=== PATIENT | female | born 1930 | race African-American/Black ===

== ENCOUNTER 2016-06-08 14:29 | Emergency (ER) | payer MEDICARE ==
--- NOTE | 2016-06-08 15:13 | ERRECORD ---
[facility] EMERGENCY RECORD PAST MEDICAL HISTORY (14:36 KMOR) MEDICAL HISTORY: Flu vaccine not up to date, Tetanus not up to date, Pneumococcal vaccine not up to date, Past medical history includes history of hyperlipidemia, high cholesterol, currently being treated, Past medical history includes history of hypertension, which has been treated, Patient is compliant. Past medical history includes cardiac history, congestive heart failure. COPD. CAD. FEMALE SURGICAL HISTORY: pacemaker (2012). pacemaker. PM/DEFIB. PSYCHIATRIC HISTORY: No previous psychiatric history. SOCIAL HISTORY: Patient is a former tobacco user, smoked cigarettes, Patient denies alcohol use, Patient denies drug use,. FAMILY HISTORY: Family istory is not significant. KNOWN ALLERGIES No Known Drug Allergies CURRENT MEDICATIONS furosemide: TABLET : Strength - 20 mg : ORAL Patient Dose: 1 tab(s) Oral.Every other day. (14:37 LGIB) spironolactone: TABLET : Strength - 25 mg : ORAL Patient Dose: 1 tab(s) Oral once a day.at lunch. (14:37 LGIB) atorvastatin: TABLET : Strength - 80 mg : ORAL Patient Dose: 1 tab(s) Oral once a day. (14:37 LGIB) aspirin: TABLET : Strength - 325 mg : ORAL Patient Dose: 1 tab(s) Oral once a day. (14:37 LGIB) isosorbide mononitrate: TABLET, EXTENDED RELEASE 24 HR : Strength - 60 mg : ORAL Patient Dose: 1 tab(s) Oral once a day (in the morning). (14:38 LGIB) lisinopril: TABLET : Strength - 2.5 mg : ORAL Patient Dose: 1 tab(s) Oral once a day (in the evening). (14:38 LGIB) Perforomist: VIAL, NEBULIZER (ML) : Strength - 20 mcg/2 mL : INHALATION Patient Dose: 1 vial(s) Nebulize As Needed. (14:39 LGIB) budesonide: AMPUL FOR NEBULIZATION (ML) : Strength - 0.5 mg/2 mL : INHALATION Patient Dose: Unknown. (14:39 LGIB) VITAL SIGNS VITAL SIGNS: BP: 119/93, Pulse: 111, Resp: 20, Pain: 0, O2 sat: 93 on Room Air, Time: 06/08/2016 14:35. (14:35 KMOR) &a-1R&a+25V*p+0X*b6026P*c202B*c15G*c2P*p-0X&a-25V&a+1R Name: Nuha Vivas : 1930 F86 MedRec: [id number] AcctNum: [id number] Prepared: Zully Jun 08, 2016 15:11 by Interface Page 1 of 2 pMD [facility] EMERGENCY RECORD Temp: 98 (Oral), Time: 06/08/2016 14:36. (14:36 LGIB) BP: 95/69, Pulse: 103, Resp: 20 (Non-Labored), Pain: 0, O2 sat: 94 on Room Air, Time: 06/08/2016 15:07. (15:07 LGIB) MEDICATION ADMINISTRATION SUMMARY Drug Name: DuDavidb, Dose Ordered: 3 mL, Route: Nebulize, Status: Given, Time: 14:49 06/08/2016, Detailed record available in Medication Service section. PROBLEM LIST No recorded problems DIAGNOSIS (14:43 MBRI) FINAL: PRIMARY: ACUTE BRONCHITIS UNSPECIFIED. PRESCRIPTION (14:44 MBRI) Mucinex DM: TABLET,EXTENDED RELEASE MULTIPHASE 12 HR : 1,200 mg-60 mg : ORAL (OTC) : Quantity: 1 Unit: tab(s) Route: ORAL Schedule: every 12 hours Dispense: 20 May substitute. Refills: No Refills . NOTES: No refills. Tesjuanita Perles: CAPSULE (HARD, SOFT, ETC.) : 100 mg : ORAL (Rx) : Quantity: 1 Unit: cap(s) Route: ORAL Schedule: every 8 hours PRN Dispense: 21 May substitute. Refills: No Refills . NOTES: ^s=No refills No refills. Zithromax oral: TABLET : 250 mg : ORAL (Rx) : Quantity: 1 Unit: tab(s) Route: ORAL Schedule: once a day Dispense: 6 May substitute. Refills: No Refills . NOTES: 2 tabs po on day 1 then 1 tab po daily for 4 days No refills. predniSONE oral: TABLET : 20 mg : ORAL : Quantity: 3 Unit: tab(s) Route: ORAL Schedule: once a day Dispense: 12 May substitute. Refills: No Refills . NOTES: No refills. DISPOSITION PATIENT: Disposition Type: Discharge, Disposition: *Discharge Home, Condition: Good. (14:43 MBRI) Patient left the department. (15:09 LGIB) Rahman: KMOR=MYLES Suresh, Mary Ellen LGIB=MYLES Alexis, Amaris MBRI=DO Jauregui Matthew &a-1R&a+25V*p+0X*y2747W*c202B*c15G*c2P*p-0X&a-25V&a+1R Name: Nuha Vivas : 1930 F86 MedRec: [id number] AcctNum: [id number] Prepared: Zully Jun 08, 2016 15:11 by Interface Page 2 of 2 pMD MTDD
--- NOTE | 2016-06-08 15:16 | PICIS ---
[facility] EMERGENCY RECORD TRIAGE (14:33 KMOR) TRIAGE NOTES: Nonproductive cough began last night. no fever, no bodyaches no congestion. (14:33 KMOR) PATIENT: NAME: Nuha Vivas, AGE: 86, GENDER: female, : [id number], TIME OF GREET: Sun Jun 08, 2016 14:30, PREFERRED LANGUAGE: Turkmen, ETHNICITY: Not or , ECODE BILLING MAP: [facility], SSN: [id number], Zip Code: [address], KG WEIGHT: 64.86, PHONE: , , , PERSON ID: [id number], PAYMENT: [employer], PCP: DO PAN KRISTEL. (14:33 KMOR) COMPLAINT: cough. (14:33 KMOR) ADMISSION: URGENCY: 4 Non Urgent, ADMISSION SOURCE: Home, TRANSPORT: CAR, BED: ER -03. (14:33 KMOR) ASSESSMENT: Assessment: A&OX4. RR EVEN AND UNLABORED., Symptoms began yesterday. (14:36 KMOR) PAIN: No complaint of pain. (14:36 KMOR) IMMUNIZATIONS: Flu vaccine not up to date, Tetanus not up to date, Pneumococcal vaccine not up to date. (14:36 KMOR) SIRS SCORING: Heart Rate 110-139 (2), Temp range 96.8-101.1 (0), respiratory rate 12-24 (0), Mental Status altered: no (0), Infection or Suspected Infection: No. (14:36 KMOR) TRIAGE SCREENING: Patient denies suicidal ideation, Patient denies presence of domestic violence. (14:36 KMOR) LMP: LMP: Menopause. (14:36 KMOR) PROVIDERS: TRIAGE NURSE: Mary Ellen Suresh RN. (14:33 KMOR) VITAL SIGNS: BP 119/93, Pulse 111, Resp 20, Pain 0, O2 Sat 93, on Room Air, Time 06/08/2016 14:35. (14:35 KMOR) PREVIOUS VISIT ALLERGIES: No Known Drug Allergies. (14:33 KMOR) No Known Drug Allergies. (14:36 KMOR) KNOWN ALLERGIES No Known Drug Allergies CURRENT MEDICATIONS furosemide: TABLET : Strength - 20 mg : ORAL Patient Dose: 1 tab(s) Oral.Every other day. (14:37 LGIB) spironolactone: TABLET : Strength - 25 mg : ORAL Patient Dose: 1 tab(s) Oral once a day.at lunch. (14:37 LGIB) atorvastatin: TABLET : Strength - 80 mg : ORAL Patient Dose: 1 tab(s) Oral once a day. (14:37 LGIB) aspirin: TABLET : Strength - 325 mg : ORAL Patient Dose: 1 tab(s) Oral once a day. (14:37 LGIB) isosorbide mononitrate: TABLET, EXTENDED RELEASE 24 HR : Strength - 60 mg : ORAL &a-1R&a+25V*p+0X*b1293I*c202B*c15G*c2P*p-0X&a-25V&a+1R Name: Nuha Vivas : 1930 F86 MedRec: [id number] AcctNum: [id number] Prepared: Zully Jun 08, 2016 15:14 by Interface Page 1 of 5 pMD [facility] EMERGENCY RECORD Patient Dose: 1 tab(s) Oral once a day (in the morning). (14:38 LGIB) lisinopril: TABLET : Strength - 2.5 mg : ORAL Patient Dose: 1 tab(s) Oral once a day (in the evening). (14:38 LGIB) Perforomist: VIAL, NEBULIZER (ML) : Strength - 20 mcg/2 mL : INHALATION Patient Dose: 1 vial(s) Nebulize As Needed. (14:39 LGIB) budesonide: AMPUL FOR NEBULIZATION (ML) : Strength - 0.5 mg/2 mL : INHALATION Patient Dose: Unknown. (14:39 LGIB) VITAL SIGNS VITAL SIGNS: BP: 119/93, Pulse: 111, Resp: 20, Pain: 0, O2 sat: 93 on Room Air, Time: 06/08/2016 14:35. (14:35 KMOR) Temp: 98 (Oral), Time: 06/08/2016 14:36. (14:36 LGIB) BP: 95/69, Pulse: 103, Resp: 20 (Non-Labored), Pain: 0, O2 sat: 94 on Room Air, Time: 06/08/2016 15:07. (15:07 LGIB) NURSING ASSESSMENT: ENT (14:47 KMOR) CONSTITUTIONAL: Patient arrives ambulatory, Gait steady, History obtained from patient, Patient appears comfortable, Patient cooperative, Patient alert, Oriented to person, place and time, Skin warm, Skin dry, Skin normal in color, Mucous membranes pink, Mucous membranes moist, Patient is well-groomed, Patient complains of cough, Dry cough stated last night, no fever or chills, no congestion. PAIN: Patient rates pain as 0 out of 10. ENT: Ear assessment findings include ear normal to inspection, Nasal assessment findings include nose normal to inspection, Sinuses normal, Nasal mucosa normal, no complaint of congestion, Mouth and throat assessment findings include mouth inspection normal, Uvula normal, Tonsils normal, Mucous membranes pink, and moist, Able to swallow, Speech normal, no associated fever. RESPIRATORY/CHEST: Breath sounds clear, Respiratory assessment findings include respiratory effort easy, Respirations regular, Conversing normally, Neck and chest exam findings include trachea midline, Chest expansion equal, Chest movement symmetrical, no signs of distress, Associated with cough, dry, non-productive, no associated fever. NOTES: Patient tolerated procedure well. NURSING PROCEDURE: DISCHARGE NOTE (15:08 LGIB) DISCHARGE: Patient discharged to home, ambulating without assistance, family driving, accompanied by other family member, Summary of Care printed/ provided, Patient requested and was provided an electronic copy of Discharge Instructions, Discharge instructions given to patient, Simple or moderate discharge teaching performed, Prescriptions given and instructions on side effects given, Above &a-1R&a+25V*p+0X*g4872V*c202B*c15G*c2P*p-0X&a-25V&a+1R Name: Nuha Vivas : 1930 F86 MedRec: [id number] AcctNum: [id number] Prepared: Zully Jun 08, 2016 15:14 by Interface Page 2 of 5 pMD [facility] EMERGENCY RECORD person(s) verbalized understanding of discharge instructions and follow-up care, Patient treated and evaluated by physician. BELONGINGS: Belongings and valuables with patient at time of discharge include:, Belongings remain with patient, Valuables remain with patient. NURSING PROCEDURE: RESPIRATORY INTERVENTIONS RESPIRATORY INTERVENTIONS: Respiratory interventions indicated for wheezing, Notes: DUONEB. (14:49 LGIB) FOLLOW-UP: After procedure, oxygen saturation 94%, on room air. (15:09 LGIB) ORDER DETAILS Order Name: ASHLEY Lafleur Initial Trmt, Status: Active, Time: 14:47 06/08/2016, User: ROHIT, - Ordered for: DO Jauregui Matthew, - Entered by: DO Jauregui Matthew - Zully Jun 08, 2016 14:47, - Quantity: 1. MEDICATION ADMINISTRATION SUMMARY Drug Name: DuoNeb, Dose Ordered: 3 mL, Route: Nebulize, Status: Given, Time: 14:49 06/08/2016, Detailed record available in Medication Service section. MEDICATION SERVICE (14:49 [facility]) DuoNeb: Order: DuoNeb (ipratropium bromide/albuterol sulfate) - Dose: 3 mL : Nebulize Ordered by: Rodrigo Jauregui DO Entered by: DO Zully Bellamy Jun 08, 2016 14:47 Documented as given by: MYLES Galicia Jun 08, 2016 14:49 Patient, Medication, Dose, Route and Time verified prior to administration. Site: Medication administered via Hand-held nebulizer, With oxygen, Correct patient, time, route, dose and medication confirmed prior to administration, Patient advised of actions and side-effects prior to administration, Allergies confirmed and medications reviewed prior to administration, Patient in position of comfort, Side rails up, Cart in lowest position, Family at bedside. PAST MEDICAL HISTORY (14:36 KMOR) MEDICAL HISTORY: Flu vaccine not up to date, Tetanus not up to date, Pneumococcal vaccine not up to date, Past medical history includes history of hyperlipidemia, high cholesterol, currently being treated, Past medical history includes history of hypertension, which has been treated, Patient is compliant. Past medical history includes cardiac history, congestive heart failure. COPD. CAD. FEMALE SURGICAL HISTORY: pacemaker (2012). pacemaker. PM/DEFIB. &a-1R&a+25V*p+0X*u4735S*c202B*c15G*c2P*p-0X&a-25V&a+1R Name: Nuha Vivas : 1930 F86 MedRec: [id number] AcctNum: [id number] Prepared: Zully Jun 08, 2016 15:14 by Interface Page 3 of 5 pMD [facility] EMERGENCY RECORD PSYCHIATRIC HISTORY: No previous psychiatric history. SOCIAL HISTORY: Patient is a former tobacco user, smoked cigarettes, Patient denies alcohol use, Patient denies drug use,. FAMILY HISTORY: Family istory is not significant. EVENTS TRANSFER: Triage to Emergency Emergency Room -03. (Zully Jun 08, 2016 14:33 KMOR) Removed from Emergency Emergency Room -03. (15:09 LGIB) PROBLEM LIST No recorded problems DIAGNOSIS (14:43 MBRI) FINAL: PRIMARY: ACUTE BRONCHITIS UNSPECIFIED. DISPOSITION PATIENT: Disposition Type: Discharge, Disposition: *Discharge Home, Condition: Good. (14:43 MBRI) Patient left the department. (15:09 LGIB) INSTRUCTION (14:45 MBRI) DISCHARGE: BRONCHITIS, ABX [place] (ADULT). FOLLOWUP: DO PAN KRISTEL, [facility], [address] [place] [address] [place] [address], [phone], Follow up with Primary Care Physician in 10-14 days. SPECIAL: Please return for any further issues or concerns, we would be happy to see you. We hope you feel better soon. Follow-up with your primary physician as needed. PRESCRIPTION (14:44 MBRI) Mucinex DM: TABLET,EXTENDED RELEASE MULTIPHASE 12 HR : 1,200 mg-60 mg : ORAL (OTC) : Quantity: 1 Unit: tab(s) Route: ORAL Schedule: every 12 hours Dispense: 20 May substitute. Refills: No Refills . NOTES: No refills. Tessalon Perles: CAPSULE (HARD, SOFT, ETC.) : 100 mg : ORAL (Rx) : Quantity: 1 Unit: cap(s) Route: ORAL Schedule: every 8 hours PRN Dispense: 21 May substitute. Refills: No Refills . NOTES: ^s=No refills No refills. Zithromax oral: TABLET : 250 mg : ORAL (Rx) : Quantity: 1 Unit: tab(s) Route: ORAL Schedule: once a day Dispense: 6 May substitute. Refills: No Refills . NOTES: 2 tabs po on day 1 then 1 tab po daily for 4 days No refills. predniSONE oral: TABLET : 20 mg : ORAL : Quantity: 3 &a-1R&a+25V*p+0X*n7208R*c202B*c15G*c2P*p-0X&a-25V&a+1R Name: Nuha Vivas : 1930 F86 MedRec: [id number] AcctNum: [id number] Prepared: Zully Jun 08, 2016 15:14 by Interface Page 4 of 5 D [facility] EMERGENCY RECORD Unit: tab(s) Route: ORAL Schedule: once a day Dispense: 12 May substitute. Refills: No Refills . NOTES: No refills. IMAGING (15:10 LGIB) *DISCHARGE INSTRUCTIONS RECEIPT: Image captured from scanner. Page 2 added. Image captured from scanner. *SUPPLY CHARGE SHEET: Image captured from scanner. Rahman: KMOR=MYLES Suresh, Mary Ellen LGIB=MYLES Alexis, Amaris MBRI=DO Jauregui Matthew &a-1R&a+25V*p+0X*s1142D*c202B*c15G*c2P*p-0X&a-25V&a+1R Name: Nuha Vivas : 1930 F86 MedRec: [id number] AcctNum: [id number] Prepared: Zully Jun 08, 2016 15:14 by Interface Page 5 of 5 D [facility] MEDICATION RECONCILIATION You were seen in the Emergency Department on: Zully Jun 08, 2016 KNOWN ALLERGIES No Known Drug Allergies MEDICATIONS GIVEN WHILE IN THE EMERGENCY DEPARTMENT DuoNeb (ipratropium bromide/albuterol sulfate) - Dose: 3 milliliter(s) : Nebulize HOME MEDICATIONS CONTINUE PRESCRIBED aspirin : TABLET : Strength - 325 mg : ORAL Continue as prescribed Patient had been takin tab(s) Oral once a day. atorvastatin : TABLET : Strength - 80 mg : ORAL Continue as prescribed Patient had been takin tab(s) Oral once a day. budesonide : AMPUL FOR NEBULIZATION (ML) : Strength - 0.5 mg/2 mL : INHALATION Continue as prescribed Patient had been taking: Dose unknown furosemide : TABLET : Strength - 20 mg : ORAL Continue as prescribed Patient had been takin tab(s) Oral. Comment: Every other day. isosorbide mononitrate : TABLET, EXTENDED RELEASE 24 HR : Strength - 60 mg : ORAL Continue as prescribed Patient had been takin tab(s) Oral once a day (in the morning). lisinopril : TABLET : Strength - 2.5 mg : ORAL Continue as prescribed Patient had been takin tab(s) Oral once a day (in the evening). &a-1R&a+25V*p+0X*h7578V*c202B*c15G*c2P*p-0X&a-25V&a+1R Name: Nuha Vivas : 1930 F86 MedRec: [id number] AcctNum: [id number] Prepared: Zully Jun 08, 2016 15:14 by Interface pMD [facility] MEDICATION RECONCILIATION Perforomist : VIAL, NEBULIZER (ML) : Strength - 20 mcg/2 mL : INHALATION Continue as prescribed Patient had been takin vial(s) Nebulize As Needed. spironolactone : TABLET : Strength - 25 mg : ORAL Continue as prescribed Patient had been takin tab(s) Oral once a day. Comment: at lunch. Notes from the emergency department Reviewed with family PRESCRIPTIONS (4) Printed (4) Mucinex DM : TABLET,EXTENDED RELEASE MULTIPHASE 12 HR : 1,200 mg-60 mg : ORAL (OTC) Quantity: 1, Unit: tab(s), Route: ORAL (OTC), Schedule: every 12 hours, Dispense: 20 Tessalon Perles : CAPSULE (HARD, SOFT, ETC.) : 100 mg : ORAL (Rx) Quantity: 1, Unit: cap(s), Route: ORAL (Rx), Schedule: every 8 hours PRN, Dispense: 21 Zithromax oral : TABLET : 250 mg : ORAL (Rx) Quantity: 1, Unit: tab(s), Route: ORAL (Rx), Schedule: once a day, Dispense: 6 &a-1R&a+25V*p+0X*u6862G*c202B*c15G*c2P*p-0X&a-25V&a+1R Name: Nuha Vivas : 1930 F86 MedRec: [id number] AcctNum: [id number] Prepared: Zully Jun 08, 2016 15:14 by Interface pMD MTDD
== END 2016-06-08 15:11 | disposition home or self-care (01) ==
LOC: BURERS 14:29
DX: J20.9 Acute bronchitis, unspecified (principal); E78.5 Hyperlipidemia, unspecified; I10 Essential (primary) hypertension
CPT/HCPCS: 94640; J7620

== ENCOUNTER 2016-07-05 12:39 | Emergency (ER) | payer MEDICARE ==
[2016-07-05 13:19] LABS: #Basophils 0.1 thou/uL (0.0-0.2); #Eosinphils 0.2 thou/uL (0.0-0.7); #Lymphocytes 1.7 thou/uL (1.20-3.40); #Monocytes 0.4 thou/uL (0.11-0.59); #Neutrophils 3.5 thou/uL (1.40-6.50); %Basophils 1.5 % (0.0-1.0); %Eosinophils 2.6 % (0.0-10.0); %Monocytes 7.6 % (0.0-10.0); Hematocrit 43.9 % (36.0-47.0); Mean Platelet Volume 6.8 fL (7.4-10.4); Red Blood Cell (RBC) Count 4.58 mill/uL (4.20-5.40); White Blood Cell (WBC) Count 5.8 thou/uL (4.8-10.8)
[2016-07-05 13:32] LABS: ALT (SGPT) 23 U/L (0-55); AST (SGOT) 28 U/L (5-34); Alkaline Phosphatase 110 U/L (40-150); Anion Gap 11 mmol/L (10-20); BUN (Urea Nitrogen) 19 mg/dL (9.8-20.1); Bilirubin, Total 0.4 mg/dL (0.2-1.2); Calc. Creatinine Clearance 0 mL/min (70-130); Calcium 9.7 mg/dL (7.8-10.44); Carbon Dioxide 28 mmol/L (23-31); Chloride 105 mmol/L (98-107); Estimated GFR-MDRD 74; Protein, Total 6.2 g/dL (5.8-8.1)
[2016-07-05 13:36] LABS: Troponin I 0.024 ng/mL (< 0.028)
--- NOTE | 2016-07-05 15:10 | PICIS ---
[facility] EMERGENCY RECORD TRIAGE ([facility] Jul 05, 2016 12:52 LGIB) TRIAGE NOTES: cp for 2 hours. ([facility] Jul 05, 2016 12:52 LGIB) PATIENT: NAME: Nuha Vivas, AGE: 86, GENDER: female, : [id number], TIME OF GREET: Sat Jul 05, 2016 12:39, PREFERRED LANGUAGE: Romansh, ETHNICITY: Not or , ECODE BILLING MAP: [facility], SSN: [id number], Zip Code: [address], KG WEIGHT: 64.41, PHONE: , , , PERSON ID: [id number], PAYMENT: [place], PCP: DO PAN KRISTEL. ([facility] Jul 05, 2016 12:52 LGIB) COMPLAINT: HIGH RISK COMPLAINT: Chest Pain. ([facility] Jul 05, 2016 12:52 LGIB) ADMISSION: URGENCY: 2 Emergent, ADMISSION SOURCE: Home, TRANSPORT: CAR, BED: ER -02. ([facility] Jul 05, 2016 12:52 LGIB) SIRS SCORING: Heart Rate 55-109 (0), Temp range 96.8-101.1 (0), respiratory rate 12-24 (0), Mental Status altered: no (0). (13:43 LGIB) PROVIDERS: TRIAGE NURSE: Amaris Alexis RN. ([facility] Jul 05, 2016 12:52 LGIB) PREVIOUS VISIT ALLERGIES: No Known Drug Allergies. ([facility] Jul 05, 2016 12:52 LGIB) No Known Drug Allergies. (13:43 LGIB) KNOWN ALLERGIES No Known Allergies (Unconfirmed) No Known Drug Allergies (Unconfirmed) CURRENT MEDICATIONS (14:21 LGIB) furosemide: TABLET : Strength - 20 mg : ORAL Patient Dose: 1 tab(s) Oral.Every other day. spironolactone: TABLET : Strength - 25 mg : ORAL Patient Dose: 1 tab(s) Oral once a day.at lunch. atorvastatin: TABLET : Strength - 80 mg : ORAL Patient Dose: 1 tab(s) Oral once a day. aspirin: TABLET : Strength - 325 mg : ORAL Patient Dose: 1 tab(s) Oral once a day. isosorbide mononitrate: TABLET, EXTENDED RELEASE 24 HR : Strength - 60 mg : ORAL Patient Dose: 1 tab(s) Oral once a day (in the morning). lisinopril: TABLET : Strength - 2.5 mg : ORAL Patient Dose: 1 tab(s) Oral once a day (in the evening). Perforomist: VIAL, NEBULIZER (ML) : Strength - 20 mcg/2 mL : INHALATION Patient Dose: 1 vial(s) Nebulize As Needed. budesonide: &a-1R&a+25V*p+0X*e7425M*c202B*c15G*c2P*p-0X&a-25V&a+1R Name: Nuha Vivas : 1930 F86 MedRec: [id number] AcctNum: [id number] Prepared: Sat Jul 05, 2016 19:52 by Interface Page [address] [facility] EMERGENCY RECORD AMPUL FOR NEBULIZATION (ML) : Strength - 0.5 mg/2 mL : INHALATION Patient Dose: Unknown. VITAL SIGNS VITAL SIGNS: BP: 159/107, Pulse: 99, Resp: 18 (Non-Labored), Temp: 98.1 (Oral), O2 sat: 95 on Room Air, Time: 07/05/2016 12:47. (12:47 LGIB) Pain: utd, Time: 07/05/2016 12:53. (12:53 LGIB) Pain: 0, Time: 07/05/2016 14:21. (14:21 LGIB) BP: 134/99, Pulse: 81, Resp: 18 (Non-Labored), O2 sat: 95 on Room Air, Time: 07/05/2016 14:15. (14:15 LGIB) BP: 134/87, Pulse: 85, Resp: 18, Temp: 98.4 (Oral), Pain: 0, O2 sat: 93 on Room Air, Time: 07/05/2016 14:46. (14:46 AHOO) NURSING ASSESSMENT: FALL RISK (14:19 LGIB) FALL RISK: Fall risk assessment findings include: no history of falls (0), No bed rest greater than 2 days (0), No use of level of consciousness altering agents with mentation or cognitive changes (0), No change in blood pressure (0), No sensory deficits (0), Impaired mobility (3), No neurologic diagnosis (0), No elimination problems (0), No confusion (0), Total score 3. 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 NAD, RR EVEN AND UNLABORED. DESCRIBES PAIN TINGLING. PT STATES SHE HAS SOB BUT IS NOT SYMPTOMATIC. PAIN: tingling pain, to the left chest, PATIENT CANNOT GIVE A NUMERIC SCALE, Pain exacerbated by nothing. RESPIRATORY/CHEST: Breath sounds clear, Respiratory assessment findings include respiratory effort easy, Respirations regular, Conversing normally, Neck and chest exam findings include trachea midline, Chest expansion equal, Chest movement symmetrical, no signs of distress, no retractions noted, no cyanosis, no associated cough noted, no associated fever. ENT: Ear assessment findings include ear normal to inspection, Nasal assessment findings include nose normal to inspection, Mouth and throat assessment findings include mouth inspection normal. SAFETY: Side rails up, Cart/Stretcher in lowest position, Family at bedside, Call light within reach, Hospital ID band on. NURSING ASSESSMENT: SKIN (14:51 AHOO) CONSTITUTIONAL: Complex assessment performed, Patient arrives ambulatory, Gait steady, History obtained from patient, Patient appears comfortable, Patient cooperative, Patient alert, Oriented to &a-1R&a+25V*p+0X*r5224N*c202B*c15G*c2P*p-0X&a-25V&a+1R Name: Nuha Vivas : 1930 F86 MedRec: [id number] AcctNum: [id number] Prepared: [place] Jul 05, 2016 19:52 by Interface Page [address] [facility] EMERGENCY RECORD person, place and time, Skin warm, Skin dry, Skin normal in color, Mucous membranes pink, Mucous membranes moist, Patient is well-groomed, Patient complains of CHEST PAIN. LISSET SCALE: (4) Sensory perception has no impairment, (4) Skin is rarely moist, (4) Patient walks frequently, (4) No mobility limitations, (3) Adequate nutrition, (2) Patient has potential problem moving, Lisset Risk Total: 21. NURSING PROCEDURE: BEDSIDE RADIOLOGY (12:59 LGIB) BEDSIDE RADIOLOGY: Portable chest x-ray performed. NURSING PROCEDURE: BEDSIDE SIRS TESTING (14:48 AHOO) SCORES: Heart Rate 55-109 (0), Temp range 96.8-101.1 (0), respiratory rate 12-24 (0), Latest WBC 3-14.9 (0), Mental Status altered: no (0), Infection or Suspected Infection: No. NURSING PROCEDURE: IV IV SITE 1: IV therapy indicated for medication administration, IV established, to the right antecubital, using a 20 gauge catheter, in one attempt, Saline lock established, Flushed with normal saline (mls): 10, Labs drawn at time of placement, labeled in the presence of the patient and sent to lab. (13:00 LGIB) FOLLOW-UP SITE 1: After procedure, sterile transparent dressing applied, After procedure, no drainage at IV site, After procedure, no swelling at IV site, After procedure, no redness at IV site, Notes: IV PATENT UPON TRANSFER WITHOUT ANY SWELLING, BRUISING OR BLEEDING. (14:49 AHOO) NURSING PROCEDURE: NURSE NOTES (14:21 LGIB) NURSES NOTES: Notes: NAD, RR EVEN AND UNLABORED. NO NEEDS AT THIS TIME. PT IS PAIN FREE. NURSING PROCEDURE: TRANSFER TRANSFER: Reason for transfer need for specialized care, Diagnosis: CHEST PAIN, Accepting institution: [facility], Accepting physician: DR CLEMENT, Referring physician: DR LEE, Transported by urgent ambulance, Summary of Care printed, Copy of patient record prepared for receiving facility, Medication reconciliation form prepared and sent to receiving facility, Patient consent for transfer signed, Family member contacted, PT FAMILY AT BEDSIDE AND NOTIFIED, Notes: 1426 CALLED TRANSFER CENTER AND SPOKE WITH BRYANT, 1431 DR CLEMENT ACCEPTED, 1431 ACCEPTIN AD IS [facility], 1435 CALLED EMS AND SPOKE WITH MAYE, 1450 EMS ARRIVED TO ER, 1457 EMS LEFT WITH THE PT. (14:57 AHOO) Report called to receiving facility, MYLES VOSS, Provided opportunity to answer questions. (15:00 LGIB) ORDER DETAILS Order Name: B type Natriuretic Peptide, Status: Active, Time: 12:53 &a-1R&a+25V*p+0X*c1827P*c202B*c15G*c2P*p-0X&a-25V&a+1R Name: Nuha Vivas : 1930 F86 MedRec: [id number] AcctNum: [id number] Prepared: Sat Jul 05, 2016 19:52 by Interface Page [address] [facility] EMERGENCY RECORD 07/05/2016, User: WMEI, - Ordered for: DO Lee William, - Entered by: DO Lee William - Sat Jul 05, 2016 12:53, - Quantity: 1, Order Name: Cardiac Profile w/CKMB & Troponin - I, Status: Active, Time: 12:53 07/05/2016, User: WMEI, - Ordered for: DO Lee William, - Entered by: DO Lee William - Sat Jul 05, 2016 12:53, - Quantity: 1, Order Name: CBC with Differential, Status: Active, Time: 12:53 07/05/2016, User: WMEI, - Ordered for: DO Lee William, - Entered by: DO Lee William - Sat Jul 05, 2016 12:53, - Quantity: 1, Order Name: Comprehensive Metabolic Panel, Status: Active, Time: 12:53 07/05/2016, User: WMEI, - Ordered for: DO Lee William, - Entered by: DO Lee William - Sat Jul 05, 2016 12:53, - Quantity: 1, Order Name: EKG 12 Lead in Emergency Room, Status: Active, Time: 12:53 07/05/2016, User: WMEI, - Ordered for: DO Lee William, - Entered by: DO Lee William - Sat Jul 05, 2016 12:53, - Quantity: 1, Order Name: SALINE LOCK, Status: Done, Time: 12:54 07/05/2016, User: LGIB, - Ordered for: DO Lee William, - Entered by: DO Lee William - Sat Jul 05, 2016 12:53, - Quantity: 1, Order Name: XR Chest 1 View Portable, Status: Active, Time: 12:53 07/05/2016, User: [facility], - Ordered for: DO Lee William, - Entered by: DO Lee William - Sat Jul 05, 2016 12:53, - Quantity: 1. MEDICATION ADMINISTRATION SUMMARY Drug Name: aspirin oral, Dose Ordered: 324 mg, Route: Oral, Status: Given, Time: 12:59 07/05/2016, Detailed record available in Medication Service section. MEDICATION SERVICE aspirin oral: Order: aspirin oral (aspirin) - Dose: 324 mg : Oral Ordered by: Nikita Lee DO Entered by: Nikita Lee DO Sat Jul 05, 2016 12:53 , Acknowledged by: Amaris Alexis RN Sat Jul 05, 2016 12:54 Documented as given by: Amaris Alexis RN Sat Jul 05, 2016 12:59 Patient, Medication, Dose, Route and Time verified prior to administration. &a-1R&a+25V*p+0X*b7092A*c202B*c15G*c2P*p-0X&a-25V&a+1R Name: Nuha Vivas : 1930 F86 MedRec: [id number] AcctNum: [id number] Prepared: Sat Jul 05, 2016 19:52 by Interface Page [address] [facility] EMERGENCY RECORD Site: Medication administered P.O., Correct patient, time, route, dose and medication confirmed prior to administration, Patient advised of actions and side-effects prior to administration, Allergies confirmed and medications reviewed prior to administration, Patient in position of comfort, Side rails up, Cart in lowest position, Family at bedside. : Follow Up : Response assessment performed, No signs or symptoms of allergic reaction noted. (14:49 AHOO) HPI CHEST PAIN (12:53 [facility]) CHIEF COMPLAINT: Patient presents for evaluation of chest pain, ongoing, Patient presents for evaluation of stent? 2 yrs ago. HISTORIAN: History provided by patient, for 2 hrs substernal better but still present. LOCATION: Symptoms are localized, most severe in substernal area. QUALITY: Pain is dull in nature. TIME COURSE: Sudden onset of symptoms. ASSOCIATED WITH: No associated chills, No associated fever, Associated with shortness of breath, intermittent. EXACERBATED BY: Patient's condition not exacerbated by cough, Patient's condition not exacerbated by deep breaths. RELIEVED BY: Patient's condition relieved by nothing. ROS (12:55 WMEI) CONSTITUTIONAL: Historian denies chills, denies fever. EYES: Historian denies eye pain, denies eye discharge. ENT: Historian denies otalgia, denies sore throat. CARDIOVASCULAR: Historian reports chest pain, substernal, no radiation. RESPIRATORY: Historian denies cough, reports shortness of breath. see hpi. GI: Historian denies abdominal pain, denies nausea, denies vomiting. GENITOURINARY FEMALE: Historian denies dysuria, denies urgency. MUSCULOSKELETAL: Historian denies injury, denies joint swelling. SKIN: Historian denies skin changes, denies skin lesions. NEUROLOGIC: Historian denies focal weakness, denies mental status changes. PSYCHIATRIC: Historian denies alcohol abuse, denies depression, denies drug abuse, denies emotional lability. PAST MEDICAL HISTORY (13:43 LGIB) MEDICAL HISTORY: Flu vaccine not up to date, Tetanus not up to date, Pneumococcal vaccine not up to date, Past medical history includes history of hyperlipidemia, high cholesterol, currently being treated, Past medical history includes history of hypertension, which has been treated, Patient is compliant. Past medical history includes &a-1R&a+25V*p+0X*x1394Y*c202B*c15G*c2P*p-0X&a-25V&a+1R Name: Nuha Vivas : 1930 F86 MedRec: [id number] AcctNum: [id number] Prepared: [place] Jul 05, 2016 19:52 by Interface Page [address] [facility] EMERGENCY RECORD cardiac history, congestive heart failure. COPD. CAD. verified 07/05/16. FEMALE SURGICAL HISTORY: PM/DEFIB. VERIFIED 07/05/16. PSYCHIATRIC HISTORY: No previous psychiatric history. VERIFIED 07/05/16. SOCIAL HISTORY: Patient is a former tobacco user, smoked cigarettes, Patient denies alcohol use, Patient denies drug use,. VERIFIED 07/05/16. FAMILY HISTORY: Family istory is not significant. PHYSICAL EXAM (12:57 WMEI) CONSTITUTIONAL: Vital Signs Reviewed, Patient appears non toxic, Patient alert and oriented to person, place and time. HEAD: Head exam included findings of head atraumatic, normocephalic. EYES: Conjunctiva normal, Sclera normal. ENT: Ear exam normal, Nose exam normal, Pharynx exam normal. NECK: Neck exam included findings of normal range of motion, Trachea midline. RESPIRATORY CHEST: Respiratory exam included findings of no respiratory distress, Breath sounds clear, Chest exam included findings of chest movement symmetrical. CARDIOVASCULAR: Heart rate regular rate and rhythm, Heart sounds normal. ABDOMEN FEMALE: Abdominal exam included findings of abdomen nontender, Liver normal, Spleen normal. BACK: Back exam included findings of normal inspection, range of motion normal. LOWER EXTREMITY: Lower extremity exam included findings of inspection normal, Range of motion normal, Motor strength normal. NEURO: Danica coma scale 15, Neuro exam findings include patient oriented to person, place and time, Speech normal, Gait normal. SKIN: Skin exam included findings of skin warm, dry, and normal in color. LYMPHATIC: Lymphatic exam normal. PSYCHIATRIC: Psychiatric exam included findings of patient oriented to person place and time, Normal affect, Judgment normal, Insight normal. EVENTS TRANSFER: Triage to Emergency Emergency Room -02. (Sat Jul 05, 2016 12:52 LGIB) Removed from Emergency Emergency Room -02. (14:58 LGIB) RADIOLOGYINTERPRETATION (14:32 WMEI) MANAGER PARTY: Preliminary review of x-rays by, ED Physician, no change from chest last yr. PROBLEM LIST No recorded problems &a-1R&a+25V*p+0X*a9930N*c202B*c15G*c2P*p-0X&a-25V&a+1R Name: Nuha Vivas : 1930 F86 MedRec: [id number] AcctNum: [id number] Prepared: Sat Jul 05, 2016 19:52 by Interface Page [address] [facility] EMERGENCY RECORD DIAGNOSIS (14:01 WMEI) FINAL: PRIMARY: chest pain r/o mi. DISPOSITION PATIENT: Disposition Type: Discharge, Disposition: *Discharge Home. (14:01 WMEI) Disposition Type: Transfer, Disposition: Transfer to [facility], Disposition Transport: Ambulance, Condition: Fair. (14:01 WMEI) Patient left the department. (14:58 LGIB) PRESCRIPTION No recorded prescriptions IMAGING *EKG: Image captured from scanner. (14:01 AHOO) CONSENTS: Image captured from scanner. (14:55 AHOO) *MEMORANDUM OF TRANSFER: Image captured from scanner. (14:56 AHOO) PHYSICIAN CERTIFICATION STATEMENT: Image captured from scanner. (14:56 AHOO) *SUPPLY CHARGE SHEET: Image captured from scanner. (14:56 AHOO) ADMIN (19:48 [facility]) DIGITAL SIGNATURE: DO Lee William. RESULTS (14:52 LGIB) LABORATORY: B type Natriuretic Peptide Collection DT: [facility] Jul 05, 2016 13:15, *B type Natriuretic Peptide 106.8 - H pg/mL, Range (0-100). Cardiac Profile w/CKMB & TropI Collection DT: [facility] Jul 05, 2016 13:15, CKMB 3.2 ng/mL, Range (0-6.6), Troponin I 0.024 ng/mL, Range (< 0.028), Reference Range , 0.00 - 0.028 ng/mL Negative 0.029 - 0.29 ng/mL , Indeterminate Greater or Equal to 0.3 ng/mL Strongly suggests [place] , . Comprehensive Metabolic Panel Collection DT: [facility] Jul 05, 2016 13:15, Sodium 140 mmol/L, Range (136-145), Potassium 4.0 mmol/L, Range (3.5-5.1), Chloride 105 mmol/L, Range (98-107), Carbon Dioxide 28 mmol/L, Range (23-31), Anion Gap 11 mmol/L, Range (10-20), BUN (Urea Nitrogen) 19 mg/dL, Range (9.8-20.1), Creatinine 0.88 mg/dL, Range (0.6-1.1), Estimated GFR-MDRD 74 , Reference Range for Estimated GFR: Greater than 90, mL/min/1.73 m2 &a-1R&a+25V*p+0X*j4227K*c202B*c15G*c2P*p-0X&a-25V&a+1R Name: Nuha Vivas : 1930 F86 MedRec: [id number] AcctNum: [id number] Prepared: Sat Jul 05, 2016 19:52 by Interface Page [address] [facility] EMERGENCY RECORD NOTE: The MDRD equation has not been validated for use, with the elderly (over 70 years of age), women, patients with, serious comorbid condition or persons with extremes of body size, muscle, mass, or nutritional status. , *Glucose 140 - H mg/dL, Range (83-110), Calcium 9.7 mg/dL, Range (7.8-10.44), Bilirubin, Total 0.4 mg/dL, Range (0.2-1.2), Protein, Total 6.2 g/dL, Range (5.8-8.1), NOTE: Plasma values are generally 0.3 to 0.5 g/dL higher than serum values, due to the presence of fibrinogen. , *Albumin 3.2 - L g/dL, Range (3.4-4.8), Globulin 3.0 g/dL, Range (2.4-3.5), *Alb/Glob Ratio 1.1 - L g/dL, Range (1.2-2.2), Alkaline Phosphatase 110 U/L, Range (40-150), AST (SGOT) 28 U/L, Range (5-34), ALT (SGPT) 23 U/L, Range (0-55). CBC with Differential Collection DT: Sat Jul 05, 2016 13:15, White Blood Cell (WBC) Count 5.8 thou/uL, Range (4.8-10.8), Red Blood Cell (RBC) Count 4.58 mill/uL, Range (4.20-5.40), Hemoglobin 13.9 g/dL, Range (12.0-16.0), Hematocrit 43.9 %, Range (36.0-47.0), Mean Corpuscular Volume 95.8 fl, Range (81.0-99.0), Mean Corpuscular Hemoglobin 30.3 pg, Range (27.0-31.0), *Mean Corpuscular HGB CONC 31.6 - L g/dL, Range (32.0-36.0), RBC Distribution Width 13.5 %, Range (11.5-14.5), Platelet Count 272 thou/uL, Range (130-400), *Mean Platelet Volume 6.8 - L fL, Range (7.4-10.4), %Neutrophils 59.9 %, Range (42.0-75.0), %Lymphocytes 28.4 %, Range (21.0-51.0), %Monocytes 7.6 %, Range (0.0-10.0), %Eosinophils 2.6 %, Range (0.0-10.0), *%Basophils 1.5 - H %, Range (0.0-1.0), #Neutrophils 3.5 thou/uL, Range (1.40-6.50), #Lymphocytes 1.7 thou/uL, Range (1.20-3.40), #Monocytes 0.4 thou/uL, Range (0.11-0.59), #Eosinphils 0.2 thou/uL, Range (0.0-0.7), #Basophils 0.1 thou/uL, Range (0.0-0.2). Rahman: AHOO=JOHN Ramirez, September LGIB=MYLES Alexis, Amaris WMEI=DO Lee William &a-1R&a+25V*p+0X*l8801P*c202B*c15G*c2P*p-0X&a-25V&a+1R Name: Nuha Vivas : 1930 F86 MedRec: [id number] AcctNum: [id number] Prepared: [place] Jul 05, 2016 19:52 by Interface Page 8 of 8 pMD MTDD
--- NOTE | 2016-07-05 15:20 | ERRECORD ---
[facility] EMERGENCY RECORD HPI CHEST PAIN (12:53 WMEI) CHIEF COMPLAINT: Patient presents for evaluation of chest pain, ongoing, Patient presents for evaluation of stent? 2 yrs ago. HISTORIAN: History provided by patient, for 2 hrs substernal better but still present. LOCATION: Symptoms are localized, most severe in substernal area. QUALITY: Pain is dull in nature. TIME COURSE: Sudden onset of symptoms. ASSOCIATED WITH: No associated chills, No associated fever, Associated with shortness of breath, intermittent. EXACERBATED BY: Patient's condition not exacerbated by cough, Patient's condition not exacerbated by deep breaths. RELIEVED BY: Patient's condition relieved by nothing. ROS (12:55 WMEI) CONSTITUTIONAL: Historian denies chills, denies fever. EYES: Historian denies eye pain, denies eye discharge. ENT: Historian denies otalgia, denies sore throat. CARDIOVASCULAR: Historian reports chest pain, substernal, no radiation. RESPIRATORY: Historian denies cough, reports shortness of breath. see hpi. GI: Historian denies abdominal pain, denies nausea, denies vomiting. GENITOURINARY FEMALE: Historian denies dysuria, denies urgency. MUSCULOSKELETAL: Historian denies injury, denies joint swelling. SKIN: Historian denies skin changes, denies skin lesions. NEUROLOGIC: Historian denies focal weakness, denies mental status changes. PSYCHIATRIC: Historian denies alcohol abuse, denies depression, denies drug abuse, denies emotional lability. PAST MEDICAL HISTORY (13:43 LGIB) MEDICAL HISTORY: Flu vaccine not up to date, Tetanus not up to date, Pneumococcal vaccine not up to date, Past medical history includes history of hyperlipidemia, high cholesterol, currently being treated, Past medical history includes history of hypertension, which has been treated, Patient is compliant. Past medical history includes cardiac history, congestive heart failure. COPD. CAD. verified 07/05/16. FEMALE SURGICAL HISTORY: PM/DEFIB. VERIFIED 07/05/16. PSYCHIATRIC HISTORY: No previous psychiatric history. VERIFIED 07/05/16. SOCIAL HISTORY: Patient is a former tobacco user, smoked cigarettes, Patient denies alcohol use, Patient denies drug use,. VERIFIED 07/05/16. FAMILY HISTORY: Family istory is not significant. &a-1R&a+25V*p+0X*[id number]*c202B*c15G*c2P*p-0X&a-25V&a+1R Name: Nuha Vivas : 1930 F86 MedRec: [id number] AcctNum: [id number] Prepared: Sat Jul 05, 2016 19:52 by Interface Page 1 of 3 pMD [facility] EMERGENCY RECORD KNOWN ALLERGIES No Known Allergies (Unconfirmed) No Known Drug Allergies (Unconfirmed) CURRENT MEDICATIONS (14:21 LGIB) furosemide: TABLET : Strength - 20 mg : ORAL Patient Dose: 1 tab(s) Oral.Every other day. spironolactone: TABLET : Strength - 25 mg : ORAL Patient Dose: 1 tab(s) Oral once a day.at lunch. atorvastatin: TABLET : Strength - 80 mg : ORAL Patient Dose: 1 tab(s) Oral once a day. aspirin: TABLET : Strength - 325 mg : ORAL Patient Dose: 1 tab(s) Oral once a day. isosorbide mononitrate: TABLET, EXTENDED RELEASE 24 HR : Strength - 60 mg : ORAL Patient Dose: 1 tab(s) Oral once a day (in the morning). lisinopril: TABLET : Strength - 2.5 mg : ORAL Patient Dose: 1 tab(s) Oral once a day (in the evening). Perforomist: VIAL, NEBULIZER (ML) : Strength - 20 mcg/2 mL : INHALATION Patient Dose: 1 vial(s) Nebulize As Needed. budesonide: AMPUL FOR NEBULIZATION (ML) : Strength - 0.5 mg/2 mL : INHALATION Patient Dose: Unknown. VITAL SIGNS VITAL SIGNS: BP: 159/107, Pulse: 99, Resp: 18 (Non-Labored), Temp: 98.1 (Oral), O2 sat: 95 on Room Air, Time: 07/05/2016 12:47. (12:47 LGIB) Pain: utd, Time: 07/05/2016 12:53. (12:53 LGIB) Pain: 0, Time: 07/05/2016 14:21. (14:21 LGIB) BP: 134/99, Pulse: 81, Resp: 18 (Non-Labored), O2 sat: 95 on Room Air, Time: 07/05/2016 14:15. (14:15 LGIB) BP: 134/87, Pulse: 85, Resp: 18, Temp: 98.4 (Oral), Pain: 0, O2 sat: 93 on Room Air, Time: 07/05/2016 14:46. (14:46 AHOO) PHYSICAL EXAM (12:57 WMEI) CONSTITUTIONAL: Vital Signs Reviewed, Patient appears non toxic, Patient alert and oriented to person, place and time. HEAD: Head exam included findings of head atraumatic, normocephalic. EYES: Conjunctiva normal, Sclera normal. ENT: Ear exam normal, Nose exam normal, Pharynx exam normal. NECK: Neck exam included findings of normal range of motion, &a-1R&a+25V*p+0X*[id number]*c202B*c15G*c2P*p-0X&a-25V&a+1R Name: Nuha Vivas : 1930 F86 MedRec: [id number] AcctNum: [id number] Prepared: Sat Jul 05, 2016 19:52 by Interface Page 2 of 3 pMD [facility] EMERGENCY RECORD Trachea midline. RESPIRATORY CHEST: Respiratory exam included findings of no respiratory distress, Breath sounds clear, Chest exam included findings of chest movement symmetrical. CARDIOVASCULAR: Heart rate regular rate and rhythm, Heart sounds normal. ABDOMEN FEMALE: Abdominal exam included findings of abdomen nontender, Liver normal, Spleen normal. BACK: Back exam included findings of normal inspection, range of motion normal. LOWER EXTREMITY: Lower extremity exam included findings of inspection normal, Range of motion normal, Motor strength normal. NEURO: Danica coma scale 15, Neuro exam findings include patient oriented to person, place and time, Speech normal, Gait normal. SKIN: Skin exam included findings of skin warm, dry, and normal in color. LYMPHATIC: Lymphatic exam normal. PSYCHIATRIC: Psychiatric exam included findings of patient oriented to person place and time, Normal affect, Judgment normal, Insight normal. RADIOLOGYINTERPRETATION (14:32 WMEI) CENTRAL SUPPLY TECH: Preliminary review of x-rays by, ED Physician, no change from chest last yr. MEDICATION ADMINISTRATION SUMMARY Drug Name: aspirin oral, Dose Ordered: 324 mg, Route: Oral, Status: Given, Time: 12:59 07/05/2016, Detailed record available in Medication Service section. PROBLEM LIST No recorded problems DIAGNOSIS (14:01 WMEI) FINAL: PRIMARY: chest pain r/o mi. PRESCRIPTION No recorded prescriptions DISPOSITION PATIENT: Disposition Type: Discharge, Disposition: *Discharge Home. (14:01 WMEI) Disposition Type: Transfer, Disposition: Transfer to [facility], Disposition Transport: Ambulance, Condition: Fair. (14:01 WMEI) Patient left the department. (14:58 LGIB) Rahman: AHOO=JOHN Ramirez, September LGIB=MYLES Alexis, Amaris WMEI=DO Lee William &a-1R&a+25V*p+0X*[id number]*c202B*c15G*c2P*p-0X&a-25V&a+1R Name: Nuha Vivas : 1930 F86 MedRec: [id number] AcctNum: [id number] Prepared: [place]on Jul 05, 2016 19:52 by Interface Page 3 of 3 pMD MTDD
--- NOTE | 2016-07-05 19:50 | RAD ---
PORTABLE CHEST 07/05/16 An AP portable film at 1254 is compared with a 12/23/15 study. The heart size is stable being minimally enlarged. There are no clear congestive findings or pleural effusions. An AICD remains in place. No focal pulmonary infiltrates are seen. IMPRESSION: No acute thoracic findings. POS: HOME
== END 2016-07-05 14:57 | disposition short-term general hospital (02) ==
LOC: BURERS 12:39
DX: R07.2 Precordial pain (principal); I11.0 Hypertensive heart disease with heart failure; I50.9 Heart failure, unspecified; J44.9 Chronic obstructive pulmonary disease, unspecified; I25.10 Atherosclerotic heart disease of native coronary artery without angina pectoris; E78.00 Pure hypercholesterolemia, unspecified; E78.5 Hyperlipidemia, unspecified; Z87.891 Personal history of nicotine dependence; Z79.82 Long term (current) use of aspirin; Z79.899 Other long term (current) drug therapy
CPT/HCPCS: 71010; 80053; 82553; 83880; 84484; 85025; 93005

== ENCOUNTER 2016-12-05 16:32 | Outpatient (CLI) | payer MEDICARE ==
--- NOTE | 2016-12-05 20:24 | RAD ---
CHEST TWO VIEWS: Date: 12-05-16 Comparison: 07-05-16 FINDINGS: COPD is present with flattening of the diaphragm as usual. The heart size has not changed over the i nterval. An AICD remains in place. Arterial sclerotic changes are prominent in the aortic arch. I see no focal consolidation to suggest pneumonia. There is a little increased fluid in the major fi ssure on the lateral view, more so than was present on the prior exam. Nevertheless, the vasculature itself does not appear to be terribly congested, so I cannot reliably diagnose congestive heart emily lure at this moment. Further follow up may be in order. The bones are osteopenia. IMPRESSION: 1. COPD and arterial sclerosis. 2. Trace of fluid in the major fissure on the lateral view without clear cut current findings of CHF or pneumonia. Further follow up could be needed. POS: HOME
== END 2016-12-05 16:33 | disposition home or self-care (01) ==
LOC: BURRAD 16:32
PROVIDERS: ATTEND Family Medicine
DX: R09.02 Hypoxemia (principal); J44.9 Chronic obstructive pulmonary disease, unspecified
CPT/HCPCS: 71020

== ENCOUNTER 2017-07-10 07:12 | Emergency (ER) | payer MEDICARE | END 2017-07-10 07:49 | disposition home or self-care (01) | LOC: BURERS 07:12 | DX: J20.9 Acute bronchitis, unspecified (principal); E78.5 Hyperlipidemia, unspecified; I11.0 Hypertensive heart disease with heart failure; I50.9 Heart failure, unspecified; J44.9 Chronic obstructive pulmonary disease, unspecified; I25.10 Atherosclerotic heart disease of native coronary artery without angina pectoris; Z87.891 Personal history of nicotine dependence; Z79.82 Long term (current) use of aspirin; Z79.899 Other long term (current) drug therapy | CPT/HCPCS: 99283 ==

== ENCOUNTER 2017-07-10 14:33 | Inpatient (IN) | payer MEDICARE ==
[2017-07-10 15:28] LABS: ALT (SGPT) 22 U/L (8-55); AST (SGOT) 26 U/L (5-34); Albumin 3.2 g/dL (3.4-4.8); Alkaline Phosphatase 110 U/L (40-150); Anion Gap 15 mmol/L (10-20); BUN (Urea Nitrogen) 19 mg/dL (9.8-20.1); Bilirubin, Total 0.2 mg/dL (0.2-1.2); Calc. Creatinine Clearance 0 mL/min (70-130); Calcium 9.5 mg/dL (7.8-10.44); Carbon Dioxide 27 mmol/L (23-31); Chloride 100 mmol/L (98-107); Estimated GFR-MDRD 89; Glucose 114 mg/dL (83-110); Potassium 3.8 mmol/L (3.5-5.1); Protein, Total 6.2 g/dL (6.0-8.3); Sodium 138 mmol/L (136-145)
[2017-07-10 15:30] LABS: CKMB 1.6 ng/mL (0-6.6); Troponin I Less than 0.010 ng/mL (< 0.028)
[2017-07-10 15:33] LABS: Hemoglobin 14.8 g/dL (12.0-16.0); Mean Corpuscular HGB CONC 34.8 g/dL (32.0-36.0); Mean Corpuscular Hemoglobin 32.5 pg (27.0-31.0); Mean Corpuscular Volume 93.3 fl (81.0-99.0); Mean Platelet Volume 6.5 fL (7.4-10.4); Platelet Count 189 thou/uL (130-400); RBC Distribution Width 12.5 % (11.5-14.5); Red Blood Cell (RBC) Count 4.56 mill/uL (4.20-5.40); White Blood Cell (WBC) Count 5.9 thou/uL (4.8-10.8)
[2017-07-10 15:37] LABS: #Basophils 0.1 thou/uL (0.0-0.2); #Lymphocytes 0.5 thou/uL (1.20-3.40); #Monocytes 0.6 thou/uL (0.11-0.59); #Neutrophils 4.7 thou/uL (1.40-6.50); %Basophils 1.6 % (0.0-1.0); %Eosinophils 0.2 % (0.0-10.0); %Lymphocytes 8.2 % (21.0-51.0); %Monocytes 9.8 % (0.0-10.0); %Neutrophils 80.3 % (42.0-75.0); Lymphocytes 6 % (21-51); MDiff Complete? YES; Monocytes 8 % (0-10); Neutrophil 85 % (42-75); Reactive Lymphocytes 1 % (0-10)
[2017-07-10] MEDS ORDERED: Furosemide 40 MG/4 ML VIAL ONE (15:48)
[2017-07-10] MEDS ORDERED: methylPREDNISolone Sod Succ/PF 125 MG/2 ML VIAL ONE (17:10)
[2017-07-10 17:58] VITALS: BMI 25.9
--- NOTE | 2017-07-10 18:04 | RAD ---
PORTABLE CHEST 07/10/17 An AP portable film at 1450 is compared with a 12/05/16 study. Mild cardiomegaly is no different than before. Dense arteriosclerosis is seen in the aorta. An AICD i s in place as usual There is no vascular congestion, edema, or pleural effusion. A little haziness in the lung bases is probably due to overlying tissues and portable technique. No lobar consolidation c ould be confirmed. The lungs are hyperexpanded. IMPRESSION: Cardiomegaly and chronic changes as noted, but no acute thoracic finding. POS: HOME
[2017-07-10] MEDS ORDERED: Benzonatate 100 MG CAP PO PRN (18:26)
[2017-07-10] MEDS ORDERED: Ipratropium Bromide 2.5 ml Neb NEB PRN (18:26)
[2017-07-10] MEDS ORDERED: Albuterol Sulfate 2.5 mg/3 ml Neb NEB PRN (18:26)
--- NOTE | 2017-07-10 20:13 | HP ---
CHIEF COMPLAINT: Hypoxia. HISTORY OF PRESENT ILLNESS: An 87-year-old female with underlying chronic obstructive pulmonary disease and congestive heart failure who presented to the [facility] Emergency Department via her son earlier today with URI symptoms. She was evaluated and subsequently discharged home with a course of p.o. prednisone and Zithromax. She returned back to the Emergency Department this afternoon with her son secondary to being lethargic with a poor appetite today. The patient reports having cough yesterday that has been largely nonproductive with accompanying clear rhinorrhea. She denies having fever, chills or diaphoresis. She denies having respiratory distress. She has taken Mucinex and the first round of Zithromax that had been prescribed earlier today. The son who is with her at present states that he did not feel things were right and thus brought her back to the Emergency Department. Subsequent evaluation revealed the patient to be hypoxic on room air. Her labs were evaluated and shown to have a slight elevation of her BMP at 150.6. The patient does not have home oxygen available to her and notably desatted with exertional activity. Secondary to this and her underlying comorbidities of CHF and COPD, it has been decided to admit this patient for further treatment and arrangements of supplemental home oxygen. Her outside sales consultant is Dr. Holguin and her customer order clerk is Dr. Irby. PAST MEDICAL HISTORY: Diastolic congestive heart failure with last known echocardiogram done on 07/06/2016 showing left ventricular ejection fraction of 50% to 55%, mild to moderate concentric left ventricular hypertrophy, mild mitral regurg and tricuspid regurg, pacemaker lead present and grade 1 diastolic dysfunction. Other past medical history includes hypertension, hyperlipidemia and COPD. PAST SURGICAL HISTORY: AICD placement. SOCIAL HISTORY: The patient lives alone with family members nearby. She is a former smoker. ALLERGIES: No known drug allergies. FAMILY HISTORY: Noncontributory. CURRENT MEDICATIONS: Aspirin 325 mg p.o. daily, Lasix 20 mg every other day, Atrovent p.r.n., albuterol nebs p.r.n., Crestor 40 mg p.o. at bedtime, Pulmicort 0.25 mg nebs b.i.d., Perforomist 20 mcg inhaled b.i.d., lisinopril 2.5 mg p.o. at bedtime, daily multivitamin, Ranexa 500 mg p.o. b.i.d. and spironolactone 25 mg p.o. daily. REVIEW OF SYSTEMS: General: The patient denies fever, chills or diaphoresis. ENT: Complains of clear nasal discharge. Denies sore throat. Cardiovascular: Denies chest pain or palpitations. Respiratory: Complains of cough. Denies shortness of breath Gastrointestinal: Denies abdominal pain, nausea, vomiting , diarrhea or constipation. Genitourinary: Denies dysuria. Musculoskeletal: Denies joint swelling. Dermatologic: Denies rash. Neurologic: Denies headache. PHYSICAL EXAMINATION: VITAL SIGNS: Temperature is 99.7, pulse is 104, respiratory rate is 18, oxygen is 91% on 2 liters and blood pressure is 130/91. GENERAL: The patient is alert and oriented, in no acute distress. EYES: Pupils are equal, round and reactive to light. Extraocular muscles are intact bilaterally. HENT: Head is normocephalic and atraumatic. Moist mucous membranes. NECK: Supple, with no lymphadenopathy. CARDIOVASCULAR: Borderline tachycardia. Normal S1 and S2, 2/6 systolic murmur. RESPIRATORY: Few scattered crackles. No wheezes or increased work of breathing. GASTROINTESTINAL: Abdomen is soft, nontender to palpation, normal bowel sounds. EXTREMITIES: No clubbing, cyanosis or edema. SKIN: Normal with no rash. NEUROLOGIC: Cranial nerves II-XII grossly intact. No focal deficits. Peripheral pulses are 2+ and intact bilaterally. LABORATORY AND IMAGING DATA: White blood cell count is 5.9, hemoglobin and hematocrit is 14.8 and 42.5, platelets are 189. Sodium 138, potassium 3.8, BUN 19, creatinine 0.75 with a GFR 89, glucose is 114, calcium 9.5. AST 26, ALT 22 , normal cardiac enzymes, BNP is 150.6. Chest x-ray showed cardiomegaly and chronic changes, but no acute thoracic finding. ASSESSMENT AND PLAN: 1. Hypoxia. We will provide patient supplemental oxygen here. She meets qualifications for home oxygen and thus will pursue this to have set up available for her at the time of discharge. We will hold the antibiotics here secondary to reassuring chest x-ray and no leukocytosis or fever. We will follow patient's vitals and labs accordingly. 2. Chronic obstructive pulmonary disease. We will resume her usual medications and provide nebulized treatments and resume the patient on 20 mg prednisone p.o. b.i.d. 3. Diastolic congestive heart failure. The patient does not appear to have volume overload by exam, although she did receive IV Lasix in the Emergency Department. Her BNP is minimally elevated at 150.6. We will repeat this tomorrow morning and resume her home p.o. Lasix dosing. 4. Hypertension. The patient is hemodynamically stable. We will resume her home blood pressure medications. 5. Hyperlipidemia. We will resume patient's home statin. 6. Prophylaxis. We will provide famotidine and Lovenox. DISPOSITION: We will likely be able to discharge this patient upon obtainment of home oxygen. She does have [facility] set up. [facility], [place]ATTAN[place]ab[place]
[2017-07-10] MEDS ORDERED: FLU VACC TS2017-18 (>65YR) 0.5 ML SYRINGE IM ONE (21:00)
[2017-07-10] MEDS ORDERED: (Formoterol Fumarate [Perforomist] 20 MCG) NEB SCH (21:00)
[2017-07-10] MEDS ORDERED: Atorvastatin Calcium 40 MG TAB PO SCH (21:00)
[2017-07-10] MEDS ORDERED: Rosuvastatin 10 MG TAB PO SCH (21:15)
[2017-07-10] MEDS: Famotidine 20 MG TAB PO SCH (21:35)
[2017-07-10] MEDS: Lisinopril 5 MG TAB PO SCH (21:39)
[2017-07-10] MEDS: guaiFENesin/DM ER PO SCH (21:40)
[2017-07-10] MEDS: Arformoterol 15 MCG/2 ML NEB NEB SCH (21:41)
[2017-07-10] MEDS: Enoxaparin Sodium 30 MG/0.3 ML SYRINGE SC SCH (21:41)
[2017-07-10] MEDS: Budesonide 0.5 MG/2 ML NEB NEB SCH (21:42)
[2017-07-11] MEDS ORDERED: Ondansetron ODT 4 MG TAB SL PRN (02:46)
[2017-07-11] MEDS ORDERED: Acetaminophen 325 MG TAB PO PRN (02:46)
[2017-07-11] MEDS ORDERED: Ondansetron HCl/PF 4 MG/2 ML Vial IVP PRN (02:46)
[2017-07-11 06:03] LABS: #Lymphocytes 0.5 thou/uL (1.20-3.40); #Monocytes 0.1 thou/uL (0.11-0.59); %Basophils 0.8 % (0.0-1.0); %Lymphocytes 11.1 % (21.0-51.0); %Monocytes 1.7 % (0.0-10.0); %Neutrophils 86.4 % (42.0-75.0); Hemoglobin 12.7 g/dL (12.0-16.0); Mean Corpuscular HGB CONC 33.8 g/dL (32.0-36.0); Mean Corpuscular Hemoglobin 31.8 pg (27.0-31.0); Mean Corpuscular Volume 94.1 fl (81.0-99.0); Mean Platelet Volume 6.9 fL (7.4-10.4); Platelet Count 187 thou/uL (130-400); RBC Distribution Width 12.8 % (11.5-14.5); Red Blood Cell (RBC) Count 4.01 mill/uL (4.20-5.40); White Blood Cell (WBC) Count 4.6 thou/uL (4.8-10.8)
[2017-07-11 06:14] LABS: Anion Gap 14 mmol/L (10-20)
[2017-07-11 06:37] LABS: Bilirubin, Total Less than 0.2 mg/dL (0.2-1.2)
[2017-07-11 06:39] LABS: ALT (SGPT) 19 U/L (8-55); AST (SGOT) 25 U/L (5-34); Albumin 2.7 g/dL (3.4-4.8); Alkaline Phosphatase 87 U/L (40-150); BUN (Urea Nitrogen) 26 mg/dL (9.8-20.1); Calc. Creatinine Clearance 48 mL/min (70-130); Calcium 8.7 mg/dL (7.8-10.44); Carbon Dioxide 27 mmol/L (23-31); Chloride 102 mmol/L (98-107); Estimated GFR-MDRD 82; Globulin 2.5 g/dL (2.4-3.5); Glucose 153 mg/dL (83-110); Potassium 3.6 mmol/L (3.5-5.1); Protein, Total 5.2 g/dL (6.0-8.3); Sodium 139 mmol/L (136-145)
[2017-07-11] MEDS: Furosemide 20 MG TAB PO SCH (09:41)
[2017-07-11] MEDS: Multivit, Therapeutic 1 TAB PO SCH (09:41)
[2017-07-11] MEDS: predniSONE 20 MG TAB PO SCH ×2 (09:41→17:35)
[2017-07-11] MEDS: Aspirin 325 MG TAB PO SCH (09:41)
[2017-07-11] MEDS: Famotidine 20 MG TAB PO SCH ×2 (09:42→20:37)
[2017-07-11] MEDS: Arformoterol 15 MCG/2 ML NEB NEB SCH ×2 (09:43→20:36)
[2017-07-11] MEDS: guaiFENesin/DM ER PO SCH ×2 (09:54→23:44)
[2017-07-11] MEDS: Budesonide 0.5 MG/2 ML NEB NEB SCH ×2 (09:55→20:34)
--- NOTE | 2017-07-11 11:01 | RAD ---
PORTABLE CHEST: DATE: 07/11/17. FINDINGS: An AP portable film at 0655 is compared with a 07/10 study. Cardiomegaly is about the same. There is still some slight congestion of vessels, but this has proba hodan improved slightly in the interval. There are no large effusions. No new infiltrates were seen. An AICD is noted as usual. Arteriosclerotic change is seen in the aorta. IMPRESSION: Mild congestive change, perhaps with slight improvement since yesterday. The overall change is only slight. POS: HOME
[2017-07-11] MEDS: Spironolactone 25 MG TAB PO SCH (12:41)
[2017-07-11] MEDS: Lisinopril 5 MG TAB PO SCH (20:37)
[2017-07-11] MEDS: Enoxaparin Sodium 30 MG/0.3 ML SYRINGE SC SCH (20:38)
[2017-07-11] MEDS ORDERED: Rosuvastatin 10 MG TAB PO SCH (21:00)
[2017-07-12] MEDS: Famotidine 20 MG TAB PO SCH ×2 (08:20→20:40)
[2017-07-12] MEDS: Arformoterol 15 MCG/2 ML NEB NEB SCH ×2 (08:21→20:43)
[2017-07-12] MEDS: Aspirin 325 MG TAB PO SCH (08:21)
[2017-07-12] MEDS: predniSONE 20 MG TAB PO SCH ×2 (08:21→17:49)
[2017-07-12] MEDS: Multivit, Therapeutic 1 TAB PO SCH (08:34)
[2017-07-12] MEDS: guaiFENesin/DM ER PO SCH (08:35)
[2017-07-12] MEDS: Budesonide 0.5 MG/2 ML NEB NEB SCH ×2 (08:50→20:48)
[2017-07-12] MEDS: Spironolactone 25 MG TAB PO SCH (12:06)
[2017-07-12] MEDS: Lisinopril 5 MG TAB PO SCH (20:40)
[2017-07-12] MEDS: guaiFENesin ER 600 MG TAB PO SCH (20:40)
[2017-07-12] MEDS: Enoxaparin Sodium 30 MG/0.3 ML SYRINGE SC SCH (20:40)
[2017-07-12] MEDS ORDERED: Atorvastatin Calcium 40 MG TAB PO SCH (21:00)
[2017-07-13 06:29] VITALS: BP 111/65; TEMP 98.1
[2017-07-13] MEDS: Famotidine 20 MG TAB PO SCH (08:34)
[2017-07-13] MEDS: predniSONE 20 MG TAB PO SCH (08:34)
[2017-07-13] MEDS: guaiFENesin ER 600 MG TAB PO SCH (08:34)
[2017-07-13] MEDS: Furosemide 20 MG TAB PO SCH (08:35)
[2017-07-13] MEDS: Multivit, Therapeutic 1 TAB PO SCH (08:35)
[2017-07-13] MEDS: Aspirin 325 MG TAB PO SCH (08:35)
[2017-07-13] MEDS: Arformoterol 15 MCG/2 ML NEB NEB SCH (08:35)
[2017-07-13] MEDS: Budesonide 0.5 MG/2 ML NEB NEB SCH (08:58)
[2017-07-13] MEDS: Spironolactone 25 MG TAB PO SCH (11:41)
--- NOTE | 2017-07-13 14:59 | DIS ---
DATE OF ADMISSION: 07/10/2017 DATE OF DISCHARGE: 07/13/2017 ADMISSION DIAGNOSES: 1. Hypoxia. 2. Chronic obstructive pulmonary disease exacerbation. 3. Diastolic congestive heart failure. DISCHARGE DIAGNOSES: 1. Hypoxia. 2. Chronic obstructive pulmonary disease exacerbation. 3. Diastolic congestive heart failure. ATTENDING PHYSICIANS: Dr. Grey Forbes with Dr. Mary Merida, taking over care for primary care physician on the date of discharge. PROCEDURES PERFORMED: 1. Chest x-ray from the date of admission showing cardiomegaly and chronic changes, but no acute thoracic findings. 2. Chest x-ray from 07/11/2017 showing mild congestive change, perhaps with slight improvement since yesterday. The overall changes only slight. 3. CBC with white count on admission 5.9, hemoglobin and hematocrit normal, platelets normal. 4. Chemistry profile significant for glucose of 114 and albumin of 3.2. 5. Negative cardiac enzymes. 6. B-type natriuretic peptide on the date of admission 150.6, down to 124.6 on 07/11. HISTORY AND PHYSICAL EXAMINATION: Please see dictated report from admitting physician Dr. Grey Forbes from the date of admission. HOSPITAL COURSE: Ms. Vivas is an 87-year-old -[place] female with past medical history of cardiomyopathy, last having transthoracic echocardiogram in 06/2016 documenting left ventricular ejection fraction of 50% to 55% with grade I diastolic dysfunction, who in the outpatient setting experienced increasing cough and dyspnea and presented to the emergency room on 07/10. She was diagnosed with COPD exacerbation and given a prescription for antibiotic and steroid taper. She was discharged to home. However, later in the evening, it was noted that she had become increasingly more somnolent and her son brought her back to the emergency room and she was admitted for further care. The patient did have some noted hypoxia on room air and was not on home O2. She was given supportive O2, nebulizer treatments, steroid therapy. She did not have a white count or fever, so antibiotics were not continued. She has qualified for home O2 and this has been arranged to be delivered today upon her discharge and she will follow up with me in the clinic in 7 days resuming her prednisone and antibiotic prescription she was given on Thursday. She reports feeling much improved and requesting discharge today. Her lungs are clear to auscultation. DISPOSITION: Discharge to home. CONDITION: Good. MEDICATIONS: 1. Prednisone 20 mg taper. 2. Tessalon 100 mg p.o. t.i.d. p.r.n. cough. 3. Aldactone 25 mg p.o. q. day. 4. Ranexa 500 mg p.o. b.i.d. 5. Multivitamin 1 p.o. q. day. 6. Zestril 2.5 mg p.o. at bedtime. 7. Atrovent 1 inhalation q.6 hours p.r.n. shortness of breath. 8. Lasix 20 mg p.o. every other day. 9. Perforomist 20 mcg inhaled b.i.d. 10. Budesonide 0.25 mg nebulized b.i.d. 11. Lipitor 80 mg p.o. at bedtime. 12. Aspirin 325 mg p.o. q. day. 13. Albuterol 1 unit dose inhaled q.6 hours p.r.n. shortness of breath. 14. Mucinex extended release 600 mg p.o. q.12 hours p.r.n. expectorant. FOLLOWUP: Will be with me, Dr. Mary Merida, in approximately 7 days. MTDD
--- NOTE | 2017-07-21 09:36 | PQF ---
JASSI PAIGE KRISTEL DO [id number] CLINICAL DOCUMENTATION CLARIFICATION FORM: POST DISCHARGE Addendum to original discharge summary date: 07/13/17 Late entry note date: 07/25/17 DATE: 07/21/2017 ATTN: DR. PAN / DR. BUCKLEY Please exercise your independent, professional judgment in responding to the clarification form. Clinical indicators are provided on the bottom of this form for your review Please check appropriate box(s): [ ] Acute Respiratory Failure: [ ] with Hypoxia[ ] with Hypercapnia [ x ] Acute On Chronic Respiratory Failure: [ x ] with Hypoxia [ x ] with Hypercapnia [ x ] Acute Respiratory Failure due to: (etiology) copd [ ] Acute Respiratory Insufficiency following (if applicable): [ ] trauma [ ] surgery [ ] Chronic Respiratory Failure only [ ] with Hypoxia [ ] with Hypercapnia [ ] Hypoxia [ ] Other diagnosis [ ] Unable to determine In addition, please specify: Present on Admission (POA): [ ] Yes [ ] No [ ] Unable to determine For continuity of documentation, please document condition throughout progress notes and discharge summary. Thank You. CLINICAL INDICATORS - SIGNS / SYMPTOMS / LABS: VITALS: PULSE: 104, RESP: 18, OXYGEN 91% ON 2L, BP: 130/91 ER: BREATH SOUNDS DIMINISHED, SIGNS OF DISTRESS, MILD DISTRESS H&P: HYPOXIA ON ROOM AIR - PROVIDE SUPPLEMENTAL OXYGEN CHEST X-RAY - SHOWED CARDIOMEGALY & CHRONIC CHANGES PN: HYPOXIA - ON SUPPLEMENTAL O2 DS: HYPOXIA COPD EXACERBATION DIASTOLIC CHF RISK FACTORS: COPD exacerbation CHF TREATMENTS: Oxygen NEBULIZER TREATMENTS STEROID THERAPY (This form is maintained as a part of the permanent medical record) 2014 [employer]. All Rights Reserved Leonardo Robbins, CCS, COMMERCIAL COLLECTIONS DRIVER-H [email or web address] [phone] ALYSSA
== END 2017-07-13 14:30 | disposition home health service (06) | DRG 291 ==
LOC: BURERS 14:33 → BURMED 17:11
PROVIDERS: ADMIT Family Medicine; ATTEND Family Medicine
DX: I11.0 Hypertensive heart disease with heart failure (principal); J96.01 Acute respiratory failure with hypoxia; J96.02 Acute respiratory failure with hypercapnia; J44.1 Chronic obstructive pulmonary disease with (acute) exacerbation; I50.32 Chronic diastolic (congestive) heart failure; Z95.810 Presence of automatic (implantable) cardiac defibrillator; E78.5 Hyperlipidemia, unspecified; Z87.891 Personal history of nicotine dependence; Z79.82 Long term (current) use of aspirin
CPT/HCPCS: 36415; 71045; 80053; 82553; 83880; 84484; 85025; 93005; 94640; 96374; 96375; 99283; J1650; J1940; J2930; J7506; J7620; J7626

== ENCOUNTER 2017-07-24 07:38 | Inpatient (IN) | payer MEDICARE ==
[2017-07-24] MEDS ORDERED: Acetaminophen 325 MG TAB PO PRN (08:00)
[2017-07-24] MEDS ORDERED: D5 1/2 NS w/20 mEq KCL 1,000 ML IV SCH (08:00)
[2017-07-24] MEDS ORDERED: Ondansetron HCl/PF 4 MG/2 ML Vial IVP PRN (08:00)
[2017-07-24] MEDS ORDERED: Ondansetron ODT 4 MG TAB SL PRN (08:00)
[2017-07-24 08:13] LABS: #Basophils 0.1 thou/uL (0.0-0.2); #Eosinphils 0.1 thou/uL (0.0-0.7); #Lymphocytes 1.6 thou/uL (1.20-3.40); #Monocytes 0.8 thou/uL (0.11-0.59); #Neutrophils 6.6 thou/uL (1.40-6.50); %Lymphocytes 17.4 % (21.0-51.0); %Neutrophils 71.6 % (42.0-75.0); Hemoglobin 14.7 g/dL (12.0-16.0); Mean Corpuscular Hemoglobin 31.9 pg (27.0-31.0); Mean Corpuscular Volume 96.6 fl (81.0-99.0); Mean Platelet Volume 7.8 fL (7.4-10.4); Platelet Count 215 thou/uL (130-400); White Blood Cell (WBC) Count 9.3 thou/uL (4.8-10.8)
[2017-07-24 08:30] LABS: Bilirubin Small (Negative); Blood, Urine Large (Negative); Clarity Slightly Cloudy (Clear); Glucose, Urine (Dipstick) Negative (Negative); Leukocyte Trace (Negative); Nitrite Negative (Negative); Protein, Urine (Dipstick) > or equal to 300 mg/dL (Neg-Trace)
[2017-07-24 08:31] LABS: ALT (SGPT) 27 U/L (8-55); AST (SGOT) 27 U/L (5-34); Alkaline Phosphatase 94 U/L (40-150); Anion Gap 15 mmol/L (10-20); BUN (Urea Nitrogen) 21 mg/dL (9.8-20.1); Bilirubin, Total 0.4 mg/dL (0.2-1.2); CKMB 2.4 ng/mL (0-6.6); Calc. Creatinine Clearance 0 mL/min (70-130); Calcium 9.7 mg/dL (7.8-10.44); Carbon Dioxide 36 mmol/L (23-31); Estimated GFR-MDRD 64; Globulin 2.9 g/dL (2.4-3.5); Glucose 113 mg/dL (83-110); Protein, Total 5.9 g/dL (6.0-8.3); Troponin I 0.016 ng/mL (< 0.028)
[2017-07-24 08:35] LABS: Chloride 96 mmol/L (98-107); Potassium 3.3 mmol/L (3.5-5.1); Sodium 144 mmol/L (136-145)
[2017-07-24 08:50] LABS: Bacteria/HPF 3+ HPF (None Seen); Crystals/HPF 1+ AMORPH PHOS HPF (Negative); Renal Epithelial 0-3 HPF (0-3); Squamous Epithelial 0-3 HPF (0-3); Transitional Epithelial 0-3 HPF (0-3)
[2017-07-24] MEDS ORDERED: Oseltamivir 75 MG CAP ONE ×2 (08:57→20:14)
[2017-07-24] MEDS ORDERED: Sulfameth/Trimethoprim DS 800-160mg TAB ONE (08:57)
[2017-07-24] MEDS ORDERED: Potassium Chloride 20 MEQ TAB ONE (09:33)
[2017-07-24] MEDS ORDERED: cefTRIAXone\\ROCEPHIN 1 GM VIAL ONE (09:33)
[2017-07-24] MEDS ORDERED: PROVENTIL INHALER 6.7 G (200 INHALATIONS) INH PRN (12:58)
[2017-07-24] MEDS ORDERED: Prevnar 13-Val Conj/PF 0.5 ML SYRINGE IM ONE (14:00)
[2017-07-24] MEDS ORDERED: FLU VACC TS2017-18 (>65YR) 0.5 ML SYRINGE IM ONE (14:00)
--- NOTE | 2017-07-24 16:53 | RAD ---
PORTABLE CHEST 07/24/17 Comparison is made with the 07/11 study. The heart is moderately enlarged but no different than before. The upper lobe vessels are not congest ed, nor are there any pleural effusions. Dense arteriosclerosis is seen in the aorta. An AICD is in p lace. The left lung is clear within the limitations of this portable study. There is some haziness around t he right hilum. This has been true on prior films. Currently, this area is not seen well enough to be sure if there is any pathology here or not. I suspect the changes are actually all chronic. If she c ontinues with symptoms, however, followup chest x-rays and maybe even a CT could be needed to resolve it. IMPRESSION: 1. Cardiomegaly and arteriosclerosis. 2. Some haziness around the right hilum but the area is indeterminate on this chest x-ray. Consi bradley at least chest x-ray followup on her. Code T POS: HOME
[2017-07-24] MEDS: Budesonide 0.5 MG/2 ML NEB NEB SCH (18:38)
[2017-07-24] MEDS: Arformoterol 15 MCG/2 ML NEB NEB SCH (18:48)
[2017-07-24] MEDS: Lisinopril 5 MG TAB PO SCH (20:33)
[2017-07-24] MEDS: Rosuvastatin 10 MG TAB PO SCH (20:33)
[2017-07-24] MEDS: Oseltamivir 75 MG CAP PO SCH (20:34)
[2017-07-25] MEDS ORDERED: Ondansetron ODT 4 MG TAB SL PRN (00:06)
[2017-07-25] MEDS ORDERED: Ondansetron HCl/PF 4 MG/2 ML Vial SLOW IVP PRN (00:06)
[2017-07-25] MEDS ORDERED: Promethazine HCl 25 MG SUPP PR PRN (00:07)
[2017-07-25] MEDS ORDERED: Acetaminophen 325 MG TAB PO PRN (00:08)
[2017-07-25] MEDS: Arformoterol 15 MCG/2 ML NEB NEB SCH ×2 (06:17→18:18)
[2017-07-25] MEDS: Budesonide 0.5 MG/2 ML NEB NEB SCH ×2 (06:18→18:29)
[2017-07-25 06:53] LABS: Anion Gap 14 mmol/L (10-20); BUN (Urea Nitrogen) 15 mg/dL (9.8-20.1); Calc. Creatinine Clearance 44 mL/min (70-130); Calcium 8.8 mg/dL (7.8-10.44); Carbon Dioxide 35 mmol/L (23-31); Chloride 98 mmol/L (98-107); Estimated GFR-MDRD 73; Glucose 108 mg/dL (83-110); Potassium 4.3 mmol/L (3.5-5.1); Sodium 143 mmol/L (136-145)
[2017-07-25 07:16] LABS: %Eosinophils 0.8 % (0.0-10.0); %Lymphocytes 10.5 % (21.0-51.0); %Monocytes 8.8 % (0.0-10.0); %Neutrophils 78.9 % (42.0-75.0); Hemoglobin 13.5 g/dL (12.0-16.0); Manual Diff?? NO; Mean Corpuscular HGB CONC 32.2 g/dL (32.0-36.0); Mean Corpuscular Hemoglobin 31.4 pg (27.0-31.0); Mean Corpuscular Volume 97.4 fL (81.0-99.0); Mean Platelet Volume 8.8 fL (7.4-10.4); Platelet Count 178 thou/uL (130-400); RBC Distribution Width 12.8 % (11.5-14.5); Red Blood Cell (RBC) Count 4.29 mill/uL (4.20-5.40); White Blood Cell (WBC) Count 11.1 thou/uL (4.8-10.8)
[2017-07-25 07:17] LABS: #Basophils 0.1 thou/uL (0.0-0.2); #Eosinphils 0.1 thou/uL (0.0-0.7); #Neutrophils 8.8 thou/uL (1.40-6.50); MDiff Complete? YES
[2017-07-25] MEDS ORDERED: Oseltamivir 75 MG CAP ONE ×2 (08:20→20:11)
[2017-07-25] MEDS ORDERED: cefTRIAXone\\ROCEPHIN 1 GM in Sodium Chloride 0.9% 100 ML IVPB SCH (09:00)
[2017-07-25] MEDS ORDERED: Sodium Chloride 0.9% 500 ML IV ONE (09:00)
[2017-07-25] MEDS ORDERED: Iopamidol 370 76% 100 ML VIAL ONE (09:00)
[2017-07-25] MEDS: Multivit, Therapeutic 1 TAB PO SCH (09:33)
[2017-07-25] MEDS: Potassium Chloride 20 MEQ TAB PO SCH (09:33)
[2017-07-25] MEDS: Loratadine 10 MG TAB PO SCH (09:34)
[2017-07-25] MEDS: Aspirin 325 MG TAB PO SCH (09:34)
[2017-07-25] MEDS: Oseltamivir 75 MG CAP PO SCH ×2 (09:34→20:46)
[2017-07-25] MEDS: cefTRIAXone\\ROCEPHIN 1 GM VIAL SLOW IVP SCH (10:27)
--- NOTE | 2017-07-25 10:42 | RAD ---
PORTABLE CHEST: DATE: 07/25/17. FINDINGS: An AP portable film at 0843 is compared with the . There is a little less streaking in the right lung around the right hilum than there was previously. The left lung is relatively clear. Th e vasculature may be marginally more prominent today than before, however. The cardiac size is the s alec. There is still general prominence of the right hilum. IMPRESSION: 1. Mild improvement of streaking around the right hilum since yesterday. 2. Vessels are a little more prominent today than yesterday which could signify some borderline rachna estion. 3. There continues to be some right hilar prominence. It might be well to do an elective CT on the patient to before sure there is no pathology there. POS: HOME
[2017-07-25] MEDS: Spironolactone 25 MG TAB PO SCH (12:58)
--- NOTE | 2017-07-25 13:16 | CT ---
CT OF THE CHEST WITH CONTRAST: DATE: 07/25/17. FINDINGS: Spiral CT of the thorax was done in response to a persistently abnormal chest x-ray, particularly in the area of the right hilum. Axial slices were acquired after giving IV contrast. Coronal reconstru ctions were then done. There is a rounded area in the right hilum that appears to be atelectatic lung as it has air bronchog fito running into it. One cannot rule out endobronchial obstruction as a cause, but no other patholo gy was seen here. Elsewhere, there are a few areas of streaking throughout the lungs that are scarri ng or atelectasis, particularly in the lingula of the left upper lobe. There are no effusions. The mediastinum shows severe arteriosclerotic change in the aorta and coronary vessels. The patient' s main pulmonary artery is rather large, measuring 4 cm in diameter. This sometimes can signify pulm onary arterial hypertension, though the more peripheral pulmonary arteries are not large. The heart is enlarged. There is no mediastinal mass or significant adenopathy. There is a mixed density mass in the left lobe of the thyroid that measures about 2 cm in size. Scans into the upper abdomen showed a few subcentimeter cysts in the kidneys and liver. No gross mas ses in the upper abdomen were apparent. The patient's spleen is rather small. IMPRESSION: 1. Area of rounded atelectatic lung in the right middle lobe with air bronchograms in it. This appe ars to be the cause of the right hilar prominence. This easily could be infected. There could be an endobronchial lesion (even something as simple as a mucus plug) as a cause. 2. Some scarring or atelectasis scattered throughout the lungs elsewhere, particularly in the lingul a of the left upper lobe. 3. A 2 cm left thyroid mass, mixed density. 4. Small hepatic and renal cysts. 5. Large main pulmonary artery (4 cm wide). 6. Cardiomegaly and arteriosclerotic changes throughout. POS: HOME
--- NOTE | 2017-07-25 16:18 | HP ---
Late entry dictation for 07/24/2017 at 12:30 p.m. CHIEF COMPLAINT: Malaise. HISTORY OF PRESENT ILLNESS: Ms. Vivas is an 87-year-old -[place] female with a past medical history of COPD and diastolic congestive heart failure, former smoker, who presented to the emergency room early this a.m. with complaint of malaise/fatigue. The patient was admitted a little over a week ago with complaint of malaise and shortness of breath. She was hospitalized at this facility for acute on chronic respiratory failure with hypoxia and hypercapnia, presumed secondary to COPD and chronic diastolic CHF. She was discharged home on oxygen, prednisone 20 mg taper, and extended release Mucinex. She felt improved at the time of her discharge, but admits to being noncompliant with O2 during activity at home. She saw me in the clinic 07/20 for followup and seemed to be doing well. Subsequently, she saw her vice president digital strategist yesterday and seemed to be doing well at that time. Today, she is experiencing mild dyspnea and cough productive of clear sputum. Reports compliance with her medication regimen. In the ER, found to have a positive influenza A and B testing as well as urinalysis suspicious for infection as well as hypokalemia, and I was asked to admit the patient due to her comorbidities. PAST MEDICAL HISTORY: 1. Diastolic congestive heart failure with most recent echocardiogram in 2016, noting a left ventricular ejection fraction of 50%-55% with grade I diastolic dysfunction. 2. COPD followed by Dr. Holguin with Pulmonology, now O2 dependent, former smoker. 3. Hypertension. 4. Carotid stenosis. 5. Hyperlipidemia. PAST SURGICAL HISTORY: 1. Heart catheterization. 2. Hernia repair. 3. Defibrillator placement, 05/2013. FAMILY HISTORY: Father from dementia. Mother is . SOCIAL HISTORY: Former smoker, but quit approximately 6 years ago. No alcohol or illicit drug use. ALLERGIES: Benzonatate causes dizziness, otherwise no known drug allergies. CURRENT MEDICATIONS: 1. Albuterol nebs 1 inhalation q.4 h. p.r.n. 2. Rosuvastatin 40 mg p.o. at bedtime. 3. Loratadine 10 mg p.o. daily. 4. Aspirin 325 mg p.o. daily. 5. Lasix 20 mg p.o. every other day. 6. Perforomist 20 mcg inhaled b.i.d. 7. Pulmicort 0.25 mg b.i.d. 8. Ranexa 500 mg p.o. b.i.d. 9. Multivitamin 1 p.o. daily. 10. Zestril 2.5 mg p.o. at bedtime. 11. Spironolactone 25 mg p.o. daily. REVIEW OF SYSTEMS: GENERAL: Denies fever, chills. Positive fatigue/myalgias. HEENT: Chronic clear intermittent rhinorrhea. Minor postnasal drip. Denies ear pain or sore throat. RESPIRATORY: Minimally productive cough of clear sputum. No hemoptysis. Chronic dyspnea and dyspnea on exertion. CARDIOVASCULAR: Denies chest pain, orthopnea, PND. GASTROINTESTINAL: Denies nausea, vomiting, diarrhea, constipation, abdominal pain. GENITOURINARY: Denies dysuria, frequency, urgency, malodorous urine. LYMPHATICS: Denies edema. HEMATOLOGIC: Denies bleeding. NEUROLOGIC: Denies focal weakness, paresthesias, numbness, confusion, headaches , blurred vision, speech change. PSYCHIATRIC: Denies anxiety or depression. PHYSICAL EXAMINATION: VITAL SIGNS: Temperature 98.8, pulse 96, respirations 20, 99% O2 sat on 3 liters per minute, blood pressure 130/86. GENERAL: Well-developed, thin -[place] female, in no acute distress. Alert and oriented x3, nasal cannula in place. HEENT: Normocephalic, atraumatic. Pupils equal, round, and reactive to light and accommodation. Extraocular muscles intact. Nares are patent without discharge. Tongue protrudes in the midline. NECK: Supple, without lymphadenopathy, thyromegaly or JVD. HEART: Regular rate and rhythm with distant heart tones. No murmurs, clicks, rubs, or gallops. LUNGS: Diminished air entry throughout with bilateral basilar expiratory wheezing. No crackles. ABDOMEN: Positive bowel sounds in all four quadrants, soft, nontender, nondistended, no masses, guarding, or rebound tenderness. EXTREMITIES: No cyanosis, clubbing or edema. NEURO: Cranial nerves II-XII grossly intact. No focal deficits. LABORATORY DATA: White count 9.3 with 71% neutrophils, 17% lymphocytes, hemoglobin 14.7, hematocrit 44.5, platelets 215. Sodium 144, potassium 3.3, chloride 96, CO2 of 36, BUN 21, creatinine 0.99, glucose 113, lactic acid 0.8, calcium 9.7, total bilirubin 0.4, normal LFTs, CK-MB 2.4, troponin I 0.016, BNP 64, albumin 3. Urinalysis significant for greater than or equal to 300 protein , large blood, small bilirubin, 2.0 urobilinogen, trace leukocyte esterase, 4-6 rbc, 11-20 wbc, 3+ bacteria. IMAGING: Chest x-ray: Cardiomegaly, arteriosclerosis, haziness around the right hilum, but indeterminate. Influenza A and B positive. ASSESSMENT AND PLAN: 1. Influenza A/influenza B. The patient has been placed on Tamiflu with anti- pyretics and anti-emetics p.r.n. She was given IV fluids in the ED. We will follow clinically. 2. Hypokalemia. The patient was given potassium in the ED. We will recheck basic metabolic profile in the a.m. 3. Acute cystitis with hematuria. Blood cultures x2, urine culture. Rocephin was given in the ED. We will continue that. Repeat CBC in the a.m. 4. Diastolic heart failure, chronic, present on admission. We will saline lock intravenous fluids for now. Continue home regimen. Monitor closely for signs of fluid overload. 5. Right hilar prominence. Per x-ray, indeterminate. We will repeat chest x- ray in the a.m. 6. Chronic hypercapnic and hypoxic respiratory failure due to chronic obstructive pulmonary disease, present on admission. We will order DuoNebs, no evidence of exacerbation at present with minimal wheezing on exam and recent treatment. Continue home nebulizer regimen. 7. Hyperlipidemia. Will continue statin therapy. 8. Prophylaxis. We will place SCDs and start a PPI. CODE STATUS: FULL CODE desired. MTDD
[2017-07-25] MEDS: Rosuvastatin 10 MG TAB PO SCH (20:45)
[2017-07-25] MEDS: Lisinopril 5 MG TAB PO SCH (20:46)
[2017-07-26] MEDS: Arformoterol 15 MCG/2 ML NEB NEB SCH ×2 (06:09→18:25)
[2017-07-26] MEDS: Budesonide 0.5 MG/2 ML NEB NEB SCH ×2 (06:11→18:31)
[2017-07-26] MEDS: cefTRIAXone\\ROCEPHIN 1 GM VIAL SLOW IVP SCH (08:41)
[2017-07-26] MEDS: Sterile Water 10 ML VIAL IVP SCH (08:41)
[2017-07-26] MEDS: Loratadine 10 MG TAB PO SCH (08:42)
[2017-07-26] MEDS: Aspirin 325 MG TAB PO SCH (08:43)
[2017-07-26] MEDS: Multivit, Therapeutic 1 TAB PO SCH (08:43)
[2017-07-26] MEDS: Famotidine 20 MG TAB PO SCH (08:43)
[2017-07-26] MEDS: Potassium Chloride 20 MEQ TAB PO SCH (08:43)
[2017-07-26] MEDS ORDERED: Furosemide 20 MG TAB PO SCH (09:00)
[2017-07-26] MEDS ORDERED: Oseltamivir 75 MG CAP ONE ×2 (09:06→21:02)
[2017-07-26] MEDS: Oseltamivir 75 MG CAP PO SCH ×2 (09:14→21:03)
[2017-07-26 10:49] LABS: #Basophils 0.1 thou/uL (0.0-0.2); #Eosinphils 0.1 thou/uL (0.0-0.7); #Lymphocytes 1.4 thou/uL (1.20-3.40); #Monocytes 1.1 thou/uL (0.11-0.59); #Neutrophils 7.5 thou/uL (1.40-6.50); %Basophils 0.9 % (0.0-1.0); %Eosinophils 0.8 % (0.0-10.0); %Lymphocytes 13.8 % (21.0-51.0); %Monocytes 10.5 % (0.0-10.0); %Neutrophils 74.1 % (42.0-75.0); Hemoglobin 13.4 g/dL (12.0-16.0); Mean Corpuscular HGB CONC 33.8 g/dL (32.0-36.0); Mean Corpuscular Hemoglobin 32.7 pg (27.0-31.0); Mean Corpuscular Volume 96.5 fl (81.0-99.0); Platelet Count 165 thou/uL (130-400); RBC Distribution Width 12.8 % (11.5-14.5); Red Blood Cell (RBC) Count 4.11 mill/uL (4.20-5.40); White Blood Cell (WBC) Count 10.1 thou/uL (4.8-10.8)
[2017-07-26 11:01] LABS: Anion Gap 12 mmol/L (10-20); BUN (Urea Nitrogen) 15 mg/dL (9.8-20.1); Calc. Creatinine Clearance 35 mL/min (70-130); Calcium 8.6 mg/dL (7.8-10.44); Carbon Dioxide 31 mmol/L (23-31); Chloride 99 mmol/L (98-107); Estimated GFR-MDRD 57; Glucose 132 mg/dL (83-110); Potassium 3.9 mmol/L (3.5-5.1); Sodium 138 mmol/L (136-145)
[2017-07-26] MEDS ORDERED: Promethazine 25 MG TAB PO PRN (12:54)
[2017-07-26] MEDS: Sodium Chloride 0.9% 1,000 ML IV SCH (13:35)
[2017-07-26] MEDS: Spironolactone 25 MG TAB PO SCH (13:43)
[2017-07-26] MEDS: Rosuvastatin 10 MG TAB PO SCH (20:55)
[2017-07-26] MEDS: guaiFENesin ER 600 MG TAB PO SCH (20:55)
[2017-07-26] MEDS: Lisinopril 5 MG TAB PO SCH (20:56)
[2017-07-27] MEDS: Sodium Chloride 0.9% 1,000 ML IV SCH (03:29)
[2017-07-27 04:21] VITALS: BMI 25.2
[2017-07-27] MEDS: Arformoterol 15 MCG/2 ML NEB NEB SCH (06:14)
[2017-07-27] MEDS: Budesonide 0.5 MG/2 ML NEB NEB SCH (06:23)
[2017-07-27 06:34] LABS: #Basophils 0.1 thou/uL (0.0-0.2); #Eosinphils 0.1 thou/uL (0.0-0.7); #Lymphocytes 0.8 thou/uL (1.20-3.40); #Monocytes 1.1 thou/uL (0.11-0.59); #Neutrophils 11.3 thou/uL (1.40-6.50); %Basophils 0.7 % (0.0-1.0); %Eosinophils 0.6 % (0.0-10.0); %Lymphocytes 6.1 % (21.0-51.0); %Monocytes 8.4 % (0.0-10.0); %Neutrophils 84.2 % (42.0-75.0); Hemoglobin 13.2 g/dL (12.0-16.0); Mean Corpuscular HGB CONC 33.4 g/dL (32.0-36.0); Mean Corpuscular Hemoglobin 32.4 pg (27.0-31.0); Mean Corpuscular Volume 96.9 fl (81.0-99.0); Mean Platelet Volume 8.5 fL (7.4-10.4); Platelet Count 127 thou/uL (130-400); RBC Distribution Width 12.8 % (11.5-14.5); Red Blood Cell (RBC) Count 4.07 mill/uL (4.20-5.40); White Blood Cell (WBC) Count 13.4 thou/uL (4.8-10.8)
[2017-07-27 06:45] LABS: Anion Gap 12 mmol/L (10-20); BUN (Urea Nitrogen) 13 mg/dL (9.8-20.1); Calc. Creatinine Clearance 36 mL/min (70-130); Calcium 8.2 mg/dL (7.8-10.44); Carbon Dioxide 24 mmol/L (23-31); Chloride 107 mmol/L (98-107); Estimated GFR-MDRD 56; Glucose 107 mg/dL (83-110); Sodium 139 mmol/L (136-145)
[2017-07-27] MEDS: Multivit, Therapeutic 1 TAB PO SCH (08:56)
[2017-07-27] MEDS: Aspirin 325 MG TAB PO SCH (08:56)
[2017-07-27] MEDS: Loratadine 10 MG TAB PO SCH (08:56)
[2017-07-27] MEDS: guaiFENesin ER 600 MG TAB PO SCH (08:56)
[2017-07-27] MEDS: Famotidine 20 MG TAB PO SCH (08:56)
[2017-07-27] MEDS: Sterile Water 10 ML VIAL IVP SCH (10:57)
[2017-07-27] MEDS: Oseltamivir 75 MG CAP PO SCH (13:48)
--- NOTE | 2017-07-27 14:12 | DIS ---
DATE OF ADMISSION: 07/24/2017 DATE OF DISCHARGE: 07/27/2017 ADMISSION DIAGNOSES: 1. Influenza A. 2. Influenza B. 3. Acute cystitis with hematuria 4. Hypokalemia. 5. Chronic diastolic heart failure, present on admission. 6. Right hilar prominence. 7. Chronic hypercapnic and hypoxic respiratory failure due to chronic obstructive pulmonary disease, present on admission. 8. Hyperlipidemia. DISCHARGE DIAGNOSES: 1. Influenza A. 2. Influenza B. 3. Acute cystitis with hematuria 4. Hypokalemia 5. Chronic diastolic heart failure, present on admission. 6. Right middle lobe atelectasis. 7. Chronic hypercapnic and hypoxic respiratory failure due to chronic obstructive pulmonary disease, present on admission. 8. Hyperlipidemia. 9. Hyperlipidemia 10. Thyroid mass. ATTENDING PHYSICIAN: Dr. Mary Merida. PROCEDURES PERFORMED: 1. Blood cultures x2 from the date of admission negative for growth at 48 hours. 2. Influenza A and B positive. 3. Urine culture performed from the date of admission showing 10-25,000 mixed skin and enteric dell. 4. Chest x-ray from the date of admission showing cardiomegaly and arteriosclerosis, haziness around the right hilum, indeterminate. 5. Chest x-ray on 07/25/2017 showing mild improvement of streaking around the right hilum since yesterday. Vessels are little more prominent today than yesterday. Continue to be some right hilar prominence. 6. CT scan of the chest performed on 06/24/2017 showing an area of rounded atelectatic lung and the right middle lobe with air bronchograms in it. This appears to be the cause of the right hilar prominence. This easily could be infected. There could be a bronchial lesion (even something as simple as mucus plug) as a cause. Some scarring or atelectasis scattered throughout the lungs elsewhere, particularly in the lingula of the left upper lobe, a 2 cm left thyroid mass that is mixed density. Small hepatic and renal cyst. Large main pulmonary artery. Cardiomegaly and arteriosclerotic changes. HISTORY AND PHYSICAL EXAMINATION: Please see dictated report from the date of admission. HOSPITAL COURSE: Ms. Vivas is an 87-year-old -[place]inames[place] female with past medical history of COPD, chronic cardiomyopathy, status post AICD, and chronic diastolic heart failure who presented to the Emergency Department on the date of admission with worsening dyspnea on exertion and malaise. She was found to be positive for both influenza A and B and started on Tamiflu. In addition, her urinalysis was suspicious for infection. Blood and urine cultures were performed and she was placed on Rocephin empirically. She felt a little worse in the first 24 hours while we were waiting on the urine culture, so I added low dose Levaquin. Due to the presence of right hilar prominence, the patient had a CT scan of the chest. Infection could not be completely ruled out in the area of atelectasis so the Levaquin dose was increased to cover for lung infection. She was given neb treatments, and her shortness of breath improved. She also received some fluid resuscitation during her hospitalization. When the urine culture results were back, the Rocephin was discontinued. The hypokalemia was corrected during this hospitalization and it is 4.0 on the date of discharge. The patient incidentally found to have a thyroid mass with CT. We discussed further workup of this that can be obtained as an outpatient with probable ENT referral. She likely would not be a good candidate secondary to her pulmonary and cardiovascular status. The patient has a history of chronic diastolic heart failure. It did not appear that she had any exacerbation of this during the hospitalization. Her meds were continued throughout her hospitalization with the exception of the Aldactone due to some low blood pressures early in the morning. It looks like this has been going on as an outpatient as well per the son's log that he brought in for my review. Today on examination, the patient is feeling much better. She felt like she did well with her physical therapy evaluation and would benefit from therapy for deconditioning in our swing bed unit. She denies shortness of breath. Her dyspnea on exertion is improved from admission. The malaise is improved. She has a minimally productive cough and is on Mucinex for that. The patient will be transferred to our swing bed unit to complete her course of Tamiflu and IV Levaquin. We will get PT and OT evaluation. DISPOSITION: Transfer to swing bed. CONDITION: Good. MEDICATIONS: 1. Brovana 15 mcg nebulized b.i.d. 2. Aspirin 325 mg p.o. q. day. 3. Pulmicort 0.25 mg nebulized b.i.d. 4. Pepcid 20 mg p.o. q. day. 5. Lasix 20 mg p.o. every other day. 6. Mucinex ER 1200 mg p.o. q.12 hours. 7. Levaquin 500 mg IV q.24 hours. 8. Zestril 2.5 mg p.o. at bedtime. 9. Claritin 10 mg p.o. q. day. 10. Multivitamin 1 p.o. q. day. 11. Tamiflu 75 mg p.o. b.i.d. 12. Ranexa 500 mg p.o. b.i.d. 13. Crestor 40 mg p.o. at bedtime. 14. Sodium chloride fluid at 70 mL per hour. 15. Tylenol 650 mg p.o. q.4 hours p.r.n. pain or fever. 16. DuoNeb 3 mL nebulized q.i.d. p.r.n. 17. Promethazine suppositories 25 mg per rectum q.6 hours p.r.n. nausea. 18. Promethazine 25 mg p.o. q.6 hours p.r.n. nausea. FOLLOWUP: Follow up to be arranged per swing bed disposition. MTDD
[2017-07-27 16:26] VITALS: TEMP 97.8
[2017-07-27 16:27] VITALS: BP 104/60
== END 2017-07-27 16:27 | disposition swing bed (61) | DRG 194 ==
LOC: BURERS 07:38 → BURMED 08:55
PROVIDERS: ADMIT Family Medicine; ATTEND Family Medicine
DX: J10.1 Influenza due to other identified influenza virus with other respiratory manifestations (principal); J96.11 Chronic respiratory failure with hypoxia; J96.12 Chronic respiratory failure with hypercapnia; I95.9 Hypotension, unspecified; I42.9 Cardiomyopathy, unspecified; I11.0 Hypertensive heart disease with heart failure; I50.32 Chronic diastolic (congestive) heart failure; I65.29 Occlusion and stenosis of unspecified carotid artery; N30.01 Acute cystitis with hematuria; J98.11 Atelectasis; R53.81 Other malaise; Z99.81 Dependence on supplemental oxygen; J44.9 Chronic obstructive pulmonary disease, unspecified; Z87.891 Personal history of nicotine dependence; E87.6 Hypokalemia; E78.5 Hyperlipidemia, unspecified; Z95.810 Presence of automatic (implantable) cardiac defibrillator; Z79.82 Long term (current) use of aspirin; Z79.51 Long term (current) use of inhaled steroids
CPT/HCPCS: 36415; 71045; 71260; 80048; 80053; 81003; 81015; 82553; 83605; 83880; 84484; 85025; 87040; 87086; 87804; 94640; 94760; 96365; 96375; A4216; J0696; J1956; J7620; J7626; Q0162

== ENCOUNTER 2017-07-27 16:27 | Inpatient (IN) | payer MEDICARE ==
[2017-07-27] MEDS ORDERED: PROVENTIL INHALER 6.7 G (200 INHALATIONS) INH PRN (17:08)
[2017-07-27] MEDS ORDERED: Acetaminophen 325 MG TAB PO PRN (17:09)
[2017-07-27] MEDS ORDERED: Promethazine HCl 25 MG SUPP PR PRN (17:13)
[2017-07-27] MEDS ORDERED: Promethazine 25 MG TAB PO PRN (17:13)
[2017-07-27] MEDS ORDERED: Lorazepam 0.5 MG TAB PO PRN (18:14)
[2017-07-27] MEDS: Sodium Chloride 0.9% 1,000 ML IV SCH (19:20)
[2017-07-27] MEDS: Budesonide 0.5 MG/2 ML NEB NEB SCH (19:21)
[2017-07-27] MEDS: Arformoterol 15 MCG/2 ML NEB NEB SCH (19:24)
[2017-07-27] MEDS ORDERED: Oseltamivir 75 MG CAP ONE (20:34)
[2017-07-27] MEDS: Oseltamivir 75 MG CAP PO SCH (20:44)
[2017-07-27] MEDS: Rosuvastatin 10 MG TAB PO SCH (20:45)
[2017-07-27] MEDS: guaiFENesin ER 600 MG TAB PO SCH (20:46)
[2017-07-27] MEDS ORDERED: Lisinopril 5 MG TAB PO SCH (21:00)
[2017-07-28] MEDS: Budesonide 0.5 MG/2 ML NEB NEB SCH ×2 (06:01→18:43)
[2017-07-28] MEDS: Arformoterol 15 MCG/2 ML NEB NEB SCH ×2 (06:01→18:42)
[2017-07-28] MEDS ORDERED: FLU VACC TS2017-18 (>65YR) 0.5 ML SYRINGE IM ONE (09:00)
[2017-07-28 09:27] LABS: Hemoglobin 14.8 g/dL (12.0-16.0); Mean Corpuscular HGB CONC 32.9 g/dL (32.0-36.0); Mean Corpuscular Hemoglobin 32.5 pg (27.0-31.0); Mean Corpuscular Volume 98.7 fl (81.0-99.0); Mean Platelet Volume 10.2 fL (7.4-10.4); Platelet Count 127 thou/uL (130-400); RBC Distribution Width 13.1 % (11.5-14.5); Red Blood Cell (RBC) Count 4.55 mill/uL (4.20-5.40); White Blood Cell (WBC) Count 14.1 thou/uL (4.8-10.8)
[2017-07-28 09:31] LABS: Anion Gap 16 mmol/L (10-20); BUN (Urea Nitrogen) 13 mg/dL (9.8-20.1); Calc. Creatinine Clearance 33 mL/min (70-130); Calcium 8.5 mg/dL (7.8-10.44); Carbon Dioxide 19 mmol/L (23-31); Chloride 110 mmol/L (98-107); Estimated GFR-MDRD 52; Glucose 104 mg/dL (83-110); Potassium 3.7 mmol/L (3.5-5.1); Sodium 141 mmol/L (136-145)
[2017-07-28 09:42] LABS: Lymphocytes 5 % (21-51); MDiff Complete? YES; Monocytes 3 % (0-10); Neutrophil 92 % (42-75); PLT Morphology Comment Appears Decreased; RBC Morphology Normal
[2017-07-28] MEDS ORDERED: Oseltamivir 75 MG CAP ONE ×2 (09:45→20:35)
[2017-07-28] MEDS: Aspirin 325 MG TAB PO SCH (09:53)
[2017-07-28] MEDS: Multivit, Therapeutic 1 TAB PO SCH (09:53)
[2017-07-28] MEDS: guaiFENesin ER 600 MG TAB PO SCH ×2 (09:53→20:38)
[2017-07-28] MEDS: Famotidine 20 MG TAB PO SCH (09:53)
[2017-07-28] MEDS: Loratadine 10 MG TAB PO SCH (09:54)
[2017-07-28] MEDS: Furosemide 20 MG TAB PO SCH (09:54)
[2017-07-28] MEDS: Oseltamivir 75 MG CAP PO SCH ×2 (09:54→20:37)
[2017-07-28] MEDS: Sterile Water 10 ML VIAL IVP SCH (09:55)
[2017-07-28] MEDS ORDERED: Albuterol Sulfate 2.5 mg/3 ml Neb NEB PRN (10:20)
[2017-07-28] MEDS: Sodium Chloride 0.9% 1,000 ML IV SCH (12:06)
--- NOTE | 2017-07-28 19:31 | RAD ---
CHEST TWO VIEWS 07/28/17 Comparison is made with the prior study of 07/25/17. There is less infiltrate around the right hilum and less density in this region than before. This is probably the best that this area has looked in the last week or so. There continues to be some streak ing in the left lung, strictly the lingula. There are no large effusions. There are no congestive ch anges today. The heart size is stable. IMPRESSION: Significant improvement in the right hilar region since the prior study. POS: HOME
[2017-07-28] MEDS: Rosuvastatin 10 MG TAB PO SCH (20:38)
[2017-07-29] MEDS: Sodium Chloride 0.9% 1,000 ML IV SCH ×4 (02:29→18:51)
[2017-07-29 06:21] LABS: Anion Gap 12 mmol/L (10-20); BUN (Urea Nitrogen) 12 mg/dL (9.8-20.1); Calc. Creatinine Clearance 29 mL/min (70-130); Calcium 8.1 mg/dL (7.8-10.44); Carbon Dioxide 22 mmol/L (23-31); Chloride 111 mmol/L (98-107); Estimated GFR-MDRD 44; Glucose 104 mg/dL (83-110); Sodium 142 mmol/L (136-145)
[2017-07-29 06:32] LABS: #Basophils 0.1 thou/uL (0.0-0.2); #Eosinphils 0.1 thou/uL (0.0-0.7); #Lymphocytes 0.8 thou/uL (1.20-3.40); #Monocytes 0.9 thou/uL (0.11-0.59); #Neutrophils 7.5 thou/uL (1.40-6.50); %Eosinophils 0.7 % (0.0-10.0); %Lymphocytes 8.2 % (21.0-51.0); %Monocytes 9.1 % (0.0-10.0); Hemoglobin 12.4 g/dL (12.0-16.0); Mean Corpuscular Hemoglobin 32.8 pg (27.0-31.0); Mean Corpuscular Volume 96.6 fl (81.0-99.0); Mean Platelet Volume 8.9 fL (7.4-10.4); Platelet Count 131 thou/uL (130-400); RBC Distribution Width 13.1 % (11.5-14.5); Red Blood Cell (RBC) Count 3.78 mill/uL (4.20-5.40); White Blood Cell (WBC) Count 9.3 thou/uL (4.8-10.8)
[2017-07-29] MEDS: Arformoterol 15 MCG/2 ML NEB NEB SCH ×2 (07:00→19:04)
[2017-07-29] MEDS: Budesonide 0.5 MG/2 ML NEB NEB SCH ×2 (07:01→18:56)
[2017-07-29] MEDS ORDERED: Oseltamivir 75 MG CAP ONE (08:12)
[2017-07-29] MEDS ORDERED: Potassium Chloride 20 MEQ TAB PO SCH (08:30)
[2017-07-29] MEDS: guaiFENesin ER 600 MG TAB PO SCH ×2 (09:18→20:43)
[2017-07-29] MEDS: Aspirin 325 MG TAB PO SCH (09:18)
[2017-07-29] MEDS: Famotidine 20 MG TAB PO SCH (09:18)
[2017-07-29] MEDS: Loratadine 10 MG TAB PO SCH (09:18)
[2017-07-29] MEDS: Oseltamivir 75 MG CAP PO SCH (09:18)
[2017-07-29] MEDS: Multivit, Therapeutic 1 TAB PO SCH (09:18)
[2017-07-29] MEDS: Sterile Water 10 ML VIAL IVP SCH (09:19)
[2017-07-29] MEDS: Rosuvastatin 10 MG TAB PO SCH (20:44)
--- NOTE | 2017-07-29 21:18 | HP ---
DATE OF ADMISSION: 07/27/2017 CHIEF COMPLAINT: Rehabilitation. HISTORY OF PRESENT ILLNESS: Ms. Vivas is an 87-year-old -Martiniquais female with past medical history of COPD, chronic cardiomyopathy, status post AICD placement, chronic diastolic heart failure who presented to the emergency department on 07/24/2017 with complaint of worsening dyspnea on exertion and malaise. She was found to be positive for both influenza A and B and was started on Tamiflu. In addition, her urinalysis was suspicious for infection. Blood and urine cultures were performed as she was placed on Rocephin empirically. She felt a little worse in the first 24 hours while we were awaiting on the urine cultures , so I added low-dose Levaquin. Due to presence of right hilar prominence, the patient had a CT scan of her chest. Infection could not be completely ruled out in the area of atelectasis, so the Levaquin dose was increased to cover for lung infection. She was given neb treatments, and her shortness of breath improved. She also received some fluid resuscitation during her hospitalization. When the urine culture results were back, the Rocephin was discontinued. The hypokalemia was corrected during the hospitalization was 4.0 today. She was also incidentally found to have a thyroid mass with CT scan. We discussed further workup of this to be obtained as an outpatient with probable ENT referral. She likely would not be a good candidate secondary to her pulmonary and cardiovascular status for surgical treatment. Patient has a history of chronic diastolic heart failure. It did not appear that she had any exacerbation of this during the hospitalization. Her medications were continued throughout her hospitalization with the exceptions of the Aldactone due to some low blood pressures early in the morning. She has been having this go on as an outpatient per the son's log prior to her hospitalization. Today, she is feeling much better, she felt like she did well with physical therapy evaluation and would benefit from therapy for deconditioning and therefore has been admitted to our swing bed unit. She currently denies shortness of breath. Her dyspnea on exertion has improved from admission. Malaise has improved. She has a minimally productive cough and is on Mucinex. We plan to continue her course of Tamiflu and Levaquin here and to get PT and OT evaluation. PAST MEDICAL HISTORY: 1. Diastolic congestive heart failure with most recent echocardiogram in 2016, noting a left ventricular ejection fraction of 50-55% with grade I diastolic dysfunction. 2. Chronic obstructive pulmonary disease followed by Dr. Holguin with Pulmonology, now O2 dependent, former smoker. 3. Hypertension. 4. Carotid stenosis. 5. Hyperlipidemia. 6. Recently found thyroid mass per CT scan. PAST SURGICAL HISTORY: 1. Heart catheterization. 2. Hernia repair. 3. AICD placement in 05/2013. FAMILY HISTORY: Father from dementia. Mother is . SOCIAL HISTORY: Former smoker, but quit approximately 6 years ago. No alcohol or illicit drug use. ALLERGIES: BENZONATATE causes dizziness, otherwise no known drug allergies. CURRENT MEDICATIONS: 1. Brovana 15 mcg nebulized b.i.d. 2. Aspirin 325 mg p.o. daily. 3. Pulmicort 0.25 mg nebulized b.i.d. 4. Pepcid 20 mg p.o. daily. 5. Lasix 20 mg p.o. every other day. 6. Mucinex ER 1200 mg p.o. q.12 hours. 7. Levaquin 500 mg IV q.24 hours to complete a 7-day course. 8. Zestril 2.5 mg p.o. at bedtime. 9. Claritin 10 mg p.o. daily. 10. Multivitamin 1 p.o. daily. 11. Tamiflu 75 mg p.o. b.i.d. to complete a 5-day course. 12. Ranexa 500 mg p.o. b.i.d. 13. Crestor 40 mg p.o. at bedtime. 14. Sodium chloride at 70 mL per hour. 15. Tylenol 650 mg p.o. q.4 hours p.r.n. pain or fever. 16. DuoNeb 3 mL nebulized q.i.d. p.r.n. 17. Promethazine suppositories 25 mg per rectum q.6 hours p.r.n. nausea. 18. Promethazine 25 mg p.o. q.6 hours p.r.n. nausea. REVIEW OF SYSTEMS: General: Denies fever, chills. Positive fatigue. Myalgias have improved. HEENT: Chronic clear intermittent rhinorrhea. The postnasal drip has resolved. Denies ear pain, or sore throat. Respiratory: Minimally productive cough of clear sputum. No hemoptysis. Chronic dyspnea on exertion. Cardiovascular: Denies chest pain, orthopnea, or PND. Gastrointestinal: Denies nausea, vomiting, diarrhea, constipation, abdominal pain. Genitourinary: Denies dysuria, frequency, urgency, malodorous urine. Lymphatics: Denies edema. Hematologic: Denies bleeding. Neurologic: Denies focal weakness, paresthesias, numbness, confusion, headaches, blurred vision, speech changes. Psychiatric: Denies anxiety or depression. PHYSICAL EXAMINATION: VITAL SIGNS: Temperature 97.5, pulse 74, respirations 20, O2 saturation 97% on 2 liters, blood pressure 104/60. GENERAL: Well-developed, thin -Martiniquais female in no acute distress, alert and oriented x3, nasal cannula in place. HEENT: Normocephalic, atraumatic. Pupils are equal, round, and reactive to light and accommodation. Extraocular muscles are intact. Nares are patent without discharge. Tongue protrudes in the midline. NECK: Supple, no lymphadenopathy, thyromegaly or JVD. HEART: Regular rate and rhythm with distant heart sounds. No murmurs, clicks, rubs, or gallops. LUNGS: Diminished air entry throughout with minimal fine basilar crackles. No wheezing. ABDOMEN: Positive bowel sounds in all four quadrants, soft, nontender, nondistended. No masses, guarding, or rebound tenderness. EXTREMITIES: No cyanosis, clubbing or edema. NEUROLOGIC: Cranial nerves II-XII grossly intact. No focal deficits. LABORATORY DATA: White count 13.4, hemoglobin 13.2, hematocrit 39.4, platelets 127 with 84% neutrophils and 6% lymphocytes. Sodium 139, potassium 4.0, chloride 107, bicarb 24, BUN 13, creatinine 1.11, glucose 107, calcium 8.2, B- type natriuretic peptide on 07/25/2017 was 88 and this a.m. was 41.6. Blood culture x2 from 07/24/2017 has no growth and urine culture from 07/24/2017 showed 10-25,000 colony forming units of mixed skin and enteric dell. Influenza A and B swab from 07/24/2017 positive. IMAGING: Please see the discharge summary from today's date from her hospital stay. ASSESSMENT AND PLAN: 1. Physical deconditioning. Patient will have PT and OT evaluation and treatment. 2. Influenza A/B. The patient will complete her 5-day course of Tamiflu. 3. Acute cystitis with hematuria. Her urine culture was nondiagnostic. She will continue Levaquin for 7-day course. 4. Chronic diastolic heart failure, present on admission. We will continue her current regimen holding the Aldactone due to hypotension. She is actually a little intravascularly volume depleted and so we will continue her IV fluids until her p.o. intake improves. 5. Right middle lobe atelectasis. On the CT scan, we could not exclude an infectious process. Therefore, the Levaquin will be continued at 500 mg IV daily for 7-day course. 6. Chronic hypoxic respiratory failure due to chronic obstructive pulmonary disease, present on admission. The patient will be continued on her oxygen and current nebulizer regimen. 7. Hyperlipidemia. Patient will be continued on her statin medication. 8. Thyroid mass. We will address this as an outpatient with ENT referral. 9. Prophylaxis. The patient will be continued on a proton pump inhibitor and will place SCDs while she is in bed. CODE STATUS: FULL CODE desired. MTDD
[2017-07-30] MEDS: Sodium Chloride 0.9% 1,000 ML IV SCH ×3 (04:12→09:12)
[2017-07-30] MEDS: Budesonide 0.5 MG/2 ML NEB NEB SCH ×2 (06:16→18:21)
[2017-07-30] MEDS: Arformoterol 15 MCG/2 ML NEB NEB SCH ×2 (06:24→18:27)
[2017-07-30] MEDS: Multivit, Therapeutic 1 TAB PO SCH (08:47)
[2017-07-30] MEDS: Furosemide 20 MG TAB PO SCH (08:48)
[2017-07-30] MEDS: Famotidine 20 MG TAB PO SCH (08:48)
[2017-07-30] MEDS: Loratadine 10 MG TAB PO SCH (08:48)
[2017-07-30] MEDS: guaiFENesin ER 600 MG TAB PO SCH ×2 (08:48→20:57)
[2017-07-30] MEDS: Aspirin 325 MG TAB PO SCH (08:48)
[2017-07-30] MEDS: Sterile Water 10 ML VIAL IVP SCH (09:12)
[2017-07-30] MEDS: Rosuvastatin 10 MG TAB PO SCH (20:56)
[2017-07-31] MEDS: Sodium Chloride 0.9% 1,000 ML IV SCH ×2 (01:24→17:26)
[2017-07-31 05:42] LABS: Chloride 115 mmol/L (98-107); Potassium 3.2 mmol/L (3.5-5.1); Sodium 143 mmol/L (136-145)
[2017-07-31 05:50] LABS: Calc. Creatinine Clearance 26 mL/min (70-130); Carbon Dioxide 21 mmol/L (23-31); Estimated GFR-MDRD 38; Glucose 105 mg/dL (83-110)
[2017-07-31 06:00] LABS: BUN (Urea Nitrogen) 8 mg/dL (9.8-20.1)
[2017-07-31 06:03] LABS: Anion Gap 10 mmol/L (10-20)
[2017-07-31] MEDS: Arformoterol 15 MCG/2 ML NEB NEB SCH ×2 (06:07→18:41)
[2017-07-31] MEDS: Budesonide 0.5 MG/2 ML NEB NEB SCH ×2 (06:08→18:20)
[2017-07-31] MEDS ORDERED: Potassium Chloride 20 MEQ TAB PO SCH (08:15)
[2017-07-31] MEDS: guaiFENesin ER 600 MG TAB PO SCH ×2 (09:07→20:20)
[2017-07-31] MEDS: Famotidine 20 MG TAB PO SCH (09:07)
[2017-07-31] MEDS: Multivit, Therapeutic 1 TAB PO SCH (09:08)
[2017-07-31] MEDS: Aspirin 325 MG TAB PO SCH (09:08)
[2017-07-31] MEDS: Loratadine 10 MG TAB PO SCH (09:08)
[2017-07-31] MEDS: Sterile Water 10 ML VIAL IVP SCH (09:13)
[2017-07-31] MEDS: Rosuvastatin 10 MG TAB PO SCH (20:20)
[2017-08-01] MEDS: Arformoterol 15 MCG/2 ML NEB NEB SCH ×2 (06:11→18:27)
[2017-08-01] MEDS: Budesonide 0.5 MG/2 ML NEB NEB SCH ×2 (06:12→18:11)
[2017-08-01] MEDS: Loratadine 10 MG TAB PO SCH (09:24)
[2017-08-01] MEDS: Aspirin 325 MG TAB PO SCH (09:24)
[2017-08-01] MEDS: Multivit, Therapeutic 1 TAB PO SCH (09:24)
[2017-08-01] MEDS: Famotidine 20 MG TAB PO SCH (09:25)
[2017-08-01] MEDS: guaiFENesin ER 600 MG TAB PO SCH ×2 (09:25→20:23)
[2017-08-01] MEDS: Sterile Water 10 ML VIAL IVP SCH (09:32)
[2017-08-01] MEDS: Rosuvastatin 10 MG TAB PO SCH (20:24)
[2017-08-02] MEDS: Arformoterol 15 MCG/2 ML NEB NEB SCH ×2 (06:02→18:19)
[2017-08-02] MEDS: Budesonide 0.5 MG/2 ML NEB NEB SCH ×2 (06:04→18:20)
[2017-08-02] MEDS: Loratadine 10 MG TAB PO SCH (08:58)
[2017-08-02] MEDS: Famotidine 20 MG TAB PO SCH (08:58)
[2017-08-02] MEDS: Aspirin 325 MG TAB PO SCH (08:58)
[2017-08-02] MEDS: guaiFENesin ER 600 MG TAB PO SCH ×2 (08:58→20:38)
[2017-08-02] MEDS: Multivit, Therapeutic 1 TAB PO SCH (08:58)
[2017-08-02] MEDS: Sterile Water 10 ML VIAL IVP SCH (08:59)
[2017-08-02] MEDS: Rosuvastatin 10 MG TAB PO SCH (20:37)
[2017-08-02 21:35] VITALS: BMI 25.2
[2017-08-03] MEDS: Budesonide 0.5 MG/2 ML NEB NEB SCH (06:03)
[2017-08-03 06:07] VITALS: TEMP 97.8
[2017-08-03] MEDS: Arformoterol 15 MCG/2 ML NEB NEB SCH (06:08)
[2017-08-03] MEDS: Loratadine 10 MG TAB PO SCH (09:19)
[2017-08-03] MEDS: Multivit, Therapeutic 1 TAB PO SCH (09:19)
[2017-08-03] MEDS: guaiFENesin ER 600 MG TAB PO SCH (09:19)
[2017-08-03] MEDS: Aspirin 325 MG TAB PO SCH (09:19)
[2017-08-03] MEDS: Famotidine 20 MG TAB PO SCH (09:20)
[2017-08-03] MEDS: Sterile Water 10 ML VIAL IVP SCH (09:21)
[2017-08-03 13:21] LABS: Anion Gap 11 mmol/L (10-20); BUN (Urea Nitrogen) 12 mg/dL (9.8-20.1); Calc. Creatinine Clearance 19 mL/min (70-130); Calcium 8.8 mg/dL (7.8-10.44); Carbon Dioxide 27 mmol/L (23-31); Chloride 105 mmol/L (98-107); Estimated GFR-MDRD 26; Glucose 92 mg/dL (83-110); Sodium 140 mmol/L (136-145)
[2017-08-03 13:26] LABS: Potassium 2.7 mmol/L (3.5-5.1)
[2017-08-03] MEDS ORDERED: Potassium Chloride 20 MEQ TAB PO SCH (14:00)
[2017-08-03 14:35] VITALS: BP 137/66
== END 2017-08-03 16:20 | disposition short-term general hospital (02) | DRG 948 ==
LOC: BURMED 16:27
PROVIDERS: ADMIT Family Medicine; ATTEND Family Medicine
DX: R53.1 Weakness (principal); N17.9 Acute kidney failure, unspecified; I95.9 Hypotension, unspecified; J96.11 Chronic respiratory failure with hypoxia; I42.9 Cardiomyopathy, unspecified; I11.0 Hypertensive heart disease with heart failure; I50.32 Chronic diastolic (congestive) heart failure; I65.29 Occlusion and stenosis of unspecified carotid artery; N30.01 Acute cystitis with hematuria; J98.11 Atelectasis; Z99.81 Dependence on supplemental oxygen; J44.9 Chronic obstructive pulmonary disease, unspecified; Z95.810 Presence of automatic (implantable) cardiac defibrillator; E87.6 Hypokalemia; Z87.891 Personal history of nicotine dependence; E78.5 Hyperlipidemia, unspecified; Z79.82 Long term (current) use of aspirin; Z79.51 Long term (current) use of inhaled steroids; J10.1 Influenza due to other identified influenza virus with other respiratory manifestations; E07.9 Disorder of thyroid, unspecified
CPT/HCPCS: 36415; 71046; 80048; 85007; 85025; 85027; 94640; A4216; G8978-GP-CM; G8979-GP-CI; G8987-GO-CK; G8988-GO-CI; J1956; J7620; J7626

== ENCOUNTER 2017-08-06 14:59 | Inpatient (IN) | payer MEDICARE ==
[2017-08-06] MEDS ORDERED: Furosemide 20 MG TAB PO PRN (18:43)
[2017-08-06] MEDS ORDERED: Albuterol Sulfate 2.5 mg/3 ml Neb NEB PRN (18:43)
[2017-08-06] MEDS: Arformoterol 15 MCG/2 ML NEB NEB SCH (21:31)
[2017-08-06] MEDS: Docusate 100 MG CAP PO SCH (21:36)
[2017-08-06] MEDS: Rosuvastatin 10 MG TAB PO SCH (21:36)
[2017-08-06] MEDS: Budesonide 0.5 MG/2 ML NEB NEB SCH (21:47)
[2017-08-07 06:24] LABS: Anion Gap 16 mmol/L (10-20); BUN (Urea Nitrogen) 10 mg/dL (9.8-20.1); Calc. Creatinine Clearance 32 mL/min (70-130); Calcium 9.5 mg/dL (7.8-10.44); Carbon Dioxide 25 mmol/L (23-31); Chloride 104 mmol/L (98-107); Estimated GFR-MDRD 50; Glucose 92 mg/dL (83-110); Sodium 141 mmol/L (136-145)
[2017-08-07 06:29] LABS: Potassium 3.6 mmol/L (3.5-5.1)
[2017-08-07] MEDS: Multivitamin W/ Minerals 1 TAB PO SCH (09:33)
[2017-08-07] MEDS: Docusate 100 MG CAP PO SCH ×2 (09:34→21:28)
[2017-08-07] MEDS: Aspirin 325 MG TAB PO SCH (09:34)
[2017-08-07] MEDS: Potassium Chloride 20 MEQ TAB PO SCH ×2 (09:34→18:19)
[2017-08-07] MEDS: Loratadine 10 MG TAB PO SCH (09:34)
[2017-08-07] MEDS: Arformoterol 15 MCG/2 ML NEB NEB SCH ×2 (09:35→21:26)
[2017-08-07] MEDS: Budesonide 0.5 MG/2 ML NEB NEB SCH ×2 (09:46→21:28)
[2017-08-07] MEDS ORDERED: FLU VACC TS2017-18 (>65YR) 0.5 ML SYRINGE IM ONE (21:00)
[2017-08-07] MEDS: Rosuvastatin 10 MG TAB PO SCH (21:27)
[2017-08-08 06:05] LABS: Anion Gap 16 mmol/L (10-20); BUN (Urea Nitrogen) 13 mg/dL (9.8-20.1); Calc. Creatinine Clearance 34 mL/min (70-130); Calcium 8.8 mg/dL (7.8-10.44); Carbon Dioxide 25 mmol/L (23-31); Chloride 106 mmol/L (98-107); Estimated GFR-MDRD 54; Glucose 88 mg/dL (83-110); Potassium 4.2 mmol/L (3.5-5.1); Sodium 143 mmol/L (136-145)
[2017-08-08] MEDS: Budesonide 0.5 MG/2 ML NEB NEB SCH ×2 (08:28→20:06)
[2017-08-08] MEDS: Aspirin 325 MG TAB PO SCH (08:29)
[2017-08-08] MEDS: Loratadine 10 MG TAB PO SCH (08:29)
[2017-08-08] MEDS: Multivitamin W/ Minerals 1 TAB PO SCH (08:29)
[2017-08-08] MEDS: Docusate 100 MG CAP PO SCH ×2 (08:29→20:06)
[2017-08-08] MEDS: Potassium Chloride 20 MEQ TAB PO SCH ×2 (08:30→17:59)
[2017-08-08] MEDS: Arformoterol 15 MCG/2 ML NEB NEB SCH ×2 (10:31→20:10)
[2017-08-08] MEDS: Rosuvastatin 10 MG TAB PO SCH (20:06)
[2017-08-09 06:13] LABS: Anion Gap 16 mmol/L (10-20); BUN (Urea Nitrogen) 13 mg/dL (9.8-20.1); Calc. Creatinine Clearance 35 mL/min (70-130); Calcium 9.3 mg/dL (7.8-10.44); Carbon Dioxide 26 mmol/L (23-31); Chloride 104 mmol/L (98-107); Estimated GFR-MDRD 55; Glucose 89 mg/dL (83-110); Potassium 3.8 mmol/L (3.5-5.1)
[2017-08-09 06:21] LABS: Sodium 142 mmol/L (136-145)
[2017-08-09] MEDS: Aspirin 325 MG TAB PO SCH (08:32)
[2017-08-09] MEDS: Docusate 100 MG CAP PO SCH ×2 (08:32→20:48)
[2017-08-09] MEDS: Multivitamin W/ Minerals 1 TAB PO SCH (08:33)
[2017-08-09] MEDS: Loratadine 10 MG TAB PO SCH (08:34)
[2017-08-09] MEDS: Arformoterol 15 MCG/2 ML NEB NEB SCH ×2 (08:36→20:51)
[2017-08-09] MEDS: Budesonide 0.5 MG/2 ML NEB NEB SCH ×2 (08:42→21:08)
[2017-08-09] MEDS: Rosuvastatin 10 MG TAB PO SCH (20:48)
[2017-08-10] MEDS: Docusate 100 MG CAP PO SCH ×2 (08:39→20:40)
[2017-08-10] MEDS: Aspirin 325 MG TAB PO SCH (08:39)
[2017-08-10] MEDS: Loratadine 10 MG TAB PO SCH (08:39)
[2017-08-10] MEDS: Arformoterol 15 MCG/2 ML NEB NEB SCH ×2 (08:39→20:38)
[2017-08-10] MEDS: Multivitamin W/ Minerals 1 TAB PO SCH (08:39)
[2017-08-10] MEDS: Budesonide 0.5 MG/2 ML NEB NEB SCH ×2 (08:44→20:39)
[2017-08-10 10:43] VITALS: BMI 25.2
[2017-08-10] MEDS: Rosuvastatin 10 MG TAB PO SCH (20:40)
[2017-08-11] MEDS: Multivitamin W/ Minerals 1 TAB PO SCH (10:17)
[2017-08-11] MEDS: Aspirin 325 MG TAB PO SCH (10:17)
[2017-08-11] MEDS: Docusate 100 MG CAP PO SCH ×2 (10:17→20:37)
[2017-08-11] MEDS: Loratadine 10 MG TAB PO SCH (10:18)
[2017-08-11] MEDS: Budesonide 0.5 MG/2 ML NEB NEB SCH ×2 (10:19→20:38)
[2017-08-11] MEDS: Arformoterol 15 MCG/2 ML NEB NEB SCH ×2 (10:20→20:37)
[2017-08-11] MEDS: Rosuvastatin 10 MG TAB PO SCH (20:37)
[2017-08-12 06:21] VITALS: BP 119/57; TEMP 98.3
[2017-08-12] MEDS: Multivitamin W/ Minerals 1 TAB PO SCH (08:47)
[2017-08-12] MEDS: Arformoterol 15 MCG/2 ML NEB NEB SCH (08:47)
[2017-08-12] MEDS: Docusate 100 MG CAP PO SCH (08:47)
[2017-08-12] MEDS: Aspirin 325 MG TAB PO SCH (08:47)
[2017-08-12] MEDS: Loratadine 10 MG TAB PO SCH (08:47)
[2017-08-12] MEDS: Budesonide 0.5 MG/2 ML NEB NEB SCH (08:53)
== END 2017-08-12 12:45 | disposition home or self-care (01) | DRG 683 ==
LOC: BURMED 16:38
PROVIDERS: ADMIT Family Medicine; ATTEND Family Medicine
DX: N17.9 Acute kidney failure, unspecified (principal); I50.32 Chronic diastolic (congestive) heart failure; J96.10 Chronic respiratory failure, unspecified whether with hypoxia or hypercapnia; I42.8 Other cardiomyopathies; I11.0 Hypertensive heart disease with heart failure; J44.9 Chronic obstructive pulmonary disease, unspecified; E78.5 Hyperlipidemia, unspecified; I25.10 Atherosclerotic heart disease of native coronary artery without angina pectoris; Z87.891 Personal history of nicotine dependence; Z99.81 Dependence on supplemental oxygen; Z95.810 Presence of automatic (implantable) cardiac defibrillator; Z79.82 Long term (current) use of aspirin; E87.6 Hypokalemia
CPT/HCPCS: 36415; 80048; 90471; 90682; G0008; G8978-GP-CK; G8979-GP-CI; G8987-GO-CK; G8988-GO-CI; J7626; Q2036

== ENCOUNTER 2018-07-05 07:13 | Emergency (ER) | payer MEDICARE ==
[2018-07-05 07:53] LABS: #Basophils 0.1 thou/uL (0.0-0.2); #Eosinphils 0.1 thou/uL (0.0-0.7); #Lymphocytes 1.3 thou/uL (1.20-3.40); #Monocytes 0.6 thou/uL (0.11-0.59); #Neutrophils 3.3 thou/uL (1.40-6.50); %Basophils 1.2 % (0.0-1.0); %Eosinophils 2.6 % (0.0-10.0); %Lymphocytes 24.1 % (21.0-51.0); %Monocytes 10.1 % (0.0-10.0); %Neutrophils 61.9 % (42.0-75.0); Hemoglobin 13.9 g/dL (12.0-16.0); Mean Corpuscular HGB CONC 31.9 g/dL (32.0-36.0); Mean Corpuscular Hemoglobin 30.1 pg (27.0-31.0); Mean Corpuscular Volume 94.3 fL (78.0-98.0); Mean Platelet Volume 6.7 fL (7.4-10.4); Platelet Count 235 thou/uL (130-400); RBC Distribution Width 13.8 % (11.5-14.5); Red Blood Cell (RBC) Count 4.61 mill/uL (4.20-5.40); White Blood Cell (WBC) Count 5.4 thou/uL (4.8-10.8)
[2018-07-05 08:07] LABS: ALT (SGPT) 24 U/L (8-55); AST (SGOT) 29 U/L (5-34); Albumin 3.3 g/dL (3.4-4.8); Alkaline Phosphatase 86 U/L (40-150); Anion Gap 12 mmol/L (10-20); BUN (Urea Nitrogen) 23 mg/dL (9.8-20.1); Bilirubin, Total 0.3 mg/dL (0.2-1.2); Calc. Creatinine Clearance 0 mL/min (70-130); Calcium 9.5 mg/dL (7.8-10.44); Carbon Dioxide 29 mmol/L (23-31); Chloride 104 mmol/L (98-107); Estimated GFR-MDRD 51; Globulin 3.1 g/dL (2.4-3.5); Glucose 108 mg/dL (83-110); Potassium 4.3 mmol/L (3.5-5.1); Protein, Total 6.4 g/dL (6.0-8.3); Sodium 141 mmol/L (136-145)
[2018-07-05] MEDS ORDERED: methylPREDNISolone Sod Succ/PF 125 MG/2 ML VIAL ONE (08:29)
--- NOTE | 2018-07-05 19:00 | RAD ---
PORTABLE CHEST: Date: 07-05-18 An AP portable film at 0724 is compared with a 09-24-17 study. FINDINGS: The heart is basically normal in size for a portable study. There are no congestive changes or pleura l effusions. An AICD is in place as usual. The upper lobes are clear. There is increased haziness in the right lung base compared to before. A part of this could be due to portable technique and the pat ient being turned slightly. I cannot exclude a minimal infiltrate here. Arteriosclerotic change is se en in the aorta. IMPRESSION: 1. No evidence of congestive change. 2. Right basilar haziness which may or may not be significant. Correlate with clinical symptoms. POS: HOME
== END 2018-07-05 08:41 | disposition home or self-care (01) ==
LOC: BURERS 07:13
DX: J44.1 Chronic obstructive pulmonary disease with (acute) exacerbation (principal); I11.0 Hypertensive heart disease with heart failure; I50.9 Heart failure, unspecified; E78.5 Hyperlipidemia, unspecified; Z87.891 Personal history of nicotine dependence; Z79.82 Long term (current) use of aspirin; Z79.899 Other long term (current) drug therapy
CPT/HCPCS: 71045; 80053; 83880; 84484; 85025; 93005; 94640; 94760; 96374; J2930; J7620

== ENCOUNTER 2019-12-06 07:15 | Inpatient (IN) | payer MEDICARE ==
[2019-12-06 07:53] LABS: #Basophils 0.1 thou/uL (0.0-0.2); #Eosinphils 0.2 thou/uL (0.0-0.7); #Lymphocytes 1.2 thou/uL (1.20-3.40); #Monocytes 0.5 thou/uL (0.11-0.59); #Neutrophils 3.8 thou/uL (1.40-6.50); %Basophils 1.2 % (0.0-1.0); %Eosinophils 3.2 % (0.0-10.0); %Lymphocytes 20.2 % (21.0-51.0); %Neutrophils 66.3 % (42.0-75.0); Hemoglobin 11.5 g/dL (12.0-16.0); Mean Corpuscular HGB CONC 29.5 g/dL (32.0-36.0); Mean Corpuscular Hemoglobin 28.4 pg (27.0-31.0); Mean Corpuscular Volume 96.3 fL (78.0-98.0); Mean Platelet Volume 6.6 fL (7.4-10.4); Platelet Count 252 thou/uL (130-400); RBC Distribution Width 15.3 % (11.5-14.5); Red Blood Cell (RBC) Count 4.06 mill/uL (4.20-5.40); White Blood Cell (WBC) Count 5.7 thou/uL (4.8-10.8)
[2019-12-06 08:09] LABS: ALT (SGPT) 16 U/L (8-55); AST (SGOT) 23 U/L (5-34); Albumin 3.3 g/dL (3.4-4.8); Alkaline Phosphatase 113 U/L (40-110); Anion Gap 14 mmol/L (10-20); BUN (Urea Nitrogen) 25 mg/dL (9.8-20.1); Bilirubin, Total 0.4 mg/dL (0.2-1.2); CK (CPK) 87 U/L (29-168); Calc. Creatinine Clearance 0 mL/min (70-130); Calcium 9.6 mg/dL (7.8-10.44); Carbon Dioxide 30 mmol/L (23-31); Chloride 102 mmol/L (98-107); Estimated GFR-MDRD 27; Globulin 3.2 g/dL (2.4-3.5); Glucose 118 mg/dL (83-110); Lipase 23 U/L (8-78); Magnesium 2.1 mg/dL (1.6-2.6); Potassium 3.9 mmol/L (3.5-5.1); Protein, Total 6.5 g/dL (6.0-8.3); Sodium 142 mmol/L (136-145)
[2019-12-06 08:18] LABS: Anisocytosis SLIGHT = 6-15 cells (100X) (0-5/hpf); MDiff Complete? YES; Platelet Morphology Comment Appears Adequate
[2019-12-06 08:21] LABS: Bilirubin Negative (Negative); Blood, Urine Small (Negative); Clarity Clear (Clear); Glucose, Urine (Dipstick) Negative (Negative); Leukocyte Negative (Negative); Nitrite Negative (Negative); Protein, Urine (Dipstick) > or equal to 300 mg/dL (Neg-Trace); Urobilinogen 0.2 mg/dL (Less than 2)
[2019-12-06 08:35] LABS: RBC/HPF 0-3 HPF (0-3); WBC/HPF 0-3 HPF (0-3)
[2019-12-06 08:36] LABS: Bacteria/HPF Rare-Few HPF (None Seen); Squamous Epithelial 0-3 HPF (0-3)
[2019-12-06] MEDS ORDERED: Aspirin Chewable 81 MG TAB ONE (08:43)
[2019-12-06 10:03] VITALS: BMI 23.9
[2019-12-06] MEDS ORDERED: Sodium Chloride 0.9% 1,000 ML IV SCH ×2 (10:12→18:07)
[2019-12-06] MEDS ORDERED: Acetaminophen 325 MG TAB PO PRN (10:12)
--- NOTE | 2019-12-06 14:25 | RAD ---
PORTABLE CHEST: 12/06/19 Comparison is made with the 07/05/18 study. There has been little change in the interval. The heart size is about the same. The AICD remains in p lace. The upper lobe vessels are not congested, nor are there large pleural effusions. It is difficul t to fully assess the left base due to portable technique and the generator from the pacer. The lungs are clear except for right basilar haziness, but this area looked exactly like this on the 2019 study. Thus, there has been really no loom changeover operator time. There appears to be a little bit of steven l beneath the right hemidiaphragm insinuated between it and the liver, a not uncommon condition. Calc ific changes are seen in the aortic arch. IMPRESSION: Chronic changes but no definite acute findings. POS: HOME
[2019-12-06 14:31] LABS: Anion Gap 13 mmol/L (10-20); BUN (Urea Nitrogen) 21 mg/dL (9.8-20.1); Calc. Creatinine Clearance 20 mL/min (70-130); Calcium 8.7 mg/dL (7.8-10.44); Carbon Dioxide 26 mmol/L (23-31); Chloride 105 mmol/L (98-107); Estimated GFR-MDRD 31; Glucose 125 mg/dL (83-110); Potassium 3.6 mmol/L (3.5-5.1); Sodium 140 mmol/L (136-145)
[2019-12-06] MEDS ORDERED: Furosemide 20 MG TAB PO PRN (18:02)
[2019-12-06] MEDS: Rosuvastatin 10 MG TAB PO SCH (20:48)
[2019-12-06] MEDS: Sodium Chloride 0.9% 1,000 ML IV SCH (20:50)
--- NOTE | 2019-12-06 23:41 | HP ---
CHIEF COMPLAINT: Generalized weakness. HISTORY OF PRESENT ILLNESS: The patient is an extremely pleasant 89-year-old female, who was brought to the emergency room by her son, who reports about a one month history of progressive generalized weakness, followed by poor appetite with decreased p.o. and decreased fluid intake over the last week. The patient also was noted to have intermittent episodes of shortness of breath with chest discomfort, but denies true chest pain, cough, or fever. She reports some constipation, generalized aches and pains and was noted by her son to be unable to get out of bed on her own and ambulate, which is her baseline status and thus was brought to the emergency room. In the emergency room, the patient was found to have acute renal injury with a creatinine of almost 3 times her normal with dehydration, requiring inpatient stay. PAST MEDICAL HISTORY: Significant for, 1. Mild coronary artery disease. 2. History of nonischemic cardiomyopathy. 3. History of hypertension. 4. COPD, on chronic oxygen use. 5. Hyperlipidemia. 6. History of carotid stenosis. 7. History of chronic respiratory failure, on home oxygen. PAST SURGICAL HISTORY: Includes an AICD placement, hernia repair, and cardiac catheterization. ALLERGIES: THE PATIENT IS ALLERGIC TO TESSALON PERLES. HOME MEDICATIONS: Include, 1. Aspirin 325 mg p.o. b.i.d. 2. Perforomist 20 mcg b.i.d. 3. Loratadine 10 mg daily. 4. Ranexa 500 mg p.o. b.i.d. 5. Crestor 40 mg p.o. nightly. 6. Lasix 20 mg daily. 7. Lisinopril 20 mg daily. 8. The patient is on multivitamins daily. SOCIAL HISTORY: The patient denies alcohol or social drug use. She is a former smoker, quit more than 10 years ago. FAMILY HISTORY: Noncontributory and father of dementia. REVIEW OF SYSTEMS: The patient reports some slight generalized discomfort as in HPI. No recent visual changes reported. The patient reports poor appetite and some constipation, but actually no nausea, no vomiting, and no diarrhea reported. The patient reports some intermittent shortness of breath, which is nonspecific in nature. She is on chronic oxygen use. Reports no significant increased cough nor chest pain. The patient denies any dysuria, hematuria, or change in urinary frequency. The patient denies any recent significant weight gain. May have had some weight loss, unknown to the patient. The patient denies any rashes. No significant increased back pain, and the patient denies depression. PHYSICAL EXAMINATION: GENERAL: Weak-appearing female, elderly, in no obvious distress. VITAL SIGNS: Significant for blood pressure 158/68, respiratory rate was 20, pulse was 88, and O2 saturation was 94% on 2 L. HEENT: Atraumatic and normocephalic. Extraocular movements were intact. Oropharynx, mucous membranes were slightly dry. NECK: Supple. No masses palpated. CHEST: Clear to auscultation bilaterally with prolonged expiration. HEART: Regular rate and rhythm. ABDOMEN: Flat, soft, nontender, and nondistended. No masses were palpated. EXTREMITIES: Show no cyanosis, clubbing, nor edema. LABORATORY DATA: Chest x-ray, which showed no acute findings. Urinalysis shows no obvious signs of UTI. Hematology significant for hemoglobin of 11.5, hematocrit is 39.1. Chemistries are significant for creatinine of 2.12. The patient's baseline creatinine was 1.01 in September of 2019. Glucose was 118. BNP was 220. Troponin was less than 0.01. ASSESSMENT AND PLAN: 1. Acute renal injury. The patient is on DAVID inhibitor. She appears to have decreased p.o. intake, likely prerenal in nature with some mild dehydration. 2. Dehydration causing #1 above. 3. Generalized debilitation and extreme weakness. The patient is unable to ambulate, unable to get out of bed, this is likely secondary to her acute renal failure. Due to the patient's age and the fact that she lives alone and her comorbidities, the patient will need greater than two midnights stay to improve her symptoms. Her creatinine is greater than two times normal. Even with resolution of her creatinine within 24 hours, the patient will unable to be clinically improved within a 24-hour period and thus, will need at least two midnights to resolve her acute renal failure, give her IV and oral hydration as needed and improve her ability to ambulate and live independently, which is her baseline at home. We will order physical therapy and occupational therapy. 4. Congestive heart failure. Due to the patient's congestive heart failure, we will have to give her rehydration by IV fluids very conservatively. She is a high risk for going into congestive heart failure and thus again will need two midnights stay to improve her dehydration and acute renal injury. 5. Chronic obstructive pulmonary disease. The patient is oxygen dependent. We will continue the patient on her oxygen and neb treatments as needed. 6. Mild coronary artery disease. The patient's troponin was less than 0.01. There is no sign of acute cardiac injury at this time. 7. Disposition, the patient will likely need greater than two midnights as above, that is expected due to her comorbidities and acute renal failure and her severe debilitation. It is also likely that she may need further physical therapy and occupational therapy and may need to be evaluated for swing bed. We will reassess her over the next few days. Goal will eventually to be discharged back to home independent living, which is her baseline. Job ID: [id number]
[2019-12-07 05:06] LABS: #Basophils 0.1 thou/uL (0.0-0.2); #Eosinphils 0.2 thou/uL (0.0-0.7); #Lymphocytes 1.2 thou/uL (1.20-3.40); #Monocytes 0.7 thou/uL (0.11-0.59); #Neutrophils 6.5 thou/uL (1.40-6.50); %Basophils 1.1 % (0.0-1.0); %Lymphocytes 13.9 % (21.0-51.0); %Monocytes 8.1 % (0.0-10.0); %Neutrophils 74.9 % (42.0-75.0); Hemoglobin 11.2 g/dL (12.0-16.0); Mean Corpuscular Hemoglobin 29.1 pg (27.0-31.0); Mean Platelet Volume 7.2 fL (7.4-10.4); Platelet Count 254 thou/uL (130-400); Red Blood Cell (RBC) Count 3.85 mill/uL (4.20-5.40); White Blood Cell (WBC) Count 8.6 thou/uL (4.8-10.8)
[2019-12-07 05:21] LABS: Anion Gap 14 mmol/L (10-20); BUN (Urea Nitrogen) 19 mg/dL (9.8-20.1); Carbon Dioxide 26 mmol/L (23-31); Chloride 106 mmol/L (98-107); Potassium 3.5 mmol/L (3.5-5.1); Sodium 142 mmol/L (136-145)
[2019-12-07 05:29] LABS: ALT (SGPT) 13 U/L (8-55); AST (SGOT) 19 U/L (5-34); Alkaline Phosphatase 105 U/L (40-110); Bilirubin, Total 0.3 mg/dL (0.2-1.2); Calc. Creatinine Clearance 22 mL/min (70-130); Estimated GFR-MDRD 36; Glucose 102 mg/dL (83-110)
[2019-12-07] MEDS: Docusate 100 MG CAP PO PRN (05:33)
[2019-12-07] MEDS: Aspirin 325 MG TAB PO SCH (08:22)
[2019-12-07] MEDS: Multivit, Therapeutic 1 TAB PO SCH (08:22)
[2019-12-07] MEDS: Loratadine 10 MG TAB PO SCH (08:22)
[2019-12-07] MEDS: Budesonide 0.5 MG/2 ML NEB NEB SCH (08:22)
[2019-12-07] MEDS: Potassium Chloride 20 MEQ TAB PO SCH ×2 (08:26→16:39)
[2019-12-07] MEDS: Sodium Chloride 0.9% 1,000 ML IV SCH (08:27)
[2019-12-07] MEDS: Albuterol Sulfate 2.5 mg/3 ml Neb NEB PRN (16:34)
[2019-12-07] MEDS: Senokot S 8.6-50 MG TAB PO PRN (16:38)
[2019-12-07] MEDS ORDERED: Furosemide 20 MG/2 ML VIAL SLOW IVP SCH (17:30)
[2019-12-07] MEDS: Rosuvastatin 10 MG TAB PO SCH (20:47)
[2019-12-07] MEDS: FORMOTEROL FUMARATE 20 MCG/2 ML NEB SCH (20:49)
[2019-12-08] MEDS: Senokot S 8.6-50 MG TAB PO PRN (04:53)
[2019-12-08 05:29] LABS: ALT (SGPT) 11 U/L (8-55); AST (SGOT) 19 U/L (5-34); Albumin 2.5 g/dL (3.4-4.8); Alkaline Phosphatase 85 U/L (40-110); Anion Gap 10 mmol/L (10-20); BUN (Urea Nitrogen) 19 mg/dL (9.8-20.1); Bilirubin, Total Less than 0.2 mg/dL (0.2-1.2); Calc. Creatinine Clearance 24 mL/min (70-130); Calcium 8.6 mg/dL (7.8-10.44); Carbon Dioxide 27 mmol/L (23-31); Chloride 107 mmol/L (98-107); Estimated GFR-MDRD 38; Globulin 2.6 g/dL (2.4-3.5); Glucose 106 mg/dL (83-110); Potassium 3.7 mmol/L (3.5-5.1); Protein, Total 5.1 g/dL (6.0-8.3); Sodium 140 mmol/L (136-145)
[2019-12-08] MEDS ORDERED: REVEFENACIN 175 MCG/3 ML NEB SCH (08:00)
[2019-12-08] MEDS: Multivit, Therapeutic 1 TAB PO SCH (08:26)
[2019-12-08] MEDS: Loratadine 10 MG TAB PO SCH (08:26)
[2019-12-08] MEDS: Docusate 100 MG CAP PO PRN (08:26)
[2019-12-08] MEDS: Aspirin 325 MG TAB PO SCH (08:27)
[2019-12-08] MEDS: Potassium Chloride 20 MEQ TAB PO SCH ×2 (08:27→17:25)
[2019-12-08] MEDS: Budesonide 0.5 MG/2 ML NEB NEB SCH (08:27)
[2019-12-08] MEDS: FORMOTEROL FUMARATE 20 MCG/2 ML NEB SCH ×2 (09:54→20:32)
[2019-12-08] MEDS: Albuterol Sulfate 2.5 mg/3 ml Neb NEB PRN (18:12)
--- NOTE | 2019-12-08 18:13 | RAD ---
PORTABLE CHEST: 12/08/19 An AP portable film at 0906 is compared with a 12/06/19 study. There has been little change in the interval. There is still right basilar haziness, only marginally more than before, and in part this could be due to positioning. The left lung seems no different. The left lung seems no different. There are no large effusions. The upper lobe vessels do not appear con gested. The heart size is stable. IMPRESSION: Minimal change since 12/05. POS: HOME
[2019-12-08 18:43] VITALS: BP 126/74; TEMP 98.6
[2019-12-08] MEDS: Rosuvastatin 10 MG TAB PO SCH (20:31)
== END 2019-12-08 21:15 | disposition swing bed (61) | DRG 683 ==
LOC: BURERS 07:15 → BURMED 08:42
PROVIDERS: ADMIT Family Medicine; ATTEND Family Medicine
DX: N17.9 Acute kidney failure, unspecified (principal); I42.8 Other cardiomyopathies; J96.10 Chronic respiratory failure, unspecified whether with hypoxia or hypercapnia; E86.0 Dehydration; I25.10 Atherosclerotic heart disease of native coronary artery without angina pectoris; J44.9 Chronic obstructive pulmonary disease, unspecified; E78.5 Hyperlipidemia, unspecified; Z99.81 Dependence on supplemental oxygen; Z95.810 Presence of automatic (implantable) cardiac defibrillator
CPT/HCPCS: 36415; 71045; 80053; 81003; 81015; 82550; 83690; 83735; 83880; 84484; 85025; 93005; J1940; J7050; J7611; J7626

== ENCOUNTER 2019-12-08 21:15 | Inpatient (IN) | payer MEDICARE ==
[~2019-12-08 21:15] MED LIST: Acetaminophen 325 MG TAB PO PRN; Furosemide 20 MG TAB PO PRN; Rosuvastatin 10 MG TAB PO SCH; Senokot S 8.6-50 MG TAB PO PRN
[2019-12-09] MEDS: Albuterol Sulfate 2.5 mg/3 ml Neb NEB PRN ×4 (00:55→23:44)
[2019-12-09] MEDS: Multivit, Therapeutic 1 TAB PO SCH ×2 (00:59→08:21)
[2019-12-09] MEDS: FORMOTEROL FUMARATE 20 MCG/2 ML NEB SCH ×4 (00:59→21:46)
[2019-12-09] MEDS: REVEFENACIN 175 MCG/3 ML NEB SCH ×2 (04:20→08:17)
[2019-12-09] MEDS: Potassium Chloride 20 MEQ TAB PO SCH ×3 (04:21→17:44)
[2019-12-09] MEDS: Aspirin 325 MG TAB PO SCH ×2 (04:22→08:21)
[2019-12-09] MEDS: Budesonide 0.5 MG/2 ML NEB NEB SCH ×2 (04:22→08:22)
[2019-12-09] MEDS: Loratadine 10 MG TAB PO SCH ×2 (04:22→08:21)
[2019-12-09 07:07] VITALS: BMI 23.9
[2019-12-09] MEDS ORDERED: Milk Of Magnesia 30 ML UDCUP PO PRN ×2 (07:36→15:43)
[2019-12-09] MEDS: Docusate 100 MG CAP PO PRN (08:21)
[2019-12-09] MEDS ORDERED: Polyethylene Glycol 3350 17 GM Packet PO SCH (09:00)
[2019-12-09] MEDS ORDERED: Furosemide 20 MG TAB PO PRN (15:43)
[2019-12-09] MEDS ORDERED: Albuterol Sulfate 2.5 mg/3 ml Neb NEB PRN (15:43)
[2019-12-09] MEDS ORDERED: Acetaminophen 325 MG TAB PO PRN (15:43)
[2019-12-09] MEDS ORDERED: Docusate 100 MG CAP PO SCH (15:45)
[2019-12-09] MEDS ORDERED: Non-Formulary Item 1 EACH (Formoterol Fumarate [Perforomist] 20 MCG) IH SCH (21:00)
[2019-12-09] MEDS: Rosuvastatin 10 MG TAB PO SCH ×2 (21:46→23:40)
[2019-12-10] MEDS: REVEFENACIN 175 MCG/3 ML NEB SCH (07:48)
[2019-12-10] MEDS ORDERED: Loratadine 10 MG TAB PO SCH (09:00)
[2019-12-10] MEDS ORDERED: BUDESONIDE INH SCH (09:00)
[2019-12-10] MEDS ORDERED: REVEFENACIN INH SCH (09:00)
[2019-12-10] MEDS: Budesonide 0.5 MG/2 ML NEB NEB SCH (09:06)
[2019-12-10] MEDS: Polyethylene Glycol 3350 17 GM Packet PO SCH (09:10)
[2019-12-10] MEDS: FORMOTEROL FUMARATE 20 MCG/2 ML NEB SCH ×2 (09:10→21:37)
[2019-12-10] MEDS: Aspirin 325 MG TAB PO SCH (09:11)
[2019-12-10] MEDS: Multivit, Therapeutic 1 TAB PO SCH (09:11)
[2019-12-10] MEDS: Loratadine 10 MG TAB PO SCH (09:11)
[2019-12-10] MEDS: Potassium Chloride 20 MEQ TAB PO SCH ×2 (09:12→17:08)
[2019-12-10] MEDS: Albuterol Sulfate 2.5 mg/3 ml Neb NEB PRN ×2 (13:55→19:48)
[2019-12-10] MEDS: Rosuvastatin 10 MG TAB PO SCH (21:37)
[2019-12-11] MEDS: Albuterol Sulfate 2.5 mg/3 ml Neb NEB PRN ×2 (06:28→15:50)
[2019-12-11] MEDS: REVEFENACIN 175 MCG/3 ML NEB SCH (08:47)
[2019-12-11] MEDS: Polyethylene Glycol 3350 17 GM Packet PO SCH (08:57)
[2019-12-11] MEDS: Potassium Chloride 20 MEQ TAB PO SCH ×2 (08:59→17:24)
[2019-12-11] MEDS: Aspirin 325 MG TAB PO SCH (08:59)
[2019-12-11] MEDS: Loratadine 10 MG TAB PO SCH (08:59)
[2019-12-11] MEDS: Docusate 100 MG CAP PO PRN (08:59)
[2019-12-11] MEDS: Multivit, Therapeutic 1 TAB PO SCH (08:59)
[2019-12-11] MEDS: Budesonide 0.5 MG/2 ML NEB NEB SCH (09:00)
[2019-12-11] MEDS: FORMOTEROL FUMARATE 20 MCG/2 ML NEB SCH ×2 (09:05→21:00)
[2019-12-11] MEDS ORDERED: Bisacodyl 10 MG SUPP PR PRN (20:37)
[2019-12-11] MEDS ORDERED: Fleet Enema 133 ML BOT PR SCH (20:45)
[2019-12-11] MEDS: Rosuvastatin 10 MG TAB PO SCH (20:47)
[2019-12-12] MEDS: Multivit, Therapeutic 1 TAB PO SCH (08:37)
[2019-12-12] MEDS: Potassium Chloride 20 MEQ TAB PO SCH ×2 (08:37→17:31)
[2019-12-12] MEDS: Polyethylene Glycol 3350 17 GM Packet PO SCH (08:37)
[2019-12-12] MEDS: Loratadine 10 MG TAB PO SCH (08:37)
[2019-12-12] MEDS: Docusate 100 MG CAP PO PRN (08:37)
[2019-12-12] MEDS: Aspirin 325 MG TAB PO SCH (08:37)
[2019-12-12] MEDS: FORMOTEROL FUMARATE 20 MCG/2 ML NEB SCH ×2 (08:39→18:08)
[2019-12-12] MEDS: Budesonide 0.5 MG/2 ML NEB NEB SCH (08:40)
[2019-12-12] MEDS: REVEFENACIN 175 MCG/3 ML NEB SCH (08:45)
[2019-12-12] MEDS ORDERED: FORMOTEROL FUMARATE 20 MCG/2 ML NEB SCH (19:00)
[2019-12-12] MEDS: Rosuvastatin 10 MG TAB PO SCH (21:19)
[2019-12-13] MEDS: Albuterol Sulfate 2.5 mg/3 ml Neb NEB PRN (01:20)
[2019-12-13] MEDS: Budesonide 0.5 MG/2 ML NEB NEB SCH (06:24)
[2019-12-13] MEDS: FORMOTEROL FUMARATE 20 MCG/2 ML NEB SCH (07:05)
[2019-12-13] MEDS: Polyethylene Glycol 3350 17 GM Packet PO SCH (09:31)
[2019-12-13] MEDS: Potassium Chloride 20 MEQ TAB PO SCH ×2 (09:31→17:17)
[2019-12-13] MEDS: Aspirin 325 MG TAB PO SCH (09:32)
[2019-12-13] MEDS: Multivit, Therapeutic 1 TAB PO SCH (09:32)
[2019-12-13] MEDS: Loratadine 10 MG TAB PO SCH (09:32)
[2019-12-13] MEDS: Docusate 100 MG CAP PO PRN (09:32)
[2019-12-13] MEDS: REVEFENACIN 175 MCG/3 ML NEB SCH (09:41)
[2019-12-13] MEDS: Arformoterol 15 MCG/2 ML NEB NEB SCH (18:35)
[2019-12-13] MEDS: Rosuvastatin 10 MG TAB PO SCH (19:59)
[2019-12-14] MEDS: Albuterol Sulfate 2.5 mg/3 ml Neb NEB PRN (00:07)
[2019-12-14] MEDS: Budesonide 0.5 MG/2 ML NEB NEB SCH (05:54)
[2019-12-14] MEDS: Arformoterol 15 MCG/2 ML NEB NEB SCH ×2 (06:02→17:58)
[2019-12-14] MEDS: Loratadine 10 MG TAB PO SCH (08:32)
[2019-12-14] MEDS: Multivit, Therapeutic 1 TAB PO SCH (08:33)
[2019-12-14] MEDS: Potassium Chloride 20 MEQ TAB PO SCH ×2 (08:33→17:57)
[2019-12-14] MEDS: Aspirin 325 MG TAB PO SCH (08:33)
[2019-12-14] MEDS: Polyethylene Glycol 3350 17 GM Packet PO SCH (08:34)
[2019-12-14] MEDS: REVEFENACIN 175 MCG/3 ML NEB SCH (09:40)
[2019-12-14] MEDS: Rosuvastatin 10 MG TAB PO SCH (20:21)
[2019-12-15] MEDS: Arformoterol 15 MCG/2 ML NEB NEB SCH ×2 (05:58→19:58)
[2019-12-15] MEDS: Budesonide 0.5 MG/2 ML NEB NEB SCH (05:59)
[2019-12-15] MEDS: Multivit, Therapeutic 1 TAB PO SCH (08:32)
[2019-12-15] MEDS: Potassium Chloride 20 MEQ TAB PO SCH ×2 (08:32→17:30)
[2019-12-15] MEDS: Docusate 100 MG CAP PO PRN (08:33)
[2019-12-15] MEDS: Polyethylene Glycol 3350 17 GM Packet PO SCH (08:33)
[2019-12-15] MEDS: Loratadine 10 MG TAB PO SCH (08:33)
[2019-12-15] MEDS: Aspirin 325 MG TAB PO SCH (08:33)
[2019-12-15] MEDS: REVEFENACIN 175 MCG/3 ML NEB SCH (08:38)
[2019-12-15] MEDS: Albuterol Sulfate 2.5 mg/3 ml Neb NEB PRN (13:15)
[2019-12-15] MEDS: Rosuvastatin 10 MG TAB PO SCH (19:59)
[2019-12-16] MEDS: Budesonide 0.5 MG/2 ML NEB NEB SCH (05:57)
[2019-12-16] MEDS: Arformoterol 15 MCG/2 ML NEB NEB SCH ×2 (05:58→18:54)
[2019-12-16] MEDS: Polyethylene Glycol 3350 17 GM Packet PO SCH (08:42)
[2019-12-16] MEDS: Aspirin 325 MG TAB PO SCH (08:42)
[2019-12-16] MEDS: Loratadine 10 MG TAB PO SCH (08:43)
[2019-12-16] MEDS: Potassium Chloride 20 MEQ TAB PO SCH (08:43)
[2019-12-16] MEDS: Multivit, Therapeutic 1 TAB PO SCH (08:44)
[2019-12-16] MEDS: REVEFENACIN 175 MCG/3 ML NEB SCH (10:54)
[2019-12-16] MEDS: Albuterol Sulfate 2.5 mg/3 ml Neb NEB PRN ×2 (12:49→20:49)
[2019-12-16 13:25] LABS: #Basophils 0.1 thou/uL (0.0-0.2); #Eosinphils 0.2 thou/uL (0.0-0.7); #Lymphocytes 1.2 thou/uL (1.20-3.40); #Monocytes 0.6 thou/uL (0.11-0.59); #Neutrophils 4.8 thou/uL (1.40-6.50); %Basophils 1.3 % (0.0-1.0); %Lymphocytes 17.8 % (21.0-51.0); %Monocytes 8.6 % (0.0-10.0); %Neutrophils 69.3 % (42.0-75.0); Hemoglobin 11.6 g/dL (12.0-16.0); Mean Corpuscular HGB CONC 29.6 g/dL (32.0-36.0); Mean Corpuscular Hemoglobin 28.9 pg (27.0-31.0); Mean Corpuscular Volume 97.9 fL (78.0-98.0); Mean Platelet Volume 7.3 fL (7.4-10.4); Platelet Count 229 thou/uL (130-400); RBC Distribution Width 14.4 % (11.5-14.5); Red Blood Cell (RBC) Count 3.99 mill/uL (4.20-5.40); White Blood Cell (WBC) Count 6.9 thou/uL (4.8-10.8)
[2019-12-16 13:38] LABS: Anion Gap 13 mmol/L (10-20); BUN (Urea Nitrogen) 28 mg/dL (9.8-20.1); Calc. Creatinine Clearance 21 mL/min (70-130); Calcium 9.5 mg/dL (7.8-10.44); Carbon Dioxide 26 mmol/L (23-31); Chloride 101 mmol/L (98-107); Estimated GFR-MDRD 33; Glucose 95 mg/dL (83-110); Potassium 6.1 mmol/L (3.5-5.1); Sodium 134 mmol/L (136-145)
[2019-12-16] MEDS: Rosuvastatin 10 MG TAB PO SCH (20:20)
[2019-12-17 05:15] LABS: Anion Gap 13 mmol/L (10-20); BUN (Urea Nitrogen) 29 mg/dL (9.8-20.1); Calc. Creatinine Clearance 21 mL/min (70-130); Calcium 9.2 mg/dL (7.8-10.44); Carbon Dioxide 28 mmol/L (23-31); Chloride 100 mmol/L (98-107); Estimated GFR-MDRD 33; Glucose 95 mg/dL (83-110); Potassium 5.2 mmol/L (3.5-5.1); Sodium 136 mmol/L (136-145)
[2019-12-17] MEDS: Budesonide 0.5 MG/2 ML NEB NEB SCH (06:01)
[2019-12-17] MEDS: Arformoterol 15 MCG/2 ML NEB NEB SCH ×2 (06:02→18:00)
[2019-12-17] MEDS: REVEFENACIN 175 MCG/3 ML NEB SCH (09:05)
[2019-12-17] MEDS: Aspirin 325 MG TAB PO SCH (09:06)
[2019-12-17] MEDS: Polyethylene Glycol 3350 17 GM Packet PO SCH (09:06)
[2019-12-17] MEDS: Loratadine 10 MG TAB PO SCH (09:06)
[2019-12-17] MEDS: Multivit, Therapeutic 1 TAB PO SCH (09:06)
[2019-12-17] MEDS: Albuterol Sulfate 2.5 mg/3 ml Neb NEB PRN (14:26)
[2019-12-17] MEDS ORDERED: Ipratropium Bromide 2.5 ml Neb ONE (16:26)
[2019-12-17] MEDS: Rosuvastatin 10 MG TAB PO SCH (21:07)
[2019-12-18] MEDS: Budesonide 0.5 MG/2 ML NEB NEB SCH (06:03)
[2019-12-18] MEDS: Arformoterol 15 MCG/2 ML NEB NEB SCH ×2 (06:07→18:04)
[2019-12-18] MEDS: REVEFENACIN 175 MCG/3 ML NEB SCH (08:51)
[2019-12-18] MEDS: Polyethylene Glycol 3350 17 GM Packet PO SCH (08:52)
[2019-12-18] MEDS: Aspirin 325 MG TAB PO SCH (08:52)
[2019-12-18] MEDS: Multivit, Therapeutic 1 TAB PO SCH (08:52)
[2019-12-18] MEDS: Loratadine 10 MG TAB PO SCH (08:52)
[2019-12-18] MEDS: Albuterol Sulfate 2.5 mg/3 ml Neb NEB PRN (15:34)
[2019-12-18] MEDS: Rosuvastatin 10 MG TAB PO SCH (20:45)
[2019-12-18] MEDS: Ipratropium Bromide 2.5 ml Neb NEB PRN (23:35)
[2019-12-19] MEDS: Budesonide 0.5 MG/2 ML NEB NEB SCH (05:57)
[2019-12-19] MEDS: Arformoterol 15 MCG/2 ML NEB NEB SCH ×2 (06:00→17:59)
[2019-12-19] MEDS: REVEFENACIN 175 MCG/3 ML NEB SCH (08:57)
[2019-12-19] MEDS: Polyethylene Glycol 3350 17 GM Packet PO SCH (09:00)
[2019-12-19] MEDS: Aspirin 325 MG TAB PO SCH (09:00)
[2019-12-19] MEDS: Loratadine 10 MG TAB PO SCH (09:00)
[2019-12-19] MEDS: Multivit, Therapeutic 1 TAB PO SCH (09:00)
[2019-12-19] MEDS: Albuterol Sulfate 2.5 mg/3 ml Neb NEB PRN (11:52)
[2019-12-19] MEDS: Ipratropium Bromide 2.5 ml Neb NEB PRN (15:38)
[2019-12-19] MEDS: Rosuvastatin 10 MG TAB PO SCH (20:41)
[2019-12-20] MEDS: Albuterol Sulfate 2.5 mg/3 ml Neb NEB PRN ×2 (00:13→11:37)
[2019-12-20 04:33] LABS: #Basophils 0.1 thou/uL (0.0-0.2); #Eosinphils 0.2 thou/uL (0.0-0.7); #Monocytes 0.7 thou/uL (0.11-0.59); Hemoglobin 10.2 g/dL (12.0-16.0); Platelet Count 220 thou/uL (130-400); White Blood Cell (WBC) Count 7.5 thou/uL (4.8-10.8)
[2019-12-20 04:37] LABS: #Lymphocytes 1.4 thou/uL (1.20-3.40); #Neutrophils 5.1 thou/uL (1.40-6.50); %Basophils 1.4 % (0.0-1.0); %Eosinophils 3.3 % (0.0-10.0); %Monocytes 8.6 % (0.0-10.0); %Neutrophils 67.8 % (42.0-75.0); Mean Corpuscular HGB CONC 29.6 g/dL (32.0-36.0); Mean Corpuscular Hemoglobin 28.5 pg (27.0-31.0); Mean Corpuscular Volume 96.5 fL (78.0-98.0); Mean Platelet Volume 7.6 fL (7.4-10.4); RBC Distribution Width 14.5 % (11.5-14.5); Red Blood Cell (RBC) Count 3.58 mill/uL (4.20-5.40)
[2019-12-20 04:46] LABS: Anion Gap 13 mmol/L (10-20); BUN (Urea Nitrogen) 32 mg/dL (9.8-20.1); Calc. Creatinine Clearance 20 mL/min (70-130); Calcium 9.1 mg/dL (7.8-10.44); Carbon Dioxide 29 mmol/L (23-31); Chloride 100 mmol/L (98-107); Estimated GFR-MDRD 32; Glucose 100 mg/dL (83-110); Potassium 4.5 mmol/L (3.5-5.1); Sodium 137 mmol/L (136-145)
[2019-12-20] MEDS: Budesonide 0.5 MG/2 ML NEB NEB SCH (04:56)
[2019-12-20] MEDS: Arformoterol 15 MCG/2 ML NEB NEB SCH (05:17)
[2019-12-20] MEDS: Polyethylene Glycol 3350 17 GM Packet PO SCH (08:22)
[2019-12-20] MEDS: Aspirin 325 MG TAB PO SCH (08:23)
[2019-12-20] MEDS: Docusate 100 MG CAP PO PRN (08:23)
[2019-12-20] MEDS: REVEFENACIN 175 MCG/3 ML NEB SCH (08:23)
[2019-12-20] MEDS: Loratadine 10 MG TAB PO SCH (08:23)
[2019-12-20] MEDS: Multivit, Therapeutic 1 TAB PO SCH (08:23)
[2019-12-20 14:57] VITALS: BP 116/66; TEMP 97.6
== END 2019-12-20 15:25 | disposition home or self-care (01) | DRG 948 ==
LOC: BURMED 21:15
PROVIDERS: ADMIT Family Medicine; ATTEND Family Medicine
DX: R53.81 Other malaise (principal); I50.42 Chronic combined systolic (congestive) and diastolic (congestive) heart failure; I25.10 Atherosclerotic heart disease of native coronary artery without angina pectoris; J44.9 Chronic obstructive pulmonary disease, unspecified; E78.5 Hyperlipidemia, unspecified; E86.0 Dehydration; I11.0 Hypertensive heart disease with heart failure; Z98.890 Other specified postprocedural states; Z95.810 Presence of automatic (implantable) cardiac defibrillator; Z88.8 Allergy status to other drugs, medicaments and biological substances; Z79.82 Long term (current) use of aspirin
CPT/HCPCS: 36415; 80048; 83880; 85025; J7611; J7626

== ENCOUNTER 2020-01-08 18:04 | Inpatient (IN) | payer MEDICARE, OTHER ==
--- NOTE | 2020-01-08 18:48 | RAD ---
EXAM: Single view of the chest HISTORY: Shortness of breath COMPARISON: 12/08/2019 FINDINGS: Single view of the chest shows an enlarged but stable cardiomediastinal silhouette. The pa cemaker is unchanged in position. Atherosclerotic calcifications are seen in the aorta. There is no evidence of consolidation, mass, or pleural effusion. The bones are unremarkable IMPRESSION: Stable cardiomegaly
[2020-01-08 18:58] LABS: #Basophils 0.1 thou/uL (0.0-0.2); #Eosinphils 0.3 thou/uL (0.0-0.7); #Lymphocytes 1.4 thou/uL (1.20-3.40); #Monocytes 0.6 thou/uL (0.11-0.59); #Neutrophils 4.1 thou/uL (1.40-6.50); %Basophils 1.5 % (0.0-1.0); %Eosinophils 4.3 % (0.0-10.0); %Lymphocytes 21.7 % (21.0-51.0); %Monocytes 9.3 % (0.0-10.0); %Neutrophils 63.2 % (42.0-75.0); Hemoglobin 11.3 g/dL (12.0-16.0); Mean Corpuscular HGB CONC 29.9 g/dL (32.0-36.0); Mean Corpuscular Hemoglobin 29.3 pg (27.0-31.0); Mean Corpuscular Volume 97.9 fL (78.0-98.0); Platelet Count 244 thou/uL (130-400); RBC Distribution Width 15.1 % (11.5-14.5); Red Blood Cell (RBC) Count 3.86 mill/uL (4.20-5.40); White Blood Cell (WBC) Count 6.5 thou/uL (4.8-10.8)
[2020-01-08 19:13] LABS: ALT (SGPT) 19 U/L (8-55); AST (SGOT) 21 U/L (5-34); Albumin 3.3 g/dL (3.4-4.8); Alkaline Phosphatase 94 U/L (40-110); Anion Gap 15 mmol/L (10-20); BUN (Urea Nitrogen) 31 mg/dL (9.8-20.1); Bilirubin, Total 0.2 mg/dL (0.2-1.2); Calc. Creatinine Clearance 0 mL/min (70-130); Calcium 9.7 mg/dL (7.8-10.44); Carbon Dioxide 27 mmol/L (23-31); Chloride 101 mmol/L (98-107); Estimated GFR-MDRD 38; Globulin 3.2 g/dL (2.4-3.5); Glucose 101 mg/dL (83-110); Potassium 4.3 mmol/L (3.5-5.1); Protein, Total 6.5 g/dL (6.0-8.3); Sodium 139 mmol/L (136-145)
[2020-01-08 19:48] LABS: Bilirubin Negative (Negative); Blood, Urine Small (Negative); Clarity Slightly Cloudy (Clear); Glucose, Urine (Dipstick) Negative (Negative); Ketone, Urine Negative (Negative); Leukocyte Trace (Negative); Nitrite Negative (Negative); Protein, Urine (Dipstick) > or equal to 300 mg/dL (Neg-Trace); Specific Gravity, Urine 1.025 (1.005-1.030); Urobilinogen 0.2 mg/dL (Less than 2)
[2020-01-08 19:56] LABS: Bacteria/HPF Rare-Few HPF (None Seen); RBC/HPF 0-3 HPF (0-3); Squamous Epithelial 0-3 HPF (0-3); WBC/HPF 0-3 HPF (0-3)
[2020-01-08 19:57] LABS: Oval Fat Bodies/HPF Rare HPF (None Seen)
[2020-01-08] MEDS ORDERED: cefTRIAXone\\ROCEPHIN 2 GM VIAL ONE (19:57)
[2020-01-08] MEDS ORDERED: Dexamethasone 4 mg/ml Vial ONE (19:57)
[2020-01-08] MEDS ORDERED: Azithromycin 500 MG VIAL ONE (20:17)
[2020-01-08] MEDS ORDERED: Ondansetron ODT 4 MG TAB SL PRN (20:38)
[2020-01-08] MEDS ORDERED: Acetaminophen 325 MG TAB PO PRN ×2 (20:38→23:14)
[2020-01-08] MEDS ORDERED: Ondansetron PF 4 MG/2 ML Vial IVP PRN (20:38)
[2020-01-08] MEDS ORDERED: Albuterol Sulfate 2.5 mg/3 ml Neb NEB PRN ×2 (20:41→23:14)
[2020-01-08] MEDS ORDERED: Docusate 100 MG CAP PO PRN (23:14)
[2020-01-08] MEDS ORDERED: Milk Of Magnesia 30 ML UDCUP PO PRN (23:14)
[2020-01-08] MEDS ORDERED: Furosemide 20 MG TAB PO PRN (23:14)
[2020-01-09] MEDS ORDERED: REVEFENACIN 175 MCG/3 ML INH SCH (09:00)
[2020-01-09] MEDS: Aspirin 325 mg Enteric Coated Tablet PO SCH (09:59)
[2020-01-09] MEDS: Dexamethasone 4 MG TAB PO SCH (09:59)
[2020-01-09] MEDS: Loratadine 10 MG TAB PO SCH (09:59)
[2020-01-09] MEDS: Multivitamin W/ Minerals 1 TAB PO SCH (09:59)
[2020-01-09] MEDS: Polyethylene Glycol 3350 17 GM Packet PO SCH (10:00)
[2020-01-09] MEDS: Arformoterol 15 MCG/2 ML NEB NEB SCH ×2 (10:00→21:21)
[2020-01-09] MEDS: Budesonide 0.5 MG/2 ML NEB NEB SCH ×2 (10:01→21:19)
[2020-01-09] MEDS ORDERED: cefTRIAXone\\ROCEPHIN 1 GM in Sodium Chloride 0.9% 100 ML IVPB SCH (18:00)
[2020-01-09] MEDS: Rosuvastatin 10 MG TAB PO SCH (21:18)
[2020-01-09] MEDS: Azithromycin 250 MG TAB PO SCH (21:19)
[2020-01-10] MEDS: Dexamethasone 4 MG TAB PO SCH (08:41)
[2020-01-10] MEDS: Multivitamin W/ Minerals 1 TAB PO SCH (08:41)
[2020-01-10] MEDS: Loratadine 10 MG TAB PO SCH (08:42)
[2020-01-10] MEDS: Aspirin 325 mg Enteric Coated Tablet PO SCH (08:42)
[2020-01-10] MEDS: Budesonide 0.5 MG/2 ML NEB NEB SCH ×2 (08:44→20:36)
[2020-01-10] MEDS: Arformoterol 15 MCG/2 ML NEB NEB SCH ×2 (08:44→20:37)
[2020-01-10] MEDS: Polyethylene Glycol 3350 17 GM Packet PO SCH (08:46)
--- NOTE | 2020-01-10 15:05 | HP ---
HISTORY OF PRESENT ILLNESS: An 89-year-old female who presented to the emergency room early evening on 01/08/2020 with complaints of dyspnea, difficulty breathing. She has a known history of COPD and CHF. She reported that she was unable to tolerate her nebulizer treatment at home just prior to arrival. She arrived per EMS, and was given oxygen and 2 g of IV magnesium sulfate en route. Initial blood pressure upon arrival was 188/98. Her blood pressure normalized shortly after arrival and she was given nebulized albuterol treatments, IV steroid and started on antibiotics. She initially refused COVID testing, but later agreed during my initial evaluation. Labs in the ER included BNP of 275. Her CBC and comprehensive metabolic profile were within normal range, initial troponin was negative. Chest x-ray was also negative except mild cardiomegaly; no evidence of vascular congestion. She does have implantable AICD/pacemaker. PAST MEDICAL HISTORY: Mild coronary artery disease, nonischemic cardiomyopathy , CHF, pEF last Echo of record 07/06/16 showed Grade I diastolic dysfunction, hypertension, COPD, hyperlipidemia, former smoker. PAST SURGICAL HISTORY: AICD placement with pacemaker, hernia repair, and cardiac catheterization. ALLERGIES: THE PATIENT IS ALLERGIC TO TESSALON PERLES. CURRENT HOME MEDICATIONS: 1. Albuterol inhaler 2.5 mg. 2. Albuterol sulfate nebulization. 3. Brovana 15 mcg b.i.d. 4. Metoprolol 25 mg XL daily. 5. Ranexa 500 mg t.i.d. 6. Colace 100 mg b.i.d. p.r.n. constipation. 7. MiraLAX 1 dose daily p.r.n. constipation. 8. Crestor 40 mg. 9. Multivitamin with iron one daily. 10. Lasix 20 mg daily. 11. Aspirin 325 mg daily. 12. Loratadine 10 mg daily. 13. Home Oxygen prn SOCIAL HISTORY: The patient is a former smoker. She resides at home alone. Her son lives nearby and is her primary caregiver. She is the mother of 10 children , 8 still living. FAMILY HISTORY: Negative for premature coronary artery disease. Father of dementia. REVIEW OF SYSTEMS: Negative 10-point review of systems at the time of the interviewing. LABORATORY FINDINGS: See HPI. PHYSICAL EXAMINATION: VITAL SIGNS: Temperature 98.8, heart rate 64, respirations 20, O2 saturations 96% on 2 L per nasal cannula, blood pressure 110/76. GENERAL: Alert, oriented x4, appropriate, pale elderly female. HEENT: Atraumatic, normocephalic. Sclerae anicteric. Moist mucous membranes. No oral lesions. NECK: Supple. No JVD or carotid bruits. LUNGS: Left lower lobe crackles partially clear with cough. Respirations are unlabored. Good air entry bilaterally. HEART: Normal S1 and S2. No murmur or ectopy. ABDOMEN: Soft, nontender. Bowel sounds present in all blue. EXTREMITIES: No edema or calf tenderness. 2+ pedal pulses. NEUROLOGIC: CN 2 through 12 grossly intact. Normal motor function. SKIN: Warm and intact without rash. IMPRESSION: Chronic obstructive pulmonary disease versus congestive heart failure exacerbation, possible combined. PLAN: Continue nebulized albuterol, IV dexamethasone 6 mg p.o. daily, ceftriaxone 1 g IV once daily, azithromycin 250 mg p.o. daily x4. Continue all other home medications budesonide 0.5 mg nebulizer b.i.d. and acetaminophen p.r.n. fever, headache, joint pain. COVID testing per admission screening guideline with the patient's permission. Consider IV Lasix 1-2 doses for possible CHF exacerbation. Job ID: [id number] MTDD
[2020-01-10 15:08] LABS: SARS-CoV-2 MS2 Positive; SARS-CoV-2 N Gene Negative; SARS-CoV-2 S Gene Negative; SARS-CoV-2 by NAA Not Detected (NotDetected); SARS-CoV-2 orf1ab Negative
[2020-01-10] MEDS ORDERED: REVEFENACIN 175 MCG/3 ML INH SCH (20:00)
[2020-01-10] MEDS: Rosuvastatin 10 MG TAB PO SCH (20:37)
[2020-01-10] MEDS: Azithromycin 250 MG TAB PO SCH (20:38)
[2020-01-11 05:25] LABS: #Basophils 0.1 thou/uL (0.0-0.2); #Lymphocytes 0.9 thou/uL (1.20-3.40); #Monocytes 0.6 thou/uL (0.11-0.59); #Neutrophils 7.8 thou/uL (1.40-6.50); %Basophils 0.6 % (0.0-1.0); %Eosinophils 0.1 % (0.0-10.0); %Lymphocytes 9.2 % (21.0-51.0); %Monocytes 6.8 % (0.0-10.0); %Neutrophils 83.3 % (42.0-75.0); Hemoglobin 10.2 g/dL (12.0-16.0); Mean Corpuscular HGB CONC 30.6 g/dL (32.0-36.0); Mean Corpuscular Hemoglobin 28.9 pg (27.0-31.0); Mean Corpuscular Volume 94.7 fL (78.0-98.0); Mean Platelet Volume 7.1 fL (7.4-10.4); Platelet Count 209 thou/uL (130-400); Red Blood Cell (RBC) Count 3.52 mill/uL (4.20-5.40); White Blood Cell (WBC) Count 9.3 thou/uL (4.8-10.8)
[2020-01-11 05:36] LABS: ALT (SGPT) 26 U/L (8-55); AST (SGOT) 30 U/L (5-34); Alkaline Phosphatase 81 U/L (40-110); Anion Gap 13 mmol/L (10-20); BUN (Urea Nitrogen) 40 mg/dL (9.8-20.1); Bilirubin, Total Less than 0.2 mg/dL (0.2-1.2); Calc. Creatinine Clearance 24 mL/min (70-130); Carbon Dioxide 28 mmol/L (23-31); Chloride 102 mmol/L (98-107); Estimated GFR-MDRD 41; Globulin 2.6 g/dL (2.4-3.5); Glucose 110 mg/dL (83-110); Potassium 4.7 mmol/L (3.5-5.1); Protein, Total 5.6 g/dL (6.0-8.3); Sodium 138 mmol/L (136-145)
[2020-01-11] MEDS: Dexamethasone 4 MG TAB PO SCH (09:51)
[2020-01-11] MEDS: Loratadine 10 MG TAB PO SCH (09:51)
[2020-01-11] MEDS: Multivitamin W/ Minerals 1 TAB PO SCH (09:52)
[2020-01-11] MEDS: Aspirin 325 mg Enteric Coated Tablet PO SCH (09:52)
[2020-01-11] MEDS: Polyethylene Glycol 3350 17 GM Packet PO SCH (09:53)
[2020-01-11] MEDS: Budesonide 0.5 MG/2 ML NEB NEB SCH (10:01)
[2020-01-11] MEDS: Arformoterol 15 MCG/2 ML NEB NEB SCH (10:03)
--- NOTE | 2020-01-11 13:26 | DIS ---
DATE OF ADMISSION: 01/08/2020 DATE OF DISCHARGE: 01/11/2020 ADMISSION DIAGNOSIS: Chronic obstructive pulmonary disease exacerbation. SECONDARY DIAGNOSES: Diastolic congestive heart failure, hypertension, dyslipidemia, and one of two positive blood culture. PROCEDURES: 01/08/2020, chest x-ray showed stable cardiomegaly and no evidence of consolidation, mass, or pleural effusion. HOSPITAL COURSE: This is an 89-year-old female with underlying history of oxygen-dependent COPD for which she is on continuous supplemental oxygen at 2 L at home, who presented to the [facility] Emergency Department via EMS secondary to complaints of dyspnea. She did receive IV magnesium en route and subsequently had further workup in the emergency department. She was COVID tested and this did return negative. Her labs were reassuring. However, secondary to underlying COPD and associated dyspnea, she was admitted for COPD exacerbation. She was started empirically on IV Rocephin, p.o. azithromycin and dexamethasone and continued on her usual supplemental oxygen and nebulized treatments. Although she does have a history of diastolic CHF, she displayed no volume overload per physical exam and chest x-ray and had only a mild BNP level of 275, thus she did not require IV diuresis. The patient's blood culture did return one of two positive with presumptive micrococcus and this is felt to be a likely skin contaminant. Her labs were trended during her stay and she had no leukocytosis; she also remained afebrile during her stay. Her respiratory status did return back to baseline and her antibiotics have been discontinued secondary to reassuring chest x-ray, lack of fever and no leukocytosis. On physical exam, her lung blue are clear and she is back to her respiratory baseline and amenable to discharge home. DISPOSITION: The patient will discharge home and may follow up with her primary care provider, Dr. Merida in approximately 1 week. She does have home oxygen. DISCHARGE MEDICATIONS: She will resume all of her usual medications with only one new medicine being dexamethasone 6 mg p.o. daily x5 days. Job ID: [id number]
[2020-01-11 13:40] VITALS: BP 160/90; TEMP 97.7
== END 2020-01-11 14:05 | disposition home or self-care (01) | DRG 191 ==
LOC: BURERS 18:04 → BURMED 20:10
PROVIDERS: ADMIT Family Medicine; ATTEND Family Medicine
DX: J44.1 Chronic obstructive pulmonary disease with (acute) exacerbation (principal); I50.32 Chronic diastolic (congestive) heart failure; I42.8 Other cardiomyopathies; I13.0 Hypertensive heart and chronic kidney disease with heart failure and stage 1 through stage 4 chronic kidney disease, or unspecified chronic kidney disease; E78.5 Hyperlipidemia, unspecified; N18.9 Chronic kidney disease, unspecified; I25.10 Atherosclerotic heart disease of native coronary artery without angina pectoris; Z95.810 Presence of automatic (implantable) cardiac defibrillator; Z87.891 Personal history of nicotine dependence; Z99.81 Dependence on supplemental oxygen; Z90.49 Acquired absence of other specified parts of digestive tract
CPT/HCPCS: 36415; 71045; 80053; 81003; 81015; 83605; 83880; 84484; 85025; 87040; 87086; 87149; 87635; 94640; 94760; 96365; 96375; J0456; J0696; J1100; J3490; J7620; J7626; J8540; U0003

== ENCOUNTER 2020-02-20 06:55 | Emergency (ER) | payer MEDICARE ==
[2020-02-20 07:46] LABS: #Basophils 0.1 thou/uL (0.0-0.2); #Eosinphils 0.2 thou/uL (0.0-0.7); #Lymphocytes 1.1 thou/uL (1.20-3.40); #Monocytes 0.6 thou/uL (0.11-0.59); #Neutrophils 5.1 thou/uL (1.40-6.50); %Basophils 1.5 % (0.0-1.0); %Eosinophils 2.7 % (0.0-10.0); %Lymphocytes 15.1 % (21.0-51.0); %Monocytes 8.2 % (0.0-10.0); %Neutrophils 72.5 % (42.0-75.0); Hemoglobin 11.5 g/dL (12.0-16.0); Mean Corpuscular HGB CONC 30.7 g/dL (32.0-36.0); Mean Corpuscular Hemoglobin 30.3 pg (27.0-31.0); Mean Corpuscular Volume 98.7 fL (78.0-98.0); Mean Platelet Volume 7.3 fL (7.4-10.4); Platelet Count 235 thou/uL (130-400); RBC Distribution Width 15.4 % (11.5-14.5); Red Blood Cell (RBC) Count 3.78 mill/uL (4.20-5.40); White Blood Cell (WBC) Count 7.1 thou/uL (4.8-10.8)
[2020-02-20] MEDS ORDERED: methylPREDNISolone Sod Succ/PF 125 MG/2 ML VIAL ONE (07:49)
[2020-02-20 08:02] LABS: ALT (SGPT) 14 U/L (8-55); AST (SGOT) 23 U/L (5-34); Albumin 3.2 g/dL (3.4-4.8); Alkaline Phosphatase 98 U/L (40-110); Anion Gap 16 mmol/L (10-20); BUN (Urea Nitrogen) 26 mg/dL (9.8-20.1); Bilirubin, Total Less than 0.2 mg/dL (0.2-1.2); Calc. Creatinine Clearance 0 mL/min (70-130); Calcium 9.3 mg/dL (7.8-10.44); Carbon Dioxide 30 mmol/L (23-31); Chloride 102 mmol/L (98-107); Estimated GFR-MDRD 39; Glucose 97 mg/dL (83-110); Potassium 4.7 mmol/L (3.5-5.1); Protein, Total 6.2 g/dL (6.0-8.3); Sodium 143 mmol/L (136-145)
--- NOTE | 2020-02-20 19:39 | RAD ---
PORTABLE CHEST: Date: 02-20-2020 An AP portable film at 0745 is compared with an 01-08-20 study. FINDINGS: While there is still some right basilar haziness, it is less than was present in January. The left bas e seems similar. No new infiltrates were detected. There is no congestion of the upper lobe vessels. Mild cardiomegaly is about the same as usual, as is hyperinflation of the lungs. The AICD remains in place. IMPRESSION: Chronic changes, similar to 01-08-20, but perhaps a little less haziness in the right base than before. POS: HOME
== END 2020-02-20 08:25 | disposition home or self-care (01) ==
LOC: BURERS 06:55
DX: J44.1 Chronic obstructive pulmonary disease with (acute) exacerbation (principal); E78.5 Hyperlipidemia, unspecified; E78.00 Pure hypercholesterolemia, unspecified; I10 Essential (primary) hypertension; Z87.891 Personal history of nicotine dependence
CPT/HCPCS: 71045; 80053; 83880; 84484; 85025; 93005; 96374; J2930; J7620

== ENCOUNTER 2020-10-19 17:50 | Emergency (ER) | payer MEDICARE ==
[~2020-10-19 17:50] MED LIST changes: -Acetaminophen 325 MG TAB PO PRN; -Furosemide 20 MG TAB PO PRN; +Iopamidol 370 76% 100 ML VIAL ONE; -Rosuvastatin 10 MG TAB PO SCH; -Senokot S 8.6-50 MG TAB PO PRN
[2020-10-19 18:57] LABS: #Basophils 0.1 thou/uL (0.0-0.2); #Eosinphils 0.1 thou/uL (0.0-0.7); #Lymphocytes 1.4 thou/uL (1.20-3.40); #Monocytes 0.6 thou/uL (0.11-0.59); #Neutrophils 2.9 thou/uL (1.40-6.50); %Basophils 1.2 % (0.0-1.0); %Eosinophils 2.3 % (0.0-10.0); %Lymphocytes 27.6 % (21.0-51.0); %Monocytes 12.2 % (0.0-10.0); %Neutrophils 56.7 % (42.0-75.0); Hemoglobin 12.6 g/dL (12.0-16.0); Mean Corpuscular HGB CONC 30.9 g/dL (32.0-36.0); Mean Corpuscular Hemoglobin 30.5 pg (27.0-31.0); Mean Corpuscular Volume 98.7 fL (78.0-98.0); Mean Platelet Volume 7.1 fL (7.4-10.4); Platelet Count 211 thou/uL (130-400); RBC Distribution Width 13.3 % (11.5-14.5); Red Blood Cell (RBC) Count 4.13 mill/uL (4.20-5.40); White Blood Cell (WBC) Count 5.2 thou/uL (4.8-10.8)
[2020-10-19 18:58] LABS: ALT (SGPT) 23 U/L (8-55); AST (SGOT) 30 U/L (5-34); Albumin 3.1 g/dL (3.4-4.8); Alkaline Phosphatase 95 U/L (40-110); Anion Gap 11 mmol/L (10-20); BUN (Urea Nitrogen) 26 mg/dL (9.8-20.1); Bilirubin, Total Less than 0.2 mg/dL (0.2-1.2); Calc. Creatinine Clearance 0 mL/min (70-130); Calcium 9.5 mg/dL (7.8-10.44); Carbon Dioxide 35 mmol/L (23-31); Chloride 102 mmol/L (98-107); Globulin 2.8 g/dL (2.4-3.5); Glucose 101 mg/dL (83-110); Lipase 44 U/L (8-78); Potassium 4.3 mmol/L (3.5-5.1); Protein, Total 5.9 g/dL (5.8-8.1); Sodium 144 mmol/L (136-145)
[2020-10-19 19:00] LABS: Bilirubin Negative (Negative); Blood, Urine Trace (Negative); Clarity Clear (Clear); Glucose, Urine (Dipstick) Negative (Negative); Ketone, Urine Negative (Negative); Leukocyte Negative (Negative); Nitrite Negative (Negative); Protein, Urine (Dipstick) > or equal to 300 mg/dL (Neg-Trace); Specific Gravity, Urine 1.025 (1.005-1.030); Urobilinogen 0.2 mg/dL (Less than 2); pH, Urine 6.5 (5.0-9.0)
[2020-10-19 19:40] LABS: Bacteria/HPF Rare-Few HPF (None Seen); RBC/HPF 0-3 HPF (0-3); Renal Epithelial 0-3 HPF (None Seen); Squamous Epithelial 0-3 HPF (0-3); WBC/HPF 0-3 HPF (0-3)
== END 2020-10-19 21:00 | disposition home or self-care (01) ==
LOC: BURERS 17:50
DX: K59.00 Constipation, unspecified (principal); E78.5 Hyperlipidemia, unspecified; E78.00 Pure hypercholesterolemia, unspecified; I11.0 Hypertensive heart disease with heart failure; I50.9 Heart failure, unspecified; J44.9 Chronic obstructive pulmonary disease, unspecified; I25.10 Atherosclerotic heart disease of native coronary artery without angina pectoris; Z87.891 Personal history of nicotine dependence; Z79.82 Long term (current) use of aspirin
CPT/HCPCS: 51701; 71045; 74177; 80053; 81003; 81015; 83605; 83690; 85025; 93005; Q9967

== ENCOUNTER 2021-01-09 06:28 | Emergency (ER) | payer MEDICARE ==
[2021-01-09 07:01] LABS: Bilirubin Negative (Negative); Blood, Urine Small (Negative); Clarity Clear (Clear); Glucose, Urine (Dipstick) Negative (Negative); Ketone, Urine Negative (Negative); Leukocyte Negative (Negative); Nitrite Negative (Negative); Protein, Urine (Dipstick) > or equal to 300 mg/dL (Neg-Trace); Specific Gravity, Urine 1.025 (1.005-1.030); Urobilinogen 0.2 mg/dL (Less than 2); pH, Urine 8.5 (5.0-9.0)
[2021-01-09 07:03] LABS: Bacteria/HPF None Seen HPF (None Seen); Squamous Epithelial 0-3 HPF (0-3); WBC/HPF None Seen HPF (0-3)
== END 2021-01-09 07:55 | disposition home or self-care (01) ==
LOC: BURERS 06:28
DX: R32 Unspecified urinary incontinence (principal); E78.5 Hyperlipidemia, unspecified; I11.0 Hypertensive heart disease with heart failure; I50.9 Heart failure, unspecified; J44.9 Chronic obstructive pulmonary disease, unspecified; Z87.891 Personal history of nicotine dependence; Z79.899 Other long term (current) drug therapy
CPT/HCPCS: 51701; 81003; 81015

== ENCOUNTER 2021-01-21 17:45 | Observation (INO) | payer MEDICARE ==
[2021-01-21 18:18] LABS: #Basophils 0.1 thou/uL (0.0-0.2); #Eosinphils 0.1 thou/uL (0.0-0.7); #Lymphocytes 1.6 thou/uL (1.20-3.40); #Neutrophils 5.4 thou/uL (1.40-6.50); %Basophils 1.2 % (0.0-1.0); %Eosinophils 1.1 % (0.0-10.0); %Lymphocytes 19.3 % (21.0-51.0); %Monocytes 12.5 % (0.0-10.0); %Neutrophils 65.9 % (42.0-75.0); Hemoglobin 11.8 g/dL (12.0-16.0); Mean Corpuscular HGB CONC 30.7 g/dL (32.0-36.0); Mean Corpuscular Hemoglobin 30.8 pg (27.0-31.0); Mean Platelet Volume 7.4 fL (7.4-10.4); Platelet Count 219 thou/uL (130-400); RBC Distribution Width 13.8 % (11.5-14.5); Red Blood Cell (RBC) Count 3.85 mill/uL (4.20-5.40); White Blood Cell (WBC) Count 8.1 thou/uL (4.8-10.8)
[2021-01-21 18:37] LABS: ALT (SGPT) 16 U/L (8-55); AST (SGOT) 23 U/L (5-34); Alkaline Phosphatase 77 U/L (40-110); Anion Gap 12 mmol/L (10-20); BUN (Urea Nitrogen) 32 mg/dL (9.8-20.1); Bilirubin, Total Less than 0.2 mg/dL (0.2-1.2); Calc. Creatinine Clearance 0 mL/min (70-130); Calcium 9.5 mg/dL (7.8-10.44); Carbon Dioxide 35 mmol/L (23-31); Chloride 99 mmol/L (98-107); Globulin 2.8 g/dL (2.4-3.5); Glucose 104 mg/dL (83-110); Potassium 4.1 mmol/L (3.5-5.1); Protein, Total 5.8 g/dL (5.8-8.1); Sodium 142 mmol/L (136-145)
[2021-01-21] MEDS ORDERED: methylPREDNISolone Sod Succ/PF 125 MG/2 ML VIAL ONE (19:16)
[2021-01-21] MEDS ORDERED: Aspirin 325 MG TAB ONE (19:16)
[2021-01-21] MEDS ORDERED: Furosemide 40 MG/4 ML VIAL ONE (19:16)
[2021-01-21] MEDS ORDERED: Nitroglycerin 2% Ointment 1 INCH/1 GM Packet ONE (19:16)
[2021-01-21 20:57] LABS: SARS-CoV-2 NAA Rapid Test Not Detected (NotDetected)
[2021-01-21 23:35] VITALS: BMI 21.4
[2021-01-21] MEDS ORDERED: Acetaminophen 500 MG TAB PO PRN (23:36)
[2021-01-21] MEDS ORDERED: Ondansetron PF 4 MG/2 ML Vial IVP PRN (23:37)
[2021-01-22 05:47] LABS: Anion Gap 12 mmol/L (10-20); BUN (Urea Nitrogen) 33 mg/dL (9.8-20.1); Calc. Creatinine Clearance 22 mL/min (70-130); Carbon Dioxide 31 mmol/L (23-31); Chloride 103 mmol/L (98-107); Glucose 163 mg/dL (83-110); Potassium 3.9 mmol/L (3.5-5.1); Sodium 142 mmol/L (136-145)
[2021-01-22] MEDS: methylPREDNISolone Sod Succ 40 MG VIAL IVP SCH ×3 (05:50→21:36)
[2021-01-22] MEDS ORDERED: Milk Of Magnesia 30 ML UDCUP PO PRN (07:38)
[2021-01-22] MEDS ORDERED: Docusate 100 MG CAP PO PRN (07:38)
[2021-01-22] MEDS ORDERED: Loratadine 10 MG TAB PO PRN (07:38)
[2021-01-22] MEDS ORDERED: Acetaminophen 325 MG TAB PO PRN (07:38)
[2021-01-22] MEDS ORDERED: Potassium Chloride 20 MEQ TAB PO SCH ×2 (08:00→09:00)
[2021-01-22] MEDS ORDERED: Aspirin 325 MG TAB PO SCH (08:00)
[2021-01-22] MEDS ORDERED: BUDESONIDE 0.25 MG/2 ML INH SCH (09:00)
[2021-01-22] MEDS ORDERED: YUPELRI 175 MCG/3 ML NEB SCH (09:00)
[2021-01-22] MEDS ORDERED: Revefenacin [Yupelri] 175 MCG/3 ML Vial.Neb NEB SCH (09:00)
[2021-01-22] MEDS ORDERED: Polyethylene Glycol 3350 17 GM Packet PO SCH (09:00)
[2021-01-22] MEDS ORDERED: FORMOTEROL FUMARATE 20 MCG/2 ML IH SCH (09:00)
[2021-01-22] MEDS ORDERED: Arformoterol 15 MCG/2 ML NEB NEB SCH (09:00)
[2021-01-22] MEDS ORDERED: Budesonide 0.5 MG/2 ML NEB NEB SCH ×2 (09:00→19:00)
[2021-01-22] MEDS ORDERED: MULTIVITAMIN PO SCH (09:00)
[2021-01-22] MEDS ORDERED: Non-Formulary Item 1 EACH (Revefenacin [Yupelri] 175 MCG/3 ML Vial.Neb) INH SCH (09:00)
[2021-01-22] MEDS: Multivit, Therapeutic 1 TAB PO SCH (09:42)
[2021-01-22] MEDS: Furosemide 20 MG/2 ML VIAL SLOW IVP SCH ×2 (09:47→21:36)
[2021-01-22] MEDS: Polyethylene Glycol 3350 17 GM Packet PO SCH (14:31)
[2021-01-22] MEDS: Aspirin 325 MG TAB PO SCH (14:31)
[2021-01-22] MEDS: Arformoterol 15 MCG/2 ML NEB NEB SCH (18:25)
[2021-01-22] MEDS: Budesonide 0.5 MG/2 ML NEB NEB SCH (18:41)
[2021-01-22] MEDS ORDERED: FORMOTEROL FUMARATE 20 MCG/2 ML INH SCH (19:00)
[2021-01-22] MEDS ORDERED: Non-Formulary Item 1 EACH (Rosuvastatin Calcium [Rosuvastatin Calcium] 40 MG Tablet) PO SCH (21:00)
[2021-01-22] MEDS ORDERED: Lisinopril 10 MG TAB PO SCH ×2 (21:00)
[2021-01-22] MEDS ORDERED: Rosuvastatin 10 MG TAB PO SCH ×2 (21:00)
[2021-01-23] MEDS: methylPREDNISolone Sod Succ 40 MG VIAL IVP SCH (06:04)
[2021-01-23 06:05] LABS: Anion Gap 12 mmol/L (10-20); BUN (Urea Nitrogen) 42 mg/dL (9.8-20.1); Calc. Creatinine Clearance 21 mL/min (70-130); Carbon Dioxide 32 mmol/L (23-31); Chloride 101 mmol/L (98-107); Glucose 162 mg/dL (83-110); Potassium 4.4 mmol/L (3.5-5.1); Sodium 141 mmol/L (136-145)
[2021-01-23] MEDS: Budesonide 0.5 MG/2 ML NEB NEB SCH (06:10)
[2021-01-23] MEDS: Arformoterol 15 MCG/2 ML NEB NEB SCH (06:11)
[2021-01-23] MEDS ORDERED: predniSONE 20 MG TAB PO SCH (08:00)
[2021-01-23] MEDS ORDERED: Revefenacin [Yupelri] 175 MCG/3 ML Vial.Neb NEB SCH (09:00)
[2021-01-23] MEDS: Aspirin 325 MG TAB PO SCH (09:36)
[2021-01-23] MEDS: Polyethylene Glycol 3350 17 GM Packet PO SCH (09:36)
[2021-01-23] MEDS: Multivit, Therapeutic 1 TAB PO SCH (09:36)
[2021-01-23 14:55] VITALS: BP 122/69; TEMP 98.8
== END 2021-01-23 16:20 | disposition swing bed, planned readmission (89) ==
LOC: BURERS 17:45 → BURMED 20:00 → UNDOADMIN 20:00
PROVIDERS: ADMIT Family Medicine; ATTEND Family Medicine
DX: J44.1 Chronic obstructive pulmonary disease with (acute) exacerbation (principal); I11.0 Hypertensive heart disease with heart failure; I50.9 Heart failure, unspecified; I42.9 Cardiomyopathy, unspecified; E78.5 Hyperlipidemia, unspecified; K59.00 Constipation, unspecified; Z79.82 Long term (current) use of aspirin; Z79.899 Other long term (current) drug therapy; Z88.8 Allergy status to other drugs, medicaments and biological substances; Z95.810 Presence of automatic (implantable) cardiac defibrillator; Z20.822 Contact with and (suspected) exposure to COVID-19
CPT/HCPCS: 36415; 71045; 80048; 80053; 83880; 84484; 85025; 93005; 96374; 96375; 96376; G0378; J1940; J2920; J2930; J7512; J7620; J7626; U0002

== ENCOUNTER 2021-01-23 16:24 | Inpatient (IN) | payer MEDICARE ==
[2021-01-23] MEDS: Docusate 100 MG CAP PO SCH (20:47)
[2021-01-24] MEDS ORDERED: Docusate 100 MG CAP PO PRN (03:57)
[2021-01-24 05:42] LABS: Anion Gap 13 mmol/L (10-20); BUN (Urea Nitrogen) 51 mg/dL (9.8-20.1); Calc. Creatinine Clearance 21 mL/min (70-130); Calcium 8.7 mg/dL (7.8-10.44); Carbon Dioxide 31 mmol/L (23-31); Chloride 102 mmol/L (98-107); Glucose 132 mg/dL (83-110); Potassium 4.5 mmol/L (3.5-5.1); Sodium 141 mmol/L (136-145)
[2021-01-24] MEDS: Budesonide 0.5 MG/2 ML NEB NEB SCH ×2 (06:30→19:33)
[2021-01-24] MEDS: predniSONE 20 MG TAB PO SCH (08:38)
[2021-01-24] MEDS: Aspirin 325 MG TAB PO SCH (08:38)
[2021-01-24] MEDS: Loratadine 10 MG TAB PO SCH (08:38)
[2021-01-24] MEDS: Docusate 100 MG CAP PO SCH ×2 (08:38→21:13)
[2021-01-24] MEDS: FORMOTEROL FUMARATE INH SCH ×2 (09:04→19:34)
[2021-01-24] MEDS: Lisinopril 10 MG TAB PO SCH (21:14)
[2021-01-25] MEDS: Budesonide 0.5 MG/2 ML NEB NEB SCH ×2 (05:46→18:53)
[2021-01-25] MEDS: FORMOTEROL FUMARATE INH SCH ×2 (10:00→20:00)
[2021-01-25] MEDS: predniSONE 20 MG TAB PO SCH (10:20)
[2021-01-25] MEDS: Loratadine 10 MG TAB PO SCH (10:21)
[2021-01-25] MEDS: Aspirin 325 MG TAB PO SCH (10:21)
[2021-01-25] MEDS: Docusate 100 MG CAP PO SCH ×2 (10:21→20:02)
[2021-01-25] MEDS: Acetaminophen 325 MG TAB PO PRN (20:01)
[2021-01-25] MEDS: Lisinopril 10 MG TAB PO SCH (20:01)
[2021-01-26] MEDS: Budesonide 0.5 MG/2 ML NEB NEB SCH ×2 (06:05→18:58)
[2021-01-26] MEDS: FORMOTEROL FUMARATE INH SCH ×2 (06:25→19:02)
[2021-01-26] MEDS: Aspirin 325 MG TAB PO SCH (09:48)
[2021-01-26] MEDS: Milk Of Magnesia 30 ML UDCUP PO PRN (09:48)
[2021-01-26] MEDS: Loratadine 10 MG TAB PO SCH (09:48)
[2021-01-26] MEDS: Docusate 100 MG CAP PO SCH ×2 (09:48→20:07)
[2021-01-26] MEDS: predniSONE 20 MG TAB PO SCH (09:56)
[2021-01-26 14:53] LABS: Bilirubin Negative (Negative); Blood, Urine Small (Negative); Clarity Clear (Clear); Glucose, Urine (Dipstick) Negative (Negative); Ketone, Urine Negative (Negative); Leukocyte Negative (Negative); Nitrite Negative (Negative); Protein, Urine (Dipstick) > or equal to 300 mg/dL (Neg-Trace); Specific Gravity, Urine 1.025 (1.005-1.030); Urobilinogen 0.2 mg/dL (Less than 2); pH, Urine 5.5 (5.0-9.0)
[2021-01-26 15:56] LABS: Bacteria/HPF Rare-Few HPF (None Seen); RBC/HPF 0-3 HPF (0-3); Squamous Epithelial 0-3 HPF (0-3); WBC/HPF 0-3 HPF (0-3)
[2021-01-26] MEDS: Lisinopril 10 MG TAB PO SCH (20:07)
[2021-01-27] MEDS: FORMOTEROL FUMARATE INH SCH ×2 (06:48→20:00)
[2021-01-27] MEDS: Budesonide 0.5 MG/2 ML NEB NEB SCH ×2 (06:48→18:15)
[2021-01-27] MEDS: predniSONE 20 MG TAB PO SCH (09:35)
[2021-01-27] MEDS: Docusate 100 MG CAP PO SCH ×2 (09:36→20:33)
[2021-01-27] MEDS: Aspirin 325 MG TAB PO SCH (09:36)
[2021-01-27] MEDS: Loratadine 10 MG TAB PO SCH (09:39)
[2021-01-27] MEDS: Milk Of Magnesia 30 ML UDCUP PO PRN (09:40)
[2021-01-27] MEDS: Lisinopril 10 MG TAB PO SCH (20:33)
[2021-01-28 05:52] LABS: Anion Gap 12 mmol/L (10-20); BUN (Urea Nitrogen) 52 mg/dL (9.8-20.1); Calc. Creatinine Clearance 23 mL/min (70-130); Calcium 8.4 mg/dL (7.8-10.44); Carbon Dioxide 31 mmol/L (23-31); Chloride 100 mmol/L (98-107); Glucose 121 mg/dL (83-110); Sodium 137 mmol/L (136-145)
[2021-01-28] MEDS: Budesonide 0.5 MG/2 ML NEB NEB SCH ×2 (05:59→18:23)
[2021-01-28] MEDS: FORMOTEROL FUMARATE INH SCH ×2 (06:00→18:25)
[2021-01-28] MEDS: Docusate 100 MG CAP PO SCH ×2 (09:47→20:40)
[2021-01-28] MEDS: Loratadine 10 MG TAB PO SCH (09:47)
[2021-01-28] MEDS: Aspirin 325 MG TAB PO SCH (09:47)
[2021-01-28] MEDS: predniSONE 20 MG TAB PO SCH (09:47)
[2021-01-28] MEDS: Polyethylene Glycol 3350 17 GM Packet PO SCH (09:48)
[2021-01-29] MEDS: Polyethylene Glycol 3350 17 GM Packet PO SCH (08:19)
[2021-01-29] MEDS: predniSONE 20 MG TAB PO SCH (08:20)
[2021-01-29] MEDS: Aspirin 325 MG TAB PO SCH (08:20)
[2021-01-29] MEDS: Docusate 100 MG CAP PO SCH ×2 (08:20→20:24)
[2021-01-29] MEDS: Loratadine 10 MG TAB PO SCH (08:20)
[2021-01-29] MEDS ORDERED: REVEFENACIN 175 MCG/3 ML NEB SCH (11:00)
[2021-01-29 13:04] LABS: Bilirubin Negative (Negative); Blood, Urine Negative (Negative); Glucose, Urine (Dipstick) Negative (Negative); Ketone, Urine Negative (Negative); Leukocyte Small (Negative); Nitrite Positive (Negative); Protein, Urine (Dipstick) > or equal to 300 mg/dL (Neg-Trace); Urobilinogen 0.2 mg/dL (Less than 2)
[2021-01-29 13:16] LABS: Clarity Hazy (Clear); Specific Gravity, Urine 1.032 (1.002-1.036)
[2021-01-29 13:17] LABS: Bacteria/HPF 2+ HPF (None Seen); Squamous Epithelial 0-3 HPF (0-3)
[2021-01-29 13:18] LABS: Urine Culture Reflex Yes Yes
[2021-01-29] MEDS: Budesonide 0.5 MG/2 ML NEB NEB SCH ×2 (18:12→18:19)
[2021-01-29] MEDS: Arformoterol 15 MCG/2 ML NEB NEB SCH (18:15)
[2021-01-29] MEDS: FORMOTEROL FUMARATE INH SCH (18:20)
[2021-01-29] MEDS: Ciprofloxacin 500 MG TAB PO SCH (20:23)
[2021-01-30 02:05] LABS: SARS-CoV-2 PCR by NAA Not Detected (NotDetected)
[2021-01-30] MEDS: Ciprofloxacin 500 MG TAB PO SCH ×2 (05:54→20:36)
[2021-01-30] MEDS: Arformoterol 15 MCG/2 ML NEB NEB SCH ×2 (05:55→18:26)
[2021-01-30] MEDS: Budesonide 0.5 MG/2 ML NEB NEB SCH ×2 (05:56→18:24)
[2021-01-30] MEDS: Aspirin 325 MG TAB PO SCH (09:03)
[2021-01-30] MEDS: Polyethylene Glycol 3350 17 GM Packet PO SCH (09:03)
[2021-01-30] MEDS: Docusate 100 MG CAP PO SCH ×2 (09:04→20:37)
[2021-01-30] MEDS: Loratadine 10 MG TAB PO SCH (09:12)
[2021-01-30] MEDS: REVEFENACIN 175 MCG/3 ML NEB SCH (09:15)
[2021-01-31] MEDS: Arformoterol 15 MCG/2 ML NEB NEB SCH ×2 (05:27→17:58)
[2021-01-31] MEDS: Budesonide 0.5 MG/2 ML NEB NEB SCH ×2 (05:28→18:03)
[2021-01-31] MEDS: Ciprofloxacin 500 MG TAB PO SCH ×2 (06:34→20:42)
[2021-01-31] MEDS: Polyethylene Glycol 3350 17 GM Packet PO SCH (08:59)
[2021-01-31] MEDS: Aspirin 325 MG TAB PO SCH (08:59)
[2021-01-31] MEDS: Loratadine 10 MG TAB PO SCH (09:00)
[2021-01-31] MEDS: Docusate 100 MG CAP PO SCH ×2 (09:00→20:42)
[2021-01-31] MEDS: REVEFENACIN 175 MCG/3 ML NEB SCH (09:16)
[2021-02-01] MEDS: Arformoterol 15 MCG/2 ML NEB NEB SCH ×2 (05:38→18:05)
[2021-02-01] MEDS: Ciprofloxacin 500 MG TAB PO SCH ×2 (05:38→20:45)
[2021-02-01] MEDS: Budesonide 0.5 MG/2 ML NEB NEB SCH ×2 (06:19→18:04)
[2021-02-01 10:00] LABS: #Basophils 0.1 thou/uL (0.0-0.2); #Eosinphils 0.2 thou/uL (0.0-0.7); #Monocytes 0.4 thou/uL (0.11-0.59); %Basophils 0.5 % (0.0-1.0); %Eosinophils 1.7 % (0.0-10.0); %Lymphocytes 8.1 % (21.0-51.0); %Monocytes 3.1 % (0.0-10.0); %Neutrophils 86.5 % (42.0-75.0); Hemoglobin 11.9 g/dL (12.0-16.0); Mean Corpuscular HGB CONC 30.8 g/dL (32.0-36.0); Mean Corpuscular Hemoglobin 30.9 pg (27.0-31.0); Platelet Count 203 thou/uL (130-400); RBC Distribution Width 13.3 % (11.5-14.5); Red Blood Cell (RBC) Count 3.86 mill/uL (4.20-5.40); White Blood Cell (WBC) Count 12.8 thou/uL (4.8-10.8)
[2021-02-01 10:30] LABS: Base Excess-Venous 6.5 mmol/L (-2.0 to 3.0); Bicarbonate (HCO3v) 33.9 mmol/L (22.0-28.0); Calcium, Ionized 1.14 mmol/L (1.15-1.33); Chloride 98 mmol/L (98-107); Hemoglobin - Calc 12.5 g/dL (12.0-16.0); Potassium 4.5 mmol/L (3.5-5.1); Sodium 139 mmol/L (138-145); T. Carbon Dioxide 35.8 mmol/L (22.0-28.0); vO2 Saturation-calc 91.4 % (60.0-85.0)
[2021-02-01 10:34] LABS: ALT (SGPT) 25 U/L (8-55); AST (SGOT) 21 U/L (5-34); Albumin 2.4 g/dL (3.4-4.8); Alkaline Phosphatase 77 U/L (40-110); Anion Gap 11 mmol/L (10-20); BUN (Urea Nitrogen) 43 mg/dL (9.8-20.1); Bilirubin, Total 0.2 mg/dL (0.2-1.2); Calc. Creatinine Clearance 27 mL/min (70-130); Calcium 8.5 mg/dL (7.8-10.44); Carbon Dioxide 34 mmol/L (23-31); Chloride 99 mmol/L (98-107); Globulin 2.4 g/dL (2.4-3.5); Glucose 129 mg/dL (83-110); Potassium 4.7 mmol/L (3.5-5.1); Protein, Total 4.8 g/dL (5.8-8.1); Sodium 139 mmol/L (136-145)
[2021-02-01] MEDS ORDERED: Sodium Chloride 0.9% 1,000 ML IV SCH (12:45)
[2021-02-01] MEDS: REVEFENACIN 175 MCG/3 ML NEB SCH (14:09)
[2021-02-01] MEDS: Aspirin 325 MG TAB PO SCH (14:09)
[2021-02-01 14:27] LABS: Troponin I 0.036 ng/mL (< 0.028)
[2021-02-01] MEDS: Docusate 100 MG CAP PO SCH ×2 (17:25→20:44)
[2021-02-01] MEDS: Loratadine 10 MG TAB PO SCH (17:25)
[2021-02-01] MEDS: Polyethylene Glycol 3350 17 GM Packet PO SCH (17:26)
[2021-02-02] MEDS: Arformoterol 15 MCG/2 ML NEB NEB SCH ×2 (05:33→17:53)
[2021-02-02] MEDS: Budesonide 0.5 MG/2 ML NEB NEB SCH ×2 (05:53→17:47)
[2021-02-02] MEDS: Ciprofloxacin 500 MG TAB PO SCH ×2 (05:53→20:51)
[2021-02-02] MEDS: Polyethylene Glycol 3350 17 GM Packet PO SCH (09:16)
[2021-02-02] MEDS: Aspirin 325 MG TAB PO SCH (09:20)
[2021-02-02] MEDS: Loratadine 10 MG TAB PO SCH (09:20)
[2021-02-02] MEDS: Docusate 100 MG CAP PO SCH ×2 (09:20→20:51)
[2021-02-02] MEDS: REVEFENACIN 175 MCG/3 ML NEB SCH (09:20)
[2021-02-03] MEDS: Arformoterol 15 MCG/2 ML NEB NEB SCH ×2 (05:58→17:56)
[2021-02-03] MEDS: Ciprofloxacin 500 MG TAB PO SCH ×2 (05:59→21:00)
[2021-02-03] MEDS: Budesonide 0.5 MG/2 ML NEB NEB SCH ×2 (06:29→18:06)
[2021-02-03] MEDS: Polyethylene Glycol 3350 17 GM Packet PO SCH (10:10)
[2021-02-03] MEDS: Docusate 100 MG CAP PO SCH ×2 (10:12→21:18)
[2021-02-03] MEDS: Aspirin 325 MG TAB PO SCH (10:12)
[2021-02-03] MEDS: Loratadine 10 MG TAB PO SCH (10:12)
[2021-02-03] MEDS: REVEFENACIN 175 MCG/3 ML NEB SCH (10:15)
[2021-02-03] MEDS: Acetaminophen 325 MG TAB PO PRN (21:16)
[2021-02-04] MEDS: Budesonide 0.5 MG/2 ML NEB NEB SCH ×2 (05:44→18:10)
[2021-02-04] MEDS: Ciprofloxacin 500 MG TAB PO SCH ×2 (05:45→21:00)
[2021-02-04] MEDS: Arformoterol 15 MCG/2 ML NEB NEB SCH ×2 (05:45→18:31)
[2021-02-04] MEDS: Aspirin 325 MG TAB PO SCH (08:35)
[2021-02-04] MEDS: Docusate 100 MG CAP PO SCH ×2 (08:35→21:00)
[2021-02-04] MEDS: Polyethylene Glycol 3350 17 GM Packet PO SCH (08:35)
[2021-02-04] MEDS: Loratadine 10 MG TAB PO SCH (08:35)
[2021-02-04] MEDS: REVEFENACIN 175 MCG/3 ML NEB SCH (09:25)
[2021-02-05] MEDS: Ciprofloxacin 500 MG TAB PO SCH ×2 (05:16→20:57)
[2021-02-05] MEDS: Arformoterol 15 MCG/2 ML NEB NEB SCH ×2 (05:16→18:08)
[2021-02-05] MEDS: Budesonide 0.5 MG/2 ML NEB NEB SCH ×2 (05:16→17:54)
[2021-02-05] MEDS: Loratadine 10 MG TAB PO SCH (09:21)
[2021-02-05] MEDS: Polyethylene Glycol 3350 17 GM Packet PO SCH (09:21)
[2021-02-05] MEDS: Aspirin 325 MG TAB PO SCH (09:21)
[2021-02-05] MEDS: Docusate 100 MG CAP PO SCH ×2 (09:22→20:57)
[2021-02-05] MEDS ORDERED: REVEFENACIN 175 MCG/3 ML NEB SCH (11:00)
[2021-02-05] MEDS: REVEFENACIN 175 MCG/3 ML NEB SCH (11:20)
[2021-02-05] MEDS ORDERED: Bisacodyl 10 MG SUPP PR PRN (13:13)
[2021-02-06] MEDS: Ciprofloxacin 500 MG TAB PO SCH ×2 (05:13→21:18)
[2021-02-06] MEDS: Budesonide 0.5 MG/2 ML NEB NEB SCH ×2 (05:14→17:06)
[2021-02-06] MEDS: Arformoterol 15 MCG/2 ML NEB NEB SCH ×2 (05:30→17:00)
[2021-02-06] MEDS: Loratadine 10 MG TAB PO SCH (06:37)
[2021-02-06] MEDS: Aspirin 325 MG TAB PO SCH (08:11)
[2021-02-06] MEDS: Polyethylene Glycol 3350 17 GM Packet PO SCH (08:11)
[2021-02-06] MEDS: Docusate 100 MG CAP PO SCH ×2 (08:11→21:17)
[2021-02-06] MEDS: REVEFENACIN 175 MCG/3 ML NEB SCH (12:08)
[2021-02-06] MEDS: Acetaminophen 325 MG TAB PO PRN (21:18)
[2021-02-07 00:43] LABS: SARS-CoV-2 PCR by NAA Not Detected (NotDetected)
[2021-02-07] MEDS: Ciprofloxacin 500 MG TAB PO SCH ×2 (05:35→21:22)
[2021-02-07] MEDS: Arformoterol 15 MCG/2 ML NEB NEB SCH ×2 (05:36→18:12)
[2021-02-07] MEDS: Budesonide 0.5 MG/2 ML NEB NEB SCH ×2 (05:37→18:15)
[2021-02-07] MEDS: Aspirin 325 MG TAB PO SCH (08:50)
[2021-02-07] MEDS: Polyethylene Glycol 3350 17 GM Packet PO SCH (08:50)
[2021-02-07] MEDS: Docusate 100 MG CAP PO SCH ×2 (09:02→21:23)
[2021-02-07] MEDS: Loratadine 10 MG TAB PO SCH (09:02)
[2021-02-07] MEDS: REVEFENACIN 175 MCG/3 ML NEB SCH (11:18)
[2021-02-08] MEDS: Ciprofloxacin 500 MG TAB PO SCH ×2 (05:09→20:11)
[2021-02-08] MEDS: Budesonide 0.5 MG/2 ML NEB NEB SCH ×2 (05:10→18:52)
[2021-02-08] MEDS: Arformoterol 15 MCG/2 ML NEB NEB SCH ×2 (05:14→18:55)
[2021-02-08] MEDS: Polyethylene Glycol 3350 17 GM Packet PO SCH (08:32)
[2021-02-08] MEDS: Loratadine 10 MG TAB PO SCH (08:34)
[2021-02-08] MEDS: Aspirin 325 MG TAB PO SCH (08:34)
[2021-02-08] MEDS: Docusate 100 MG CAP PO SCH ×2 (08:35→20:12)
[2021-02-08] MEDS: REVEFENACIN 175 MCG/3 ML NEB SCH (12:31)
[2021-02-08] MEDS ORDERED: Lorazepam 1 MG TAB PO SCH (18:00)
[2021-02-09] MEDS: Budesonide 0.5 MG/2 ML NEB NEB SCH ×2 (05:06→18:08)
[2021-02-09] MEDS: Arformoterol 15 MCG/2 ML NEB NEB SCH ×2 (05:07→17:12)
[2021-02-09] MEDS ORDERED: diphenhydrAMINE 25 MG CAP PO PRN (06:01)
[2021-02-09] MEDS ORDERED: Lorazepam 1 MG TAB PO PRN (07:01)
[2021-02-09] MEDS: Aspirin 325 MG TAB PO SCH (08:57)
[2021-02-09] MEDS: Loratadine 10 MG TAB PO SCH (08:57)
[2021-02-09] MEDS: Docusate 100 MG CAP PO SCH ×2 (08:57→20:25)
[2021-02-09] MEDS: Polyethylene Glycol 3350 17 GM Packet PO SCH (08:57)
[2021-02-09] MEDS: REVEFENACIN 175 MCG/3 ML NEB SCH (12:23)
[2021-02-10] MEDS: Budesonide 0.5 MG/2 ML NEB NEB SCH ×2 (05:42→17:45)
[2021-02-10] MEDS: Arformoterol 15 MCG/2 ML NEB NEB SCH ×2 (05:43→17:45)
[2021-02-10] MEDS: Docusate 100 MG CAP PO SCH ×2 (08:37→20:02)
[2021-02-10] MEDS: Aspirin 325 MG TAB PO SCH (08:37)
[2021-02-10] MEDS: Loratadine 10 MG TAB PO SCH (08:37)
[2021-02-10] MEDS: Polyethylene Glycol 3350 17 GM Packet PO SCH (08:37)
[2021-02-10] MEDS: REVEFENACIN 175 MCG/3 ML NEB SCH (11:05)
[2021-02-11 05:04] VITALS: BMI 24.5
[2021-02-11] MEDS: Budesonide 0.5 MG/2 ML NEB NEB SCH ×2 (05:17→18:03)
[2021-02-11] MEDS: Arformoterol 15 MCG/2 ML NEB NEB SCH ×2 (05:19→18:27)
[2021-02-11] MEDS: Aspirin 325 MG TAB PO SCH (09:19)
[2021-02-11] MEDS: Loratadine 10 MG TAB PO SCH (09:20)
[2021-02-11] MEDS: Docusate 100 MG CAP PO SCH ×2 (09:20→21:16)
[2021-02-11] MEDS: Polyethylene Glycol 3350 17 GM Packet PO SCH (09:20)
[2021-02-11] MEDS: REVEFENACIN 175 MCG/3 ML NEB SCH (11:29)
[2021-02-11 14:56] LABS: Anion Gap 13 mmol/L (10-20); BUN (Urea Nitrogen) 33 mg/dL (9.8-20.1); Calc. Creatinine Clearance 30 mL/min (70-130); Calcium 9.2 mg/dL (7.8-10.44); Carbon Dioxide 32 mmol/L (23-31); Chloride 101 mmol/L (98-107); Glucose 102 mg/dL (83-110); Potassium 4.7 mmol/L (3.5-5.1); Sodium 141 mmol/L (136-145)
[2021-02-12] MEDS: Budesonide 0.5 MG/2 ML NEB NEB SCH ×2 (05:16→17:51)
[2021-02-12] MEDS: Arformoterol 15 MCG/2 ML NEB NEB SCH ×2 (05:25→18:08)
[2021-02-12] MEDS: Loratadine 10 MG TAB PO SCH (09:33)
[2021-02-12] MEDS: Aspirin 325 MG TAB PO SCH (09:34)
[2021-02-12] MEDS: Docusate 100 MG CAP PO SCH ×2 (09:34→20:26)
[2021-02-12] MEDS: Polyethylene Glycol 3350 17 GM Packet PO SCH (09:35)
[2021-02-12] MEDS: REVEFENACIN 175 MCG/3 ML NEB SCH (12:08)
[2021-02-13] MEDS: Budesonide 0.5 MG/2 ML NEB NEB SCH ×2 (05:38→18:35)
[2021-02-13] MEDS: Arformoterol 15 MCG/2 ML NEB NEB SCH ×2 (05:44→18:37)
[2021-02-13] MEDS: Polyethylene Glycol 3350 17 GM Packet PO SCH (08:21)
[2021-02-13] MEDS: Aspirin 325 MG TAB PO SCH (08:21)
[2021-02-13] MEDS: Docusate 100 MG CAP PO SCH ×2 (08:27→21:34)
[2021-02-13] MEDS: Loratadine 10 MG TAB PO SCH (08:27)
[2021-02-13] MEDS: REVEFENACIN 175 MCG/3 ML NEB SCH (14:20)
[2021-02-14] MEDS: Budesonide 0.5 MG/2 ML NEB NEB SCH (05:14)
[2021-02-14] MEDS: Arformoterol 15 MCG/2 ML NEB NEB SCH (05:14)
[2021-02-14 06:45] VITALS: BP 121/81; TEMP 98.4
[2021-02-14] MEDS: Polyethylene Glycol 3350 17 GM Packet PO SCH (08:50)
[2021-02-14] MEDS: Docusate 100 MG CAP PO SCH (08:53)
[2021-02-14] MEDS: Loratadine 10 MG TAB PO SCH (08:53)
[2021-02-14] MEDS: Aspirin 325 MG TAB PO SCH (08:53)
[2021-02-14] MEDS: REVEFENACIN 175 MCG/3 ML NEB SCH (13:47)
== END 2021-02-14 12:50 | disposition home health service (06) | DRG 948 ==
LOC: BURMED 16:24
PROVIDERS: ADMIT Family Medicine; ATTEND Family Medicine
DX: R53.81 Other malaise (principal); J44.1 Chronic obstructive pulmonary disease with (acute) exacerbation; N39.0 Urinary tract infection, site not specified; Z66 Do not resuscitate; I42.9 Cardiomyopathy, unspecified; Z20.822 Contact with and (suspected) exposure to COVID-19; E78.5 Hyperlipidemia, unspecified; R09.02 Hypoxemia; I50.9 Heart failure, unspecified; I11.0 Hypertensive heart disease with heart failure; R33.9 Retention of urine, unspecified; R09.89 Other specified symptoms and signs involving the circulatory and respiratory systems; Z95.810 Presence of automatic (implantable) cardiac defibrillator; Z79.82 Long term (current) use of aspirin; Z79.51 Long term (current) use of inhaled steroids; Z88.8 Allergy status to other drugs, medicaments and biological substances; Z79.899 Other long term (current) drug therapy; Z98.890 Other specified postprocedural states
CPT/HCPCS: 36415; 36416; 71045; 80048; 80053; 81001; 82330; 82435; 82553; 82803; 83880; 84132; 84295; 84484; 85014; 85025; 87077; 87086; 87186; 94640; J7050; J7512; J7620; J7626; Q0163; U0003; U0005

== ENCOUNTER 2021-02-13 12:43 | Emergency (ER) | payer MEDICARE | END 2021-02-13 13:45 | disposition swing bed, planned readmission (89) | LOC: BURERS 12:43 | DX: R09.89 Other specified symptoms and signs involving the circulatory and respiratory systems (principal); E78.5 Hyperlipidemia, unspecified; E78.00 Pure hypercholesterolemia, unspecified; I11.0 Hypertensive heart disease with heart failure; I50.9 Heart failure, unspecified; Z87.891 Personal history of nicotine dependence | CPT/HCPCS: 71045 ==

== ENCOUNTER 2021-03-16 16:11 | Emergency (ER) | payer MEDICARE ==
[2021-03-16 16:37] LABS: Bilirubin Negative (Negative); Blood, Urine Small (Negative); Clarity Clear (Clear); Glucose, Urine (Dipstick) Negative (Negative); Ketone, Urine Negative (Negative); Leukocyte Negative (Negative); Nitrite Negative (Negative); Protein, Urine (Dipstick) > or equal to 300 mg/dL (Neg-Trace); Urobilinogen 0.2 mg/dL (Less than 2)
[2021-03-16 16:43] LABS: Bacteria/HPF None Seen HPF (None Seen); Other Microscopic Description C&S SET UP; RBC/HPF 0-3 HPF (0-3); Squamous Epithelial 0-3 HPF (0-3); WBC/HPF 0-3 HPF (0-3)
== END 2021-03-16 17:02 | disposition home or self-care (01) ==
LOC: BURERS 16:11
DX: R35.0 Frequency of micturition (principal); E78.5 Hyperlipidemia, unspecified; E78.00 Pure hypercholesterolemia, unspecified; I50.9 Heart failure, unspecified; J44.9 Chronic obstructive pulmonary disease, unspecified; I25.10 Atherosclerotic heart disease of native coronary artery without angina pectoris; I11.0 Hypertensive heart disease with heart failure; Z87.891 Personal history of nicotine dependence
CPT/HCPCS: 81003; 81015; 87086; 99283